=== PATIENT | male | born 1940 | race Caucasian/White ===

== ENCOUNTER 2019-04-24 20:47 | Inpatient (IN) | payer BC, OTHER ==
[2019-04-24] MEDS ORDERED: LIDOCAINE 5% TOPICAL PATCH TP ONE (21:47)
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
[2019-04-24] MEDS ORDERED: diazePAM 2 MG TABLET PO ONE (21:59)
[2019-04-24] MEDS ORDERED: LIDOCAINE 5% TOPICAL PATCH ONE (22:36)
[2019-04-24] MEDS ORDERED: diazePAM 2 MG TABLET ONE (22:36)
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
[2019-04-24] MEDS ORDERED: morphine CARPU-JECT 4 MG/1 ML DISP.SYRIN IVPUSH ONE (23:08)
[2019-04-24] MEDS ORDERED: MORPHINE SULFATE 2 MG/ML VIAL ONE (23:23)
[2019-04-24 23:41] LABS: BASO % 0.6 % (0-2.0); EOS % 1.4 % (0-4.5); HEMATOCRIT 32.3 % (35.4-49); HEMOGLOBIN 10.7 GM/dL (11.7-16.9); LYMPH % 21.4 % (8-40); MCH 30.2 pg (25.7-33.7); MCHC 33.1 g/dl (32.0-35.9); MEAN CELL VOLUME 91.3 fl (80-96); MEAN PLT VOLUME 9.3 fl (7.5-11.1); MONO % 8.1 % (3.8-10.2); NEUT % 68.5 % (42.8-82.8); PLATELET COUNT 124 K/MM3 (134-434); RBC 3.54 M/mm3 (4.00-5.60); RDW 14.3 % (11.9-15.9); WHITE BLOOD COUNT 6.3 K/mm3 (4.0-10.0)
[2019-04-25 00:14] LABS: ALBUMIN 3.4 g/dl (3.4-5.0); BILIRUBIN,TOTAL 0.4 mg/dL (0.2-1); BLOOD UREA NITROGEN 16.3 mg/dL (7-18); CREATININE 1.3 mg/dL (0.55-1.3); POTASSIUM 3.9 mmol/L (3.5-5.1); TOT PROT 6.5 g/dl (6.4-8.2)
[2019-04-25] MEDS ORDERED: morphine CARPU-JECT 4 MG/1 ML DISP.SYRIN IVPUSH ONE (01:00)
[2019-04-25] MEDS ORDERED: morphine SULFATE 4 MG/ML VIAL ONE (01:13)
[2019-04-25] MEDS ORDERED: METHOCARBAMOL 500 MG TABLET PO ONE (02:36)
[2019-04-25] MEDS ORDERED: KETOROLAC TROMETHAMINE 30 MG/1 ML VIAL IVPUSH ONE (02:36)
[2019-04-25] MEDS ORDERED: KETOROLAC TROMETHAMINE 30 MG/1 ML VIAL ONE (02:38)
[2019-04-25] MEDS ORDERED: METHOCARBAMOL 500 MG TABLET ONE (02:38)
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
[2019-04-25] MEDS ORDERED: GABAPENTIN 100 MG CAPSULE (FP) PO SCH ×2 (07:30→14:00)
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
[2019-04-25] MEDS ORDERED: PATIENT'S OWN MEDICATION (NON-FORMULARY) (Lidocaine [Aspercreme] 1 EACH) TP SCH (10:00)
[2019-04-25] MEDS ORDERED: LIDOCAINE PATCH REMOVAL MC SCH (10:00)
[2019-04-25] MEDS ORDERED: METOPROLOL TARTRATE 50 MG TABLET (FP) PO SCH (10:00)
[2019-04-25] MEDS ORDERED: MORPHINE SULFATE 2 MG/ML VIAL ONE (10:21)
[2019-04-25] MEDS: MORPHINE SULFATE 2 MG/ML VIAL IVPUSH PRN ×3 (10:27→20:22)
[2019-04-25 11:37] VITALS: BMI 25.7
[2019-04-25] MEDS: CLOPIDOGREL BISULFATE 75 MG TABLET (FP) PO SCH (12:53)
[2019-04-25] MEDS: LISINOPRIL 20 MG TABLET (FP) PO SCH (12:53)
[2019-04-25] MEDS: METOPROLOL TARTRATE 50 MG TABLET (FP) PO SCH ×2 (12:53→22:38)
[2019-04-25] MEDS: ASPIRIN 81 MG CHEWABLE TABLETS PO SCH (12:54)
[2019-04-25] MEDS: HEPARIN NA (PORCINE) 5,000 UNITS/ML 1ML VIAL SQ SCH ×2 (12:54→22:37)
--- NOTE | 2019-04-25 14:17 | EKG ---
Test Reason : Blood Pressure : / mmHG Vent. Rate : 099 BPM Atrial Rate : 099 BPM P-R Int : 154 ms QRS Dur : 062 ms QT Int : 346 ms P-R-T Axes : 036 010 043 degrees QTc Int : 444 ms POOR DATA QUALITY, INTERPRETATION MAY BE ADVERSELY AFFECTED NORMAL SINUS RHYTHM CANNOT RULE OUT SEPTAL INFARCT , AGE UNDETERMINED ABNORMAL ECG Confirmed by SHIRA RAINES MD ([id number]) on 04/25/2019 2:17:15 PM Referred By: Confirmed By:SHIRA RAINES MD
[2019-04-25] MEDS ORDERED: PT OWN MED DRAWER 7, Y5N ONE ×3 (14:22→22:51)
--- NOTE | 2019-04-25 14:32 | CON.CARD ---
Cardiology Consult (text) - Consultation Consultation Note: cc: back pain hpi: 78 m hx htn, hld, cad s/p remote pci, tavr 02/2018, here with low back pain. Has been present for months but worse now and limiting him so came to ER. No cp sob palps dizzy loc pnd orthopnea le edema. Sees outside placement interviewer regularly. pmh: per hpi psh: tavr social: +tob fam: no premature cad ros: per hpi; all others nl meds: Home Medications Medication Instructions Recorded Acetaminophen [Tylenol] 325 mg PO PRN PRN 04/25/19 Aspirin [ASA -] 81 mg PO DAILY 04/25/19 Clopidogrel Bisulfate [Clopidogrel] 75 mg PO DAILY 04/25/19 Docusate Sodium 100 mg PO BID 04/25/19 Gabapentin 100 mg PO TID 04/25/19 Heparin - 5,000 unit SQ TID 04/25/19 Lidocaine [Aspercreme] 1 each TP DAILY 04/25/19 Lisinopril 20 mg PO DAILY 04/25/19 Metoprolol Tartrate 50 mg PO DAILY 04/25/19 Oxycodone HCl 5 mg PO PRN PRN 04/25/19 Sennosides [Senna] 8.6 mg PO BID 04/25/19 Simvastatin 40 mg PO HS 04/25/19 Tizanidine HCl 2 mg PO TID 04/25/19 pe: Vital Signs Period Temp Pulse Resp BP Sys/López Pulse Ox Last 24 Hr 97.4 F-97.7 F 87-89 16-20 114-162/61-75 95-100 nad no jvd rrr s1s2 no mrg cta bl nl eff aao3 no le e/c/c abd nt nd pos bs no jaundice diaphoresis pos dp pt no carotid bruits Laboratory Last Values WBC 6.3 K/mm3 (4.0-10.0) 04/24/19 23:25 RBC 3.54 M/mm3 (4.00-5.60) L 04/24/19 23:25 Hgb 10.7 GM/dL (11.7-16.9) L 04/24/19 23:25 Hct 32.3 % (35.4-49) L 04/24/19 23:25 MCV 91.3 fl (80-96) 04/24/19 23:25 MCH 30.2 pg (25.7-33.7) 04/24/19 23:25 MCHC 33.1 g/dl (32.0-35.9) 04/24/19 23:25 RDW 14.3 % (11.9-15.9) 04/24/19 23:25 Plt Count 124 K/MM3 (134-434) L 04/24/19 23:25 MPV 9.3 fl (7.5-11.1) 04/24/19 23:25 Absolute Neuts (auto) 4.3 K/mm3 (1.5-8.0) 04/24/19 23:25 Neutrophils % 68.5 % (42.8-82.8) 04/24/19 23:25 Lymphocytes % 21.4 % (8-40) 04/24/19 23:25 Monocytes % 8.1 % (3.8-10.2) 04/24/19 23:25 Eosinophils % 1.4 % (0-4.5) 04/24/19 23:25 Basophils % 0.6 % (0-2.0) 04/24/19 23:25 Nucleated RBC % 0 % (0-0) 04/24/19 23:25 Sodium 135 mmol/L (136-145) L 04/24/19 23:25 Potassium 3.9 mmol/L (3.5-5.1) 04/24/19 23:25 Chloride 103 mmol/L (98-107) 04/24/19 23:25 Carbon Dioxide 22 mmol/L (21-32) 04/24/19 23:25 Anion Gap 10 MMOL/L (8-16) 04/24/19 23:25 BUN 16.3 mg/dL (7-18) 04/24/19 23:25 Creatinine 1.3 mg/dL (0.55-1.3) 04/24/19 23:25 Est GFR (CKD-EPI)AfAm 61.00 04/24/19 23:25 Est GFR (CKD-EPI)NonAf 52.63 04/24/19 23:25 Random Glucose 76 mg/dL (74-106) 04/24/19 23:25 Calcium 9.0 mg/dL (8.5-10.1) 04/24/19 23:25 Total Bilirubin 0.4 mg/dL (0.2-1) 04/24/19 23:25 AST 24 U/L (15-37) 04/24/19 23:25 ALT 23 U/L (13-61) 04/24/19 23:25 Alkaline Phosphatase 61 U/L (45-117) 04/24/19 23:25 Total Protein 6.5 g/dl (6.4-8.2) 04/24/19 23:25 Albumin 3.4 g/dl (3.4-5.0) 04/24/19 23:25 Salicylates 4.5 mg/dL (2.8-20) 04/24/19 23:32 Acetaminophen 28.2 04/24/19 23:32 ecg: sr nl intervals no ischemic changes cxr: clear lungs a/p: 78 m hx htn, hld, cad s/p remote pci, tavr 02/2018, here with low back pain. back pain: -neuro, pain management eval htn: -cont raeann, bb hld: -cont statin cad, remote pci: -stable no angina no signs acs -cont bb, raeann, asa, statin, plavix as s/p tavr: -stable, no signs chf -remains on dapt
[2019-04-25] MEDS: GABAPENTIN 300 MG CAPSULE (FP) PO SCH ×2 (14:51→22:37)
[2019-04-25] MEDS: PHENYLEPHRINE HCL/COCOA BUTTER SUPPOSITORY RC SCH ×2 (16:41→22:38)
[2019-04-25] MEDS: TIZANIDINE HCL 2 MG TABLET PO SCH ×2 (16:41→22:52)
--- NOTE | 2019-04-25 21:55 | CONSULT ---
Consult Consult Specialty:: General Surgery Referred by:: Dr. Jones Reason for Consultation:: hemorrhoids - History of Present Illness Chief Complaint: back pain; prolapsing hemorrhoids - History Source History Provided By: Patient Limitations to Obtaining History: No Limitations - Past Medical History Cardio/Vascular: Yes: CAD, HTN, Hyperlipdemia Gastrointestinal: Yes: Hemorrhoids Musculoskeletal: Yes: Chronic low back pain, Osteoarthritis - Past Surgical History Past Surgical History: Yes: Hernia Repair (RIH), Stent (cardiac and LE), Tonsillectomy, Valve Replacement (TAVR) - Alcohol/Substance Use Hx Alcohol Use: Yes (occasional) History of Substance Use: reports: None - Smoking History Smoking history: Current some day smoker Have you smoked in the past 12 months: Yes If you are a former smoker, when did you quit?: quit 14 years ago but resumed occasional smoking recently - Social History ADL: Independent History of Recent Travel: No Home Medications - Allergies Allergies/Adverse Reactions: Allergies Allergy/AdvReac Type Severity Reaction Status Date / Time No Known Allergies Allergy Verified 04/24/19 22:13 - Home Medications Home Medications: Ambulatory Orders Acetaminophen [Tylenol] 325 mg PO PRN PRN 04/25/19 Aspirin [ASA -] 81 mg PO DAILY 04/25/19 Clopidogrel Bisulfate [Clopidogrel] 75 mg PO DAILY 04/25/19 Docusate Sodium 100 mg PO BID 04/25/19 Gabapentin 100 mg PO TID 04/25/19 Heparin - 5,000 unit SQ TID 04/25/19 Lidocaine [Aspercreme] 1 each TP DAILY 04/25/19 Lisinopril 20 mg PO DAILY 04/25/19 Metoprolol Tartrate 50 mg PO DAILY 04/25/19 Oxycodone HCl 5 mg PO PRN PRN 04/25/19 Sennosides [Senna] 8.6 mg PO BID 04/25/19 Simvastatin 40 mg PO HS 04/25/19 Tizanidine HCl 2 mg PO TID 04/25/19 Family Medical History Family History: Unremarkable (noncontributory) Review of Systems - Review of Systems Constitutional: denies: Chills, Fever Eyes: denies: Blurred Vision, Recent Change in Vision HENT: denies: Difficult Swallowing, Throat Pain Neck: denies: Swollen Glands, Tenderness Cardiovascular: denies: Chest Pain, Palpitations Respiratory: denies: Cough, SOB Gastrointestinal: reports: Other (hemorrhoids). denies: Abdominal Pain, Constipation, Diarrhea, Nausea, Vomiting Genitourinary: reports: Other (has to push hard, feels like bladder full and can 't empty well) Musculoskeletal: reports: Back Pain, Joint Pain (right hip/buttock from back) Integumentary: denies: Change in Color, Rash Neurological: denies: Dizziness, Headache Physical Exam Vital Signs: Vital Signs Temperature 98.0 F 04/25/19 15:00 Pulse Rate 89 04/25/19 15:00 Respiratory Rate 20 04/25/19 15:00 Blood Pressure 139/79 04/25/19 15:00 O2 Sat by Pulse Oximetry (%) 100 04/25/19 10:07 Constitutional: Yes: Well Nourished, No Distress, Calm Eyes: Yes: Conjunctiva Clear, EOM Intact HENT: Yes: Atraumatic, Normocephalic Neck: Yes: Supple, Trachea Midline Cardiovascular: Yes: Regular Rate and Rhythm, Murmur Respiratory: Yes: Regular, CTA Bilaterally Gastrointestinal: Yes: Normal Bowel Sounds, Soft, Tenderness (mild suprapubic - bladder feels full). No: Distention, Tenderness, Rebound ...Rectal Exam: Yes: Hemorrhoids/External (left-sided skin tags present, minimal tenderness along left edge of anus), Hemorrhoids/Internal (pt showed picture of prolapsed, large internal hemorrhoid - not palpable on current exam, not currently bothering him - he usually pushes it back in), Sphincter Tone Normal Renal/: Yes: Bladder Distention. No: CVA Tenderness - Left, CVA Tenderness - Right Musculoskeletal: Yes: Back Pain. No: Joint Swelling Extremities: No: Cool, Cyanosis Edema: No Peripheral Pulses WNL: Yes Integumentary: No: Jaundice, Rash Neurological: Yes: Alert, Oriented Psychiatric: Yes: Alert, Oriented Labs: CBC, BMP 04/24/19 23:25 04/24/19 23:25 CMP Sodium 135 mmol/L (136-145) L 04/24/19 23:25 Potassium 3.9 mmol/L (3.5-5.1) 04/24/19 23:25 Chloride 103 mmol/L (98-107) 04/24/19 23:25 Carbon Dioxide 22 mmol/L (21-32) 04/24/19 23:25 Anion Gap 10 MMOL/L (8-16) 04/24/19 23:25 BUN 16.3 mg/dL (7-18) 04/24/19 23:25 Creatinine 1.3 mg/dL (0.55-1.3) 04/24/19 23:25 Est GFR (CKD-EPI)AfAm 61.00 04/24/19 23:25 Est GFR (CKD-EPI)NonAf 52.63 04/24/19 23:25 Random Glucose 76 mg/dL (74-106) 04/24/19 23:25 Calcium 9.0 mg/dL (8.5-10.1) 04/24/19 23:25 Total Bilirubin 0.4 mg/dL (0.2-1) 04/24/19 23:25 AST 24 U/L (15-37) 04/24/19 23:25 ALT 23 U/L (13-61) 04/24/19 23:25 Alkaline Phosphatase 61 U/L (45-117) 04/24/19 23:25 Total Protein 6.5 g/dl (6.4-8.2) 04/24/19 23:25 Albumin 3.4 g/dl (3.4-5.0) 04/24/19 23:25 BUN/Cr upper normal Imaging - Results Cat Scan: Image Reviewed (lumbar CT images reviewed - anorectal area not visualized) Problem List - Problems (1) Hemorrhoids that prolapse with straining and require manual replacement back inside anal canal Assessment/Plan: pt self-manages well not currently bothersome he states no longer so swollen no pain, not prolapsed self-reduction prn pt on asa and plavix no intervention indicated at this time consider colorectal referral once back issue is resolved Thank you for the opportunity to participate in the care of this patient. Code(s): K64.2 - THIRD DEGREE HEMORRHOIDS (2) Residual hemorrhoidal skin tags Assessment/Plan: external hemorrhoids not thrombosed, not bothersome agree with preparation H topically PRN no intervention indicated Code(s): K64.4 - RESIDUAL HEMORRHOIDAL SKIN TAGS (3) HTN (hypertension) Code(s): I10 - ESSENTIAL (PRIMARY) HYPERTENSION Qualifiers: Hypertension type: essential hypertension Qualified Code(s): I10 - Essential (primary) hypertension (4) Intractable back pain Code(s): M54.9 - DORSALGIA, UNSPECIFIED (5) Osteoarthritis Code(s): M19.90 - UNSPECIFIED OSTEOARTHRITIS, UNSPECIFIED SITE Qualifiers: Osteoarthritis location: spine Spinal region: lumbosacral Spinal osteoarthritis complication: with radiculopathy Qualified Code(s): M47.27 - Other spondylosis with radiculopathy, lumbosacral region (6) CAD (coronary artery disease) Code(s): I25.10 - ATHSCL HEART DISEASE OF [place] CORONARY ARTERY W/O ANG PCTRS Qualifiers: Coronary Disease-Associated Artery/Lesion type: [place] artery [place] vs. transplanted heart: [place] heart Associated angina: without angina Qualified Code(s): I25.10 - Atherosclerotic heart disease of [place] coronary artery without angina pectoris
[2019-04-25] MEDS: HYDROCORTISONE 2.5% TOPICAL CREAM 30 GM TUBE TP SCH (22:37)
[2019-04-25] MEDS: ATORVASTATIN CA 20 MG TABLET (FP) PO SCH (22:37)
[2019-04-26] MEDS: MORPHINE SULFATE 2 MG/ML VIAL IVPUSH PRN ×4 (00:23→18:50)
--- NOTE | 2019-04-26 05:16 | HOSP ---
Subjective - Review of Symptoms Events since last encounter: 78 year old male hospitalized due intractable low back pain, radiating down RLE. @ 4:04 am Rn notified [facility] bladder scan showed 999 ml of urine - straight cath was inserted returned noted 1000 ml - repeat bladder scan in 2-3 hours if noted with retention will ordered Parks catheter General: No: Chills, Night Sweats, Fatigue, Malaise, Appetite, Other HEENT: No: Head Aches, Visual Changes, Eye Pain, Ear Pain, Dysphasia, Sinus Congestion, Post Nasal Drip, Sore Throat, Other Pulmonary: No: Dyspnea, Cough, Pleuritic Chest Pain, Other Cardiovascular: No: Chest Pain, Palpitations, Orthopnea, Paroxysmal Noc. Dyspnea , Edema, Light Headedness, Other Gastrointestinal: No: Nausea, NOSYM, Vomiting, Abdominal Pain, Diarrhea, Constipation, Melena, Hematochezia, Other Genitourinary: Yes: Retention Musculoskeletal: No: No Symptoms, Back Pain, Crepitus, Decreased ROM, Extremity Pain, Joint Pain, Joint Swelling, Muscle Pain, Muscle Cramps, Muscle Weakness, Other Neurological: No: Weakness, Numbness, Incoordination, Change in speech, Confusion, Seizures, Other Physical Examination Vital Signs: Vital Signs Temperature 97.8 F 04/25/19 23:54 Pulse Rate 80 04/25/19 23:54 Respiratory Rate 20 04/25/19 23:54 Blood Pressure 149/70 04/25/19 23:54 O2 Sat by Pulse Oximetry (%) 100 04/25/19 20:00 Constitutional: Yes: No Distress, Calm Eyes: Yes: Conjunctiva Clear, EOM Intact HENT: Yes: Atraumatic, Normocephalic Neck: Yes: Supple, Trachea Midline Cardiovascular: Yes: Regular Rate and Rhythm Respiratory: Yes: Regular, CTA Bilaterally Gastrointestinal: Yes: Normal Bowel Sounds, Soft Renal/: Yes: Bladder Distention Labs: CBC, BMP 04/24/19 23:25 04/24/19 23:25 Hospitalist Encounter Assessment: # bladder retention - suprapubic pain - bladder sono showed 999 ml - straight cath done x1 1000ml drained - repeat sono in 2 hours if still with retention consider parks cath
[2019-04-26] MEDS ORDERED: PT OWN MED DRAWER 7, Y5N ONE ×2 (07:12→22:04)
[2019-04-26] MEDS: TIZANIDINE HCL 2 MG TABLET PO SCH ×3 (07:13→22:15)
[2019-04-26] MEDS: GABAPENTIN 300 MG CAPSULE (FP) PO SCH ×3 (07:13→22:14)
[2019-04-26 08:51] LABS: HEMATOCRIT 35.8 % (35.4-49); MCH 30.4 pg (25.7-33.7); MCHC 33.6 g/dl (32.0-35.9); MEAN CELL VOLUME 90.6 fl (80-96); MEAN PLT VOLUME 8.6 fl (7.5-11.1); PLATELET COUNT 174 K/MM3 (134-434); RBC 3.95 M/mm3 (4.00-5.60); RDW 14.5 % (11.9-15.9); WHITE BLOOD COUNT 7.3 K/mm3 (4.0-10.0)
[2019-04-26 09:06] LABS: ALBUMIN 3.6 g/dl (3.4-5.0); BILIRUBIN,TOTAL 0.5 mg/dL (0.2-1); BLOOD UREA NITROGEN 16.3 mg/dL (7-18); CALCIUM 9.7 mg/dL (8.5-10.1); POTASSIUM 4.9 mmol/L (3.5-5.1); TOT PROT 7.2 g/dl (6.4-8.2)
[2019-04-26] MEDS: ASPIRIN 81 MG CHEWABLE TABLETS PO SCH (10:57)
[2019-04-26] MEDS: HEPARIN NA (PORCINE) 5,000 UNITS/ML 1ML VIAL SQ SCH ×2 (10:58→22:15)
[2019-04-26] MEDS: LISINOPRIL 20 MG TABLET (FP) PO SCH (10:58)
[2019-04-26] MEDS: CLOPIDOGREL BISULFATE 75 MG TABLET (FP) PO SCH (10:58)
[2019-04-26] MEDS: METOPROLOL TARTRATE 50 MG TABLET (FP) PO SCH ×2 (10:59→22:17)
[2019-04-26] MEDS: PHENYLEPHRINE HCL/COCOA BUTTER SUPPOSITORY RC SCH ×2 (10:59→22:16)
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
[2019-04-26 12:42] LABS: EPI CELLS 0.7 /HPF (0-5/HPF); HYALINE CASTS 107 /lpf (0-8); URINE APPEARANCE CLOUDY; URINE BACTERIA 8.1 /hpf (NEGATIVE); URINE BILIRUBIN NEGATIVE (NEGATIVE); URINE COLOR YELLOW; URINE GLUCOSE (UA) NEGATIVE (NEGATIVE); URINE KETONE 1+ (NEGATIVE); URINE LEUK ESTERASE 2+ (NEGATIVE); URINE NITRITE NEGATIVE (NEGATIVE); URINE PROTEIN NEGATIVE (NEGATIVE); URINE RBC 6 /hpf (0-4); URINE UROBILINOGEN 0.2 mg/dL (0.2-1.0); URINE WBC 130 /hpf (0-5)
[2019-04-26] MEDS ORDERED: CEFTRIAXONE 1 GM in DEXTROSE 5%-WATER - 50 ML IVPB ONE (13:00)
[2019-04-26] MEDS ORDERED: cefTRIAXone SODIUM 1 GM VIAL ONE (14:35)
[2019-04-26] MEDS ORDERED: DEXTROSE 5%-WATER - 50 ML IVPB ONE (14:35)
[2019-04-26] MEDS: DOCUSATE SODIUM 100 MG CAPSULE (FP) PO SCH ×2 (14:45→22:14)
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
[2019-04-26] MEDS: LIDOCAINE 5% TOPICAL PATCH TP SCH (18:04)
[2019-04-26] MEDS ORDERED: INSULIN (NOVOLOG) ASPART 100 UNITS/ML 10ML VIAL ONE (22:04)
[2019-04-26] MEDS: ATORVASTATIN CA 20 MG TABLET (FP) PO SCH (22:15)
[2019-04-26] MEDS: LIDOCAINE PATCH REMOVAL MC SCH (22:16)
[2019-04-26] MEDS: HYDROCORTISONE 2.5% TOPICAL CREAM 30 GM TUBE TP SCH ×2 (22:22→22:50)
[2019-04-27] MEDS: MORPHINE SULFATE 2 MG/ML VIAL IVPUSH PRN ×2 (01:00→06:08)
[2019-04-27] MEDS: GABAPENTIN 300 MG CAPSULE (FP) PO SCH ×3 (06:08→21:43)
[2019-04-27] MEDS: DOCUSATE SODIUM 100 MG CAPSULE (FP) PO SCH ×3 (06:08→21:43)
[2019-04-27] MEDS: TIZANIDINE HCL 2 MG TABLET PO SCH ×3 (06:09→21:45)
[2019-04-27] MEDS ORDERED: PT OWN MED DRAWER 7, Y5N ONE ×2 (06:56→21:08)
[2019-04-27 09:56] LABS: BASO % 0.4 % (0-2.0); EOS % 1.5 % (0-4.5); HEMATOCRIT 35.4 % (35.4-49); HEMOGLOBIN 11.7 GM/dL (11.7-16.9); LYMPH % 15.9 % (8-40); MCH 30.2 pg (25.7-33.7); MCHC 33.1 g/dl (32.0-35.9); MEAN CELL VOLUME 91.2 fl (80-96); MEAN PLT VOLUME 8.7 fl (7.5-11.1); MONO % 5.7 % (3.8-10.2); NEUT % 76.5 % (42.8-82.8); PLATELET COUNT 172 K/MM3 (134-434); RBC 3.88 M/mm3 (4.00-5.60); RDW 14.1 % (11.9-15.9); WHITE BLOOD COUNT 6.8 K/mm3 (4.0-10.0)
[2019-04-27 10:19] LABS: ALBUMIN 3.5 g/dl (3.4-5.0); BILIRUBIN,TOTAL 0.3 mg/dL (0.2-1); BLOOD UREA NITROGEN 20.5 mg/dL (7-18); CALCIUM 9.6 mg/dL (8.5-10.1); CREATININE 1.2 mg/dL (0.55-1.3); MAGNESIUM 2.2 mg/dL (1.8-2.4)
[2019-04-27] MEDS: LISINOPRIL 20 MG TABLET (FP) PO SCH (11:06)
[2019-04-27] MEDS: ASPIRIN 81 MG CHEWABLE TABLETS PO SCH (11:06)
[2019-04-27] MEDS: CLOPIDOGREL BISULFATE 75 MG TABLET (FP) PO SCH (11:06)
[2019-04-27] MEDS: HEPARIN NA (PORCINE) 5,000 UNITS/ML 1ML VIAL SQ SCH ×2 (11:06→21:42)
[2019-04-27] MEDS: METOPROLOL TARTRATE 50 MG TABLET (FP) PO SCH ×2 (11:06→21:43)
[2019-04-27] MEDS ORDERED: oxyCODONE HCL 5 MG TABLET PO PRN (12:35)
[2019-04-27] MEDS ORDERED: POLYETHYLENE GLYCOL 3350 119 GM BTL PO ONE (12:37)
[2019-04-27] MEDS ORDERED: TAMSULOSIN HCL 0.4 MG CAP PO ONE (12:39)
[2019-04-27] MEDS ORDERED: ACETAMINOPHEN 325 MG TABLET (FP) PO PRN (12:39)
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
[2019-04-27] MEDS ORDERED: LIDOCAINE 5% TOPICAL PATCH TP ONE (12:51)
[2019-04-27] MEDS: oxyCODONE HCL 10 MG SUSTAINED ACTING TABLET PO SCH ×2 (13:00→21:42)
[2019-04-27] MEDS: LIDOCAINE 5% TOPICAL PATCH TP SCH (13:10)
[2019-04-27] MEDS: PHENYLEPHRINE HCL/COCOA BUTTER SUPPOSITORY RC SCH ×2 (13:10→21:45)
[2019-04-27] MEDS ORDERED: SENNOSIDES 8.6MG TABLET (FP) PO PRN (14:33)
[2019-04-27] MEDS ORDERED: BISACODYL 10 MG SUPP.RECT PR PRN (14:33)
[2019-04-27] MEDS: oxyCODONE HCL 5 MG TABLET PO PRN (18:35)
[2019-04-27] MEDS: ATORVASTATIN CA 20 MG TABLET (FP) PO SCH (21:42)
[2019-04-27] MEDS: LIDOCAINE PATCH REMOVAL MC SCH ×2 (21:44)
[2019-04-28] MEDS: TIZANIDINE HCL 2 MG TABLET PO SCH ×3 (06:03→22:37)
[2019-04-28] MEDS: DOCUSATE SODIUM 100 MG CAPSULE (FP) PO SCH ×3 (06:04→22:36)
[2019-04-28] MEDS: oxyCODONE HCL 5 MG TABLET PO PRN ×2 (06:04→13:09)
[2019-04-28] MEDS: GABAPENTIN 300 MG CAPSULE (FP) PO SCH ×3 (06:04→22:36)
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
[2019-04-28] MEDS ORDERED: POLYETHYLENE GLYCOL 3350 119 GM BTL PO SCH (10:00)
[2019-04-28] MEDS: LIDOCAINE 5% TOPICAL PATCH TP SCH (10:49)
[2019-04-28] MEDS: TAMSULOSIN HCL 0.4 MG CAP PO SCH (10:50)
[2019-04-28] MEDS: oxyCODONE HCL 10 MG SUSTAINED ACTING TABLET PO SCH ×2 (10:50→22:36)
[2019-04-28] MEDS: CLOPIDOGREL BISULFATE 75 MG TABLET (FP) PO SCH (10:50)
[2019-04-28] MEDS: HEPARIN NA (PORCINE) 5,000 UNITS/ML 1ML VIAL SQ SCH ×2 (10:51→22:36)
[2019-04-28] MEDS: ASPIRIN 81 MG CHEWABLE TABLETS PO SCH (10:51)
[2019-04-28] MEDS: POLYETHYLENE GLYCOL 3350 119 GM BTL PO SCH ×2 (10:57→22:41)
[2019-04-28] MEDS: METOPROLOL TARTRATE 50 MG TABLET (FP) PO SCH ×2 (10:57→22:36)
[2019-04-28 11:49] LABS: BASO % 0.5 % (0-2.0); EOS % 1.7 % (0-4.5); HEMOGLOBIN 11.9 GM/dL (11.7-16.9); LYMPH % 15.6 % (8-40); MCH 30.1 pg (25.7-33.7); MEAN CELL VOLUME 91.2 fl (80-96); MEAN PLT VOLUME 9.4 fl (7.5-11.1); MONO % 4.6 % (3.8-10.2); NEUT % 77.6 % (42.8-82.8); PLATELET COUNT 169 K/MM3 (134-434); RBC 3.95 M/mm3 (4.00-5.60); RDW 14.3 % (11.9-15.9); WHITE BLOOD COUNT 6.7 K/mm3 (4.0-10.0)
[2019-04-28 12:16] LABS: ALBUMIN 3.4 g/dl (3.4-5.0); BILIRUBIN,TOTAL 0.3 mg/dL (0.2-1); BLOOD UREA NITROGEN 26.9 mg/dL (7-18); CALCIUM 9.3 mg/dL (8.5-10.1); CREATININE 1.7 mg/dL (0.55-1.3); MAGNESIUM 2.3 mg/dL (1.8-2.4); POTASSIUM 4.5 mmol/L (3.5-5.1)
[2019-04-28] MEDS: LISINOPRIL 20 MG TABLET (FP) PO SCH (12:17)
[2019-04-28] MEDS ORDERED: PT OWN MED DRAWER 7, Y5N ONE ×2 (12:25→22:35)
[2019-04-28] MEDS: PHENYLEPHRINE HCL/COCOA BUTTER SUPPOSITORY RC SCH ×2 (13:07→22:37)
--- NOTE | 2019-04-28 15:32 | PN ---
Progress Note (short form) - Note Progress Note: s: no chest pain, palps, dizziness, dyspnea Current Medications Aspirin (Asa -) 81 mg PO DAILY [facility] Last Admin: 04/28/19 10:51 Dose: 81 mg Atorvastatin Calcium (Lipitor -) 20 mg PO HS [facility] Last Admin: 04/27/19 21:42 Dose: 20 mg Bisacodyl (Dulcolax Suppository -) 10 mg [place] PRN PRN PRN Reason: CONSTIPATION Clopidogrel Bisulfate (Plavix -) 75 mg PO DAILY [facility] Last Admin: 04/28/19 10:50 Dose: 75 mg [place] Butter/Phenylephrine (Preparation H Suppository) 1 each RC BID [facility] Last Admin: 04/28/19 13:07 Dose: 1 each Docusate Sodium (Colace -) 100 mg PO TID [facility] Last Admin: 04/28/19 13:07 Dose: 100 mg Gabapentin (Neurontin -) 300 mg PO TID [facility] Last Admin: 04/28/19 13:08 Dose: 300 mg Heparin Sodium (Porcine) (Heparin -) 5,000 unit SQ BID [facility] Last Admin: 04/28/19 10:51 Dose: 5,000 unit Hydrocortisone (Anusol 2.5% Hc Cream -) 1 applic TP ONCE [facility] Last Admin: 04/26/19 22:50 Dose: 1 applic Lidocaine (Lidoderm Patch -) 2 patch TP DAILY [facility] Last Admin: 04/28/19 10:49 Dose: 2 patch Lisinopril (Prinivil) 20 mg PO DAILY [facility] Last Admin: 04/28/19 12:17 Dose: Not Given Metoprolol Tartrate (Lopressor -) 50 mg PO BID [facility] Last Admin: 04/28/19 10:57 Dose: Not Given Miscellaneous (Lidoderm Patch Removal) 1 each MC DAILY@2199 [facility] Last Admin: 04/27/19 21:44 Dose: 1 each Miscellaneous (Lidoderm Patch Removal) 1 each MC DAILY@2199 [facility] Last Admin: 04/27/19 21:44 Dose: 1 each Oxycodone HCl (Oxycontin -) 10 mg PO BID [facility] Last Admin: 04/28/19 10:50 Dose: 10 mg Oxycodone HCl (Roxicodone -) 5 mg PO Q4H PRN PRN Reason: PAIN LEVEL 6-10 Last Admin: 04/28/19 13:09 Dose: 5 mg Polyethylene Glycol (Miralax (For Daily Use) -) 17 gm PO BID [facility] Last Admin: 04/28/19 10:57 Dose: 17 grams Senna (Senna -) 2 tab PO [facility] Tamsulosin HCl (Flomax -) 0.8 mg PO DAILY@0830 [facility] Last Admin: 04/28/19 10:50 Dose: 0.8 mg Tizanidine HCl (Tizanidine Hcl) 2 mg PO TID [facility] Last Admin: 04/28/19 13:08 Dose: 2 mg Vital Signs Period Temp Pulse Resp BP Sys/López Pulse Ox Last 24 Hr 98.4 F 62-77 20-20 102-128/48-57 96-96 nad no jvd rrr s1s2 no mrg cta bl nl eff aao3 no le e/c/c abd nt nd pos bs no jaundice diaphoresis pos dp pt no carotid bruits ecg: sr nl intervals no ischemic changes cxr: clear lungs a/p: 78 m hx htn, hld, cad s/p remote pci, tavr 02/2018, here with low back pain. back pain: -neuro, pain management eval, MRI pending htn: -cont raeann, bb hld: -cont statin cad, remote pci: -stable no angina no signs acs -cont bb, raeann, asa, statin, plavix - last PCI 2009, >1 year since TAVR, if intervention needed would be able to hold plavix for 5 days prior to procedure as s/p tavr: -stable, no signs chf -remains on dapt
[2019-04-28] MEDS: SENNOSIDES 8.6MG TABLET (FP) PO SCH (22:36)
[2019-04-28] MEDS: LIDOCAINE PATCH REMOVAL MC SCH ×2 (22:37→22:42)
[2019-04-28] MEDS: HYDROCORTISONE 2.5% TOPICAL CREAM 30 GM TUBE TP SCH (22:37)
[2019-04-28] MEDS: ATORVASTATIN CA 20 MG TABLET (FP) PO SCH (22:37)
[2019-04-29] MEDS: DOCUSATE SODIUM 100 MG CAPSULE (FP) PO SCH ×3 (05:08→21:17)
[2019-04-29] MEDS: TIZANIDINE HCL 2 MG TABLET PO SCH ×3 (05:08→21:24)
[2019-04-29] MEDS: GABAPENTIN 300 MG CAPSULE (FP) PO SCH ×3 (05:09→21:17)
[2019-04-29] MEDS: TAMSULOSIN HCL 0.4 MG CAP PO SCH (08:55)
[2019-04-29] MEDS: LIDOCAINE 5% TOPICAL PATCH TP SCH (09:36)
[2019-04-29] MEDS: METOPROLOL TARTRATE 50 MG TABLET (FP) PO SCH ×2 (09:36→21:17)
[2019-04-29] MEDS: CLOPIDOGREL BISULFATE 75 MG TABLET (FP) PO SCH (09:36)
[2019-04-29] MEDS: oxyCODONE HCL 10 MG SUSTAINED ACTING TABLET PO SCH ×2 (09:37→21:15)
[2019-04-29] MEDS: LISINOPRIL 20 MG TABLET (FP) PO SCH (09:38)
[2019-04-29] MEDS: ASPIRIN 81 MG CHEWABLE TABLETS PO SCH (09:38)
[2019-04-29] MEDS: HEPARIN NA (PORCINE) 5,000 UNITS/ML 1ML VIAL SQ SCH (09:39)
[2019-04-29] MEDS: PHENYLEPHRINE HCL/COCOA BUTTER SUPPOSITORY RC SCH ×2 (09:40→21:23)
[2019-04-29] MEDS: POLYETHYLENE GLYCOL 3350 119 GM BTL PO SCH ×2 (09:43→21:23)
[2019-04-29] MEDS ORDERED: PT OWN MED DRAWER 7, Y5N ONE ×2 (09:53→13:35)
--- NOTE | 2019-04-29 11:47 | PN ---
Progress Note (short form) - Note Progress Note: s: no chest pain, palps, dizziness, dyspnea Current Medications Aspirin (Asa -) 81 mg PO DAILY [facility] Last Admin: 04/29/19 09:38 Dose: 81 mg Atorvastatin Calcium (Lipitor -) 20 mg PO HS [facility] Last Admin: 04/28/19 22:37 Dose: 20 mg Bisacodyl (Dulcolax Suppository -) 10 mg [place] PRN PRN PRN Reason: CONSTIPATION Clopidogrel Bisulfate (Plavix -) 75 mg PO DAILY [facility] Last Admin: 04/29/19 09:36 Dose: 75 mg [place] Butter/Phenylephrine (Preparation H Suppository) 1 each RC BID [facility] Last Admin: 04/29/19 09:40 Dose: 1 each Docusate Sodium (Colace -) 100 mg PO TID [facility] Last Admin: 04/29/19 05:08 Dose: 100 mg Gabapentin (Neurontin -) 300 mg PO TID [facility] Last Admin: 04/29/19 05:09 Dose: 300 mg Heparin Sodium (Porcine) (Heparin -) 5,000 unit SQ BID [facility] Last Admin: 04/29/19 09:39 Dose: 5,000 unit Hydrocortisone (Anusol 2.5% Hc Cream -) 1 applic TP ONCE [facility] Last Admin: 04/28/19 22:37 Dose: 1 applic Lidocaine (Lidoderm Patch -) 2 patch TP DAILY [facility] Last Admin: 04/29/19 09:36 Dose: 2 patch Lisinopril (Prinivil) 20 mg PO DAILY [facility] Last Admin: 04/29/19 09:38 Dose: 20 mg Metoprolol Tartrate (Lopressor -) 50 mg PO BID [facility] Last Admin: 04/29/19 09:36 Dose: 50 mg Miscellaneous (Lidoderm Patch Removal) 1 each MC DAILY@0 [facility] Last Admin: 04/28/19 22:42 Dose: 1 each Miscellaneous (Lidoderm Patch Removal) 1 each MC DAILY@0 [facility] Last Admin: 04/28/19 22:37 Dose: 1 each Oxycodone HCl (Oxycontin -) 10 mg PO BID [facility] Last Admin: 04/29/19 09:37 Dose: 10 mg Oxycodone HCl (Roxicodone -) 5 mg PO Q4H PRN PRN Reason: PAIN LEVEL 6-10 Last Admin: 04/28/19 13:09 Dose: 5 mg Polyethylene Glycol (Miralax (For Daily Use) -) 17 gm PO BID [facility] Last Admin: 04/29/19 09:43 Dose: 17 grams Senna (Senna -) 2 tab PO HS [facility] Last Admin: 04/28/19 22:36 Dose: 2 tab Tamsulosin HCl (Flomax -) 0.8 mg PO DAILY@0830 [facility] Last Admin: 04/29/19 08:55 Dose: 0.8 mg Tizanidine HCl (Tizanidine Hcl) 2 mg PO TID [facility] Last Admin: 04/29/19 05:08 Dose: 2 mg Vital Signs Period Temp Pulse Resp BP Sys/López Pulse Ox Last 24 Hr 97.6 F-98.4 F 71-77 18-20 110-115/47-55 96-96 nad no jvd rrr s1s2 no mrg cta bl nl eff aao3 no le e/c/c abd nt nd pos bs no jaundice diaphoresis pos dp pt no carotid bruits ecg: sr nl intervals no ischemic changes cxr: clear lungs a/p: 78 m hx htn, hld, cad s/p remote pci, tavr 02/2018, here with low back pain. back pain: -neuro, pain management eval htn: -cont raeann, bb hld: -cont statin cad, remote pci: -stable no angina no signs acs -cont bb, raeann, asa, statin, plavix - last PCI 2009, >1 year since TAVR, if intervention needed would be able to hold plavix for 5 days prior to procedure as s/p tavr: -stable, no signs chf -remains on dapt
[2019-04-29 12:34] LABS: BASO % 0.5 % (0-2.0); EOS % 1.5 % (0-4.5); HEMATOCRIT 33.5 % (35.4-49); HEMOGLOBIN 11.4 GM/dL (11.7-16.9); LYMPH % 12.8 % (8-40); MCH 30.8 pg (25.7-33.7); MCHC 34.2 g/dl (32.0-35.9); MEAN PLT VOLUME 8.8 fl (7.5-11.1); MONO % 4.3 % (3.8-10.2); NEUT % 80.9 % (42.8-82.8); PLATELET COUNT 174 K/MM3 (134-434); RBC 3.72 M/mm3 (4.00-5.60); RDW 14.3 % (11.9-15.9); WHITE BLOOD COUNT 6.8 K/mm3 (4.0-10.0)
[2019-04-29 13:02] LABS: ALBUMIN 3.3 g/dl (3.4-5.0); BILIRUBIN,TOTAL 0.4 mg/dL (0.2-1); CALCIUM 9.7 mg/dL (8.5-10.1); CREATININE 1.1 mg/dL (0.55-1.3); MAGNESIUM 2.2 mg/dL (1.8-2.4); POTASSIUM 5.3 mmol/L (3.5-5.1); TOT PROT 7.1 g/dl (6.4-8.2)
[2019-04-29] MEDS ORDERED: SODIUM POLYSTYRENE SULFONATE 15 GM/60 ML BOTTLE PO ONE (13:32)
--- NOTE | 2019-04-29 13:42 | PN ---
Progress Note (short form) - Note Progress Note: C/o RLE weakness and persistent RLE pain. MRI noted. Neurofibroma vs herniated disc L4-L5 foramina. Dr Mccauley is planning surgery vs TARAN after off Plavix /ASA x 5 days. Cardiology consult appreciated. They agree with 5 days withholding ASA/PLavix. Last Vital Signs Temp Pulse Resp BP Pulse Ox 97.6 F 71 18 115/47 L 96 04/29/19 08:53 04/29/19 08:53 04/29/19 08:53 04/29/19 08:53 04/29/19 09:00 PE A&Ox3 Neck supple Lungs are clear Heart S1S2 regular Abdomen soft, NT RLE pain on streight elevation. Current Active Problems Problem Status Onset Back pain Acute CAD (coronary artery disease) Acute DVT prophylaxis Acute Diabetes 1.5, managed as type 2 Hyperkalemia. Acute HTN (hypertension) Acute Hemorrhoids that prolapse with straining and require manual replacement back inside anal canal Acute Intractable back pain LS DISC HERNIATION VS Fifroma L2-3, L3-4 Acute Osteoarthritis Acute Prophylactic measure Acute Residual hemorrhoidal skin tags Acute Urinary retention Acute Plan D/C Heparin, Plavix, ASA Lovenox 60 mg Q12 Kayexalate 30 Repeat BMP in AM Continue Oxycodone for pain, Neurontine, Tizanidine. Problem List - Problems (1) CAD (coronary artery disease) Code(s): I25.10 - ATHSCL HEART DISEASE OF [place] CORONARY ARTERY W/O ANG PCTRS Qualifiers: Coronary Disease-Associated Artery/Lesion type: [place] artery [place] vs. transplanted heart: [place] heart Associated angina: without angina Qualified Code(s): I25.10 - Atherosclerotic heart disease of [place] coronary artery without angina pectoris (2) Intractable back pain Code(s): M54.9 - DORSALGIA, UNSPECIFIED (3) Diabetes 1.5, managed as type 2 Code(s): E13.9 - OTHER SPECIFIED DIABETES MELLITUS WITHOUT COMPLICATIONS (4) HTN (hypertension) Code(s): I10 - ESSENTIAL (PRIMARY) HYPERTENSION Qualifiers: Hypertension type: essential hypertension Qualified Code(s): I10 - Essential (primary) hypertension
[2019-04-29] MEDS: ENOXAPARIN NA (PORCINE) 60 MG/0.6 ML DISP.SYRIN SQ SCH (14:03)
[2019-04-29] MEDS: SENNOSIDES 8.6MG TABLET (FP) PO SCH (21:16)
[2019-04-29] MEDS: ATORVASTATIN CA 20 MG TABLET (FP) PO SCH (21:17)
[2019-04-29] MEDS: HYDROCORTISONE 2.5% TOPICAL CREAM 30 GM TUBE TP SCH (21:29)
[2019-04-29] MEDS: LIDOCAINE PATCH REMOVAL MC SCH ×2 (21:30)
[2019-04-30] MEDS: ENOXAPARIN NA (PORCINE) 60 MG/0.6 ML DISP.SYRIN SQ SCH ×2 (02:40→13:05)
[2019-04-30] MEDS: TIZANIDINE HCL 2 MG TABLET PO SCH ×3 (05:59→22:14)
[2019-04-30] MEDS: DOCUSATE SODIUM 100 MG CAPSULE (FP) PO SCH ×3 (05:59→22:13)
[2019-04-30] MEDS: GABAPENTIN 300 MG CAPSULE (FP) PO SCH ×3 (05:59→22:13)
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
[2019-04-30 08:39] LABS: BLOOD UREA NITROGEN 29.1 mg/dL (7-18); CALCIUM 9.2 mg/dL (8.5-10.1); CREATININE 1.3 mg/dL (0.55-1.3)
[2019-04-30] MEDS: TAMSULOSIN HCL 0.4 MG CAP PO SCH (10:21)
[2019-04-30] MEDS: LISINOPRIL 20 MG TABLET (FP) PO SCH (10:22)
[2019-04-30] MEDS: LIDOCAINE 5% TOPICAL PATCH TP SCH (10:22)
[2019-04-30] MEDS: METOPROLOL TARTRATE 50 MG TABLET (FP) PO SCH ×2 (10:22→22:13)
[2019-04-30] MEDS: PHENYLEPHRINE HCL/COCOA BUTTER SUPPOSITORY RC SCH ×2 (10:23→22:15)
[2019-04-30] MEDS: POLYETHYLENE GLYCOL 3350 119 GM BTL PO SCH ×2 (10:24→22:13)
[2019-04-30] MEDS: oxyCODONE HCL 10 MG SUSTAINED ACTING TABLET PO SCH ×2 (10:24→22:13)
[2019-04-30] MEDS: oxyCODONE HCL 5 MG TABLET PO PRN (15:06)
--- NOTE | 2019-04-30 15:34 | PN ---
Progress Note (short form) - Note Progress Note: s: no chest pain, palps, dizziness, dyspnea Current Medications Generic Name Dose Route Start Last Admin Trade Name Freq PRN Reason Stop Dose Admin Atorvastatin Calcium 20 mg 04/25/19 22:00 04/29/19 21:17 Lipitor - PO 20 mg HS PAUL Administration Bisacodyl 10 mg 04/27/19 14:33 Dulcolax Suppository - [place] PRN PRN CONSTIPATION [place] Butter/Phenylephrine 1 each 04/25/19 10:00 04/30/19 10:23 Preparation H Suppository RC 1 each BID PAUL Administration Docusate Sodium 100 mg 04/26/19 14:00 04/30/19 15:05 Colace - PO 100 mg TID PAUL Administration Enoxaparin Sodium 60 mg 04/29/19 13:45 04/30/19 13:05 Lovenox - SQ 60 mg Q12H PAUL Administration Gabapentin 300 mg 04/25/19 14:00 04/30/19 15:05 Neurontin - PO 300 mg TID PAUL Administration Hydrocortisone 1 applic 04/25/19 22:15 04/29/19 21:29 Anusol 2.5% Hc Cream - TP 1 applic ONCE PAUL Administration Lidocaine 2 patch 04/27/19 12:52 04/30/19 10:22 Lidoderm Patch - TP 2 patch DAILY PAUL Administration Lisinopril 20 mg 04/25/19 10:00 04/30/19 10:22 Prinivil PO 20 mg DAILY PAUL Administration Metoprolol Tartrate 50 mg 04/25/19 10:00 04/30/19 10:22 Lopressor - PO 50 mg BID PAUL Administration Miscellaneous 1 each 04/26/19 22:00 04/29/19 21:30 Lidoderm Patch Removal MC 1 each DAILY@2200 PAUL Administration Miscellaneous 1 each 04/27/19 22:00 04/29/19 21:30 Lidoderm Patch Removal MC 1 each DAILY@2200 PAUL Administration Oxycodone HCl 10 mg 04/27/19 13:00 04/30/19 10:24 Oxycontin - PO 10 mg BID PAUL Administration Oxycodone HCl 5 mg 04/28/19 08:21 04/30/19 15:06 Roxicodone - PO 5 mg Q4H PRN Administration PAIN LEVEL 6-10 Polyethylene Glycol 17 gm 04/28/19 10:00 04/30/19 10:24 Miralax (For Daily Use) - PO 17 grams BID PAUL Administration Senna 2 tab 04/28/19 22:00 04/29/19 21:16 Senna - PO 2 tab HS PAUL Administration Tamsulosin HCl 0.8 mg 04/28/19 08:30 04/30/19 10:21 Flomax - PO 0.8 mg DAILY@0830 PAUL Administration Tizanidine HCl 2 mg 04/25/19 14:00 04/30/19 05:59 Tizanidine Hcl PO 2 mg TID PAUL Administration Vital Signs Period Temp Pulse Resp BP Sys/López Pulse Ox Last 24 Hr 98.1 F-98.5 F 77-81 18-75 114-119/42-54 97 nad no jvd rrr s1s2 no mrg cta bl nl eff aao3 no le e/c/c abd nt nd pos bs no jaundice diaphoresis CBC, BMP 04/29/19 11:48 04/30/19 07:50 ecg: sr nl intervals no ischemic changes cxr: clear lungs a/p: 78 m hx htn, hld, cad s/p remote pci, tavr 02/2018, here with low back pain. back pain: -neuro, pain management eval htn: -cont raeann, bb hld: -cont statin cad, remote pci: -stable no angina no signs acs -cont bb, raeann, asa, statin, plavix - last PCI 2009, >1 year since TAVR, if intervention needed would be able to hold plavix for 5 days prior to procedure as s/p tavr: -stable, no signs chf -remains on dapt
[2019-04-30] MEDS: ATORVASTATIN CA 20 MG TABLET (FP) PO SCH (22:13)
[2019-04-30] MEDS: SENNOSIDES 8.6MG TABLET (FP) PO SCH (22:14)
[2019-04-30] MEDS: LIDOCAINE PATCH REMOVAL MC SCH ×2 (22:14)
[2019-04-30] MEDS: HYDROCORTISONE 2.5% TOPICAL CREAM 30 GM TUBE TP SCH (22:15)
[2019-05-01] MEDS: ENOXAPARIN NA (PORCINE) 60 MG/0.6 ML DISP.SYRIN SQ SCH ×2 (02:06→14:48)
[2019-05-01] MEDS: GABAPENTIN 300 MG CAPSULE (FP) PO SCH ×3 (07:04→22:33)
[2019-05-01] MEDS: DOCUSATE SODIUM 100 MG CAPSULE (FP) PO SCH ×3 (07:04→22:31)
[2019-05-01] MEDS: TIZANIDINE HCL 2 MG TABLET PO SCH ×3 (07:05→22:37)
[2019-05-01 07:39] LABS: BLOOD UREA NITROGEN 33.6 mg/dL (7-18); CREATININE 1.2 mg/dL (0.55-1.3)
--- NOTE | 2019-05-01 08:28 | PN ---
Progress Note (short form) - Note Progress Note: C/o back pain, RLE pain. Vital Signs Temp 98.1 F 05/01/19 06:24 Pulse 68 05/01/19 06:24 Resp 19 05/01/19 06:24 BP 124/64 05/01/19 06:24 Pulse Ox 97 04/30/19 09:00 Intake & Output 04/30/19 04/30/19 05/01/19 11:59 23:59 11:59 Intake Total 220 1130 Output Total 1200 500 Balance -980 630 Intake: Oral 220 1130 Output: Urine 1200 500 [place] 100 Void 1200 400 Other: Voiding Method Urinal Urinal # Unmeasured Voids Void 2 Bowel Movement Yes # Bowel Movements 1 Neck supple, no JVD Lungs are Clear Heart S1S2 regular , KENY LSB Abdomen soft, NT Ext RLE paresthesias. Laboratory Results - last 24 hr 04/30/19 05/01/19 07:50 06:33 Sodium 134 L 137 Potassium 5.0 5.0 Chloride 101 104 Carbon Dioxide 27 28 Anion Gap 6 L 6 L BUN 29.1 H 33.6 H Creatinine 1.3 1.2 Est GFR (CKD-EPI)AfAm 61.00 67.20 Est GFR (CKD-EPI)NonAf 52.63 57.98 Random Glucose 90 81 Calcium 9.2 9.0 Current Active Problems Problem Status Onset Back pain Acute CAD (coronary artery disease) Acute DVT prophylaxis Acute Diabetes 1.5, managed as type 2 Acute HTN (hypertension) Acute Hemorrhoids that prolapse with straining and require manual replacement back inside anal canal Acute Intractable back pain Acute Osteoarthritis Acute Prophylactic measure Acute Residual hemorrhoidal skin tags Acute Urinary retention Acute Plan OFF ASA/Plavix, continue Lovenox Pain [id number] PT Surgical f/u re Right LS radiculopathy Disc herniation. Problem List - Problems (1) CAD (coronary artery disease) Code(s): I25.10 - ATHSCL HEART DISEASE OF [place] CORONARY ARTERY W/O ANG PCTRS Qualifiers: Coronary Disease-Associated Artery/Lesion type: [place] artery [place] vs. transplanted heart: [place] heart Associated angina: without angina Qualified Code(s): I25.10 - Atherosclerotic heart disease of [place] coronary artery without angina pectoris (2) Intractable back pain Code(s): M54.9 - DORSALGIA, UNSPECIFIED (3) Diabetes 1.5, managed as type 2 Code(s): E13.9 - OTHER SPECIFIED DIABETES MELLITUS WITHOUT COMPLICATIONS (4) HTN (hypertension) Code(s): I10 - ESSENTIAL (PRIMARY) HYPERTENSION Qualifiers: Hypertension type: essential hypertension Qualified Code(s): I10 - Essential (primary) hypertension
[2019-05-01] MEDS ORDERED: PT OWN MED DRAWER 7, Y5N ONE (09:45)
[2019-05-01] MEDS: TAMSULOSIN HCL 0.4 MG CAP PO SCH (09:52)
[2019-05-01] MEDS: oxyCODONE HCL 10 MG SUSTAINED ACTING TABLET PO SCH ×2 (09:52→22:31)
[2019-05-01] MEDS: LISINOPRIL 20 MG TABLET (FP) PO SCH (09:52)
[2019-05-01] MEDS: METOPROLOL TARTRATE 50 MG TABLET (FP) PO SCH ×2 (09:52→22:33)
[2019-05-01] MEDS: LIDOCAINE 5% TOPICAL PATCH TP SCH (09:53)
[2019-05-01] MEDS: POLYETHYLENE GLYCOL 3350 119 GM BTL PO SCH ×2 (09:54→22:34)
[2019-05-01] MEDS: PHENYLEPHRINE HCL/COCOA BUTTER SUPPOSITORY RC SCH ×2 (09:55→22:37)
--- NOTE | 2019-05-01 12:57 | PN ---
Progress Note (short form) - Note Progress Note: s: no chest pain, palps, dizziness, dyspnea Current Medications Generic Name Dose Route Start Last Admin Trade Name Freq PRN Reason Stop Dose Admin Atorvastatin Calcium 20 mg 04/25/19 22:00 04/30/19 22:13 Lipitor - PO 20 mg HS PAUL Administration Bisacodyl 10 mg 04/27/19 14:33 Dulcolax Suppository - [place] PRN PRN CONSTIPATION [place] Butter/Phenylephrine 1 each 04/25/19 10:00 05/01/19 09:55 Preparation H Suppository RC 1 each BID PAUL Administration Docusate Sodium 100 mg 04/26/19 14:00 05/01/19 07:04 Colace - PO 100 mg TID PAUL Administration Enoxaparin Sodium 60 mg 04/29/19 13:45 05/01/19 02:06 Lovenox - SQ 60 mg Q12H PAUL Administration Gabapentin 300 mg 04/25/19 14:00 05/01/19 07:04 Neurontin - PO 300 mg TID PAUL Administration Hydrocortisone 1 applic 04/25/19 22:15 04/30/19 22:15 Anusol 2.5% Hc Cream - TP 1 applic ONCE PAUL Administration Lidocaine 2 patch 04/27/19 12:52 05/01/19 09:53 Lidoderm Patch - TP 2 patch DAILY PAUL Administration Lisinopril 20 mg 04/25/19 10:00 05/01/19 09:52 Prinivil PO 20 mg DAILY PAUL Administration Metoprolol Tartrate 50 mg 04/25/19 10:00 05/01/19 09:52 Lopressor - PO 50 mg BID PAUL Administration Miscellaneous 1 each 04/26/19 22:00 04/30/19 22:14 Lidoderm Patch Removal MC 1 each DAILY@2200 PAUL Administration Miscellaneous 1 each 04/27/19 22:00 04/30/19 22:14 Lidoderm Patch Removal MC 1 each DAILY@2200 PAUL Administration Oxycodone HCl 10 mg 04/27/19 13:00 05/01/19 09:52 Oxycontin - PO 10 mg BID PAUL Administration Oxycodone HCl 5 mg 04/28/19 08:21 04/30/19 15:06 Roxicodone - PO 5 mg Q4H PRN Administration PAIN LEVEL 6-10 Polyethylene Glycol 17 gm 04/28/19 10:00 05/01/19 09:54 Miralax (For Daily Use) - PO 17 grams BID PAUL Administration Senna 2 tab 04/28/19 22:00 04/30/19 22:14 Senna - PO 2 tab HS PAUL Administration Tamsulosin HCl 0.8 mg 04/28/19 08:30 05/01/19 09:52 Flomax - PO 0.8 mg DAILY@0830 PAUL Administration Tizanidine HCl 2 mg 04/25/19 14:00 05/01/19 07:05 Tizanidine Hcl PO Not Given TID PAUL CBC, BMP 04/29/19 11:48 05/01/19 06:33 Vital Signs Period Temp Pulse Resp BP Sys/López Pulse Ox Last 24 Hr 98.1 F-98.5 F 68-89 19-20 96-140/47-64 99 nad no jvd rrr s1s2 no mrg cta bl nl eff aao3 no le e/c/c abd nt nd pos bs no jaundice diaphoresis ecg: sr nl intervals no ischemic changes cxr: clear lungs a/p: 78 m hx htn, hld, cad s/p remote pci, tavr 02/2018, here with low back pain. back pain: -neuro, pain management eval htn: -cont raeann, bb hld: -cont statin cad, remote pci: -stable no angina no signs acs -cont bb, raeann, asa, statin, plavix - last PCI 2009, >1 year since TAVR, if intervention needed would be able to hold plavix for 5 days prior to procedure as s/p tavr: -stable, no signs chf -remains on dapt
[2019-05-01] MEDS: oxyCODONE HCL 5 MG TABLET PO PRN (14:50)
[2019-05-01] MEDS: SENNOSIDES 8.6MG TABLET (FP) PO SCH (22:33)
[2019-05-01] MEDS: ATORVASTATIN CA 20 MG TABLET (FP) PO SCH (22:33)
[2019-05-01] MEDS: LIDOCAINE PATCH REMOVAL MC SCH ×2 (22:38)
[2019-05-01] MEDS: HYDROCORTISONE 2.5% TOPICAL CREAM 30 GM TUBE TP SCH (22:41)
[2019-05-02] MEDS: oxyCODONE HCL 5 MG TABLET PO PRN (00:22)
[2019-05-02] MEDS: ENOXAPARIN NA (PORCINE) 60 MG/0.6 ML DISP.SYRIN SQ SCH ×2 (01:50→14:24)
[2019-05-02] MEDS ORDERED: PT OWN MED DRAWER 7, Y5N ONE ×2 (05:04→09:36)
[2019-05-02] MEDS: GABAPENTIN 300 MG CAPSULE (FP) PO SCH ×3 (05:06→21:07)
[2019-05-02] MEDS: DOCUSATE SODIUM 100 MG CAPSULE (FP) PO SCH ×3 (05:07→21:07)
[2019-05-02] MEDS: TIZANIDINE HCL 2 MG TABLET PO SCH ×3 (05:07→21:09)
--- NOTE | 2019-05-02 09:51 | PN ---
Progress Note (short form) - Note Progress Note: C/o severe RLE pain, especially when OOB and attempts to ambulate with PT. OFF Plavix/ASA Vital Signs (72 hours) 04/29/19 04/29/19 04/29/19 15:00 18:00 22:00 Temperature 98.4 F 98.1 F Pulse Rate 71 77 Respiratory 18 75 H 18 Rate Blood Pressure 113/57 L 116/42 L O2 Sat by Pulse 97 Oximetry (%) 04/30/19 04/30/19 04/30/19 05:55 09:00 14:34 Temperature 98.4 F 98.5 F Pulse Rate 81 77 Respiratory 20 17 20 Rate Blood Pressure 119/54 L 114/47 L O2 Sat by Pulse 97 Oximetry (%) 04/30/19 04/30/19 05/01/19 18:00 20:12 06:24 Temperature 98.4 F 98.3 F 98.1 F Pulse Rate 78 75 68 Respiratory 20 19 Rate Blood Pressure 107/51 L 96/47 L 124/64 O2 Sat by Pulse Oximetry (%) 05/01/19 05/01/19 05/01/19 09:20 14:47 19:14 Temperature 98.1 F 98.3 F 98.5 F Pulse Rate 89 91 H 89 Respiratory 19 19 20 Rate Blood Pressure 140/63 123/53 L 113/55 L O2 Sat by Pulse 99 Oximetry (%) 05/01/19 05/02/19 21:00 05:55 Temperature 98.5 F Pulse Rate 72 Respiratory 20 20 Rate Blood Pressure 111/47 L O2 Sat by Pulse 99 Oximetry (%) Awake, alert, Moderate distress when OOB, Lungs are clear Heart S1s2 regular Abdomen soft, NT RLE bent while in bed to decrease pain. RLE weakness, DTR decreased. Current Active Problems Problem Status Onset Back pain Acute CAD (coronary artery disease) Acute DVT prophylaxis Acute Diabetes 1.5, managed as type 2 Acute HTN (hypertension) Acute Hemorrhoids that prolapse with straining and require manual replacement back inside anal canal Acute Intractable back pain Acute Osteoarthritis Acute Prophylactic measure Acute Residual hemorrhoidal skin tags Acute Urinary retention Acute Laboratory Results - last 24 hr 05/01/19 05/02/19 11:42 06:52 POC Glucometer 103 78 Plan Pain management PT D/C BGM Lovenox Problem List - Problems (1) CAD (coronary artery disease) Code(s): I25.10 - ATHSCL HEART DISEASE OF [place] CORONARY ARTERY W/O ANG PCTRS Qualifiers: Coronary Disease-Associated Artery/Lesion type: [place] artery [place] vs. transplanted heart: [place] heart Associated angina: without angina Qualified Code(s): I25.10 - Atherosclerotic heart disease of [place] coronary artery without angina pectoris (2) Intractable back pain Code(s): M54.9 - DORSALGIA, UNSPECIFIED (3) Diabetes 1.5, managed as type 2 Code(s): E13.9 - OTHER SPECIFIED DIABETES MELLITUS WITHOUT COMPLICATIONS (4) HTN (hypertension) Code(s): I10 - ESSENTIAL (PRIMARY) HYPERTENSION Qualifiers: Hypertension type: essential hypertension Qualified Code(s): I10 - Essential (primary) hypertension
[2019-05-02] MEDS: PHENYLEPHRINE HCL/COCOA BUTTER SUPPOSITORY RC SCH ×2 (10:02→21:10)
[2019-05-02] MEDS: METOPROLOL TARTRATE 50 MG TABLET (FP) PO SCH ×2 (10:02→21:08)
[2019-05-02] MEDS: oxyCODONE HCL 10 MG SUSTAINED ACTING TABLET PO SCH ×2 (10:02→21:07)
[2019-05-02] MEDS: LISINOPRIL 20 MG TABLET (FP) PO SCH (10:02)
[2019-05-02] MEDS: TAMSULOSIN HCL 0.4 MG CAP PO SCH (10:02)
[2019-05-02] MEDS: POLYETHYLENE GLYCOL 3350 119 GM BTL PO SCH ×2 (10:03→21:08)
[2019-05-02] MEDS: LIDOCAINE 5% TOPICAL PATCH TP SCH (10:03)
--- NOTE | 2019-05-02 11:09 | PN ---
Progress Note, Physician Chief Complaint: no sob, cp, palps - Current Medication List Current Medications: Active Medications Atorvastatin Calcium (Lipitor -) 20 mg PO [facility] Last Admin: 05/01/19 22:33 Dose: 20 mg Bisacodyl (Dulcolax Suppository -) 10 mg [place] PRN PRN PRN Reason: CONSTIPATION [place] Butter/Phenylephrine (Preparation H Suppository) 1 each RC BID [facility] Last Admin: 05/02/19 10:02 Dose: 1 each Docusate Sodium (Colace -) 100 mg PO TID [facility] Last Admin: 05/02/19 05:07 Dose: 100 mg Enoxaparin Sodium (Lovenox -) 60 mg SQ Q12H [facility] Last Admin: 05/02/19 01:50 Dose: 60 mg Gabapentin (Neurontin -) 300 mg PO TID [facility] Last Admin: 05/02/19 05:06 Dose: 300 mg Hydrocortisone (Anusol 2.5% Hc Cream -) 1 applic TP ONCE [facility] Last Admin: 05/01/19 22:41 Dose: 1 applic Lidocaine (Lidoderm Patch -) 2 patch TP DAILY [facility] Last Admin: 05/02/19 10:03 Dose: 2 patch Lisinopril (Prinivil) 20 mg PO DAILY [facility] Last Admin: 05/02/19 10:02 Dose: 20 mg Metoprolol Tartrate (Lopressor -) 50 mg PO BID [facility] Last Admin: 05/02/19 10:02 Dose: 50 mg Miscellaneous (Lidoderm Patch Removal) 1 each MC DAILY@2200 [facility] Last Admin: 05/01/19 22:38 Dose: 1 each Miscellaneous (Lidoderm Patch Removal) 1 each MC DAILY@2200 [facility] Last Admin: 05/01/19 22:38 Dose: 1 each Oxycodone HCl (Oxycontin -) 10 mg PO BID [facility] Last Admin: 05/02/19 10:02 Dose: 10 mg Oxycodone HCl (Roxicodone -) 5 mg PO Q4H PRN PRN Reason: PAIN LEVEL 6-10 Last Admin: 05/02/19 00:22 Dose: 5 mg Polyethylene Glycol (Miralax (For Daily Use) -) 17 gm PO BID [facility] Last Admin: 05/02/19 10:03 Dose: 17 grams Senna (Senna -) 2 tab PO [facility] Last Admin: 05/01/19 22:33 Dose: 2 tab Tamsulosin HCl (Flomax -) 0.8 mg PO DAILY@0830 [facility] Last Admin: 05/02/19 10:02 Dose: 0.8 mg Tizanidine HCl (Tizanidine Hcl) 2 mg PO TID [facility] Last Admin: 05/02/19 05:07 Dose: 2 mg - Objective Vital Signs: Vital Signs Temperature 98.0 F 05/02/19 09:30 Pulse Rate 71 05/02/19 09:30 Respiratory Rate 18 05/02/19 09:30 Blood Pressure 112/55 L 05/02/19 09:30 O2 Sat by Pulse Oximetry (%) 99 05/01/19 21:00 Constitutional: Yes: No Distress, Calm Eyes: Yes: Conjunctiva Clear Cardiovascular: Yes: Regular Rate and Rhythm Respiratory: Yes: CTA Bilaterally Gastrointestinal: Yes: Normal Bowel Sounds, Soft Edema: No Peripheral Pulses WNL: Yes Neurological: Yes: Alert, Oriented ...Motor Strength: WNL Labs: CBC, BMP 04/29/19 11:48 05/01/19 06:33 Assessment/Plan a/p: 78 m hx htn, hld, cad s/p remote pci, tavr 02/2018, here with low back pain. back pain: -neuro, pain management eval. D/W Dr. Jones. No hx of AF. Thus, does not require full dose Lovenox,can be decreased to prophylactic dose. htn: -cont raeann, bb hld: -cont statin cad, remote pci: -stable no angina no signs acs -cont bb, statin - last PCI 2009, >1 year since TAVR; d/w Dr. Jones N-surgery has requested ASA and Plavix be held until Sunday for possible intervention and it is felt that continuation of even low dose ASA poses a significant risk of bleed /spinal hematoma. Given the nature of the procedure and the possible risks of spinal bleed, the risk/benefit ratio favors holding these agents with overall low risk of cardiac event. as s/p tavr: -stable, no signs chf
[2019-05-02] MEDS: SENNOSIDES 8.6MG TABLET (FP) PO SCH (21:06)
[2019-05-02] MEDS: ATORVASTATIN CA 20 MG TABLET (FP) PO SCH (21:07)
[2019-05-02] MEDS: LIDOCAINE PATCH REMOVAL MC SCH ×2 (21:11)
[2019-05-02] MEDS: HYDROCORTISONE 2.5% TOPICAL CREAM 30 GM TUBE TP SCH (23:13)
[2019-05-03] MEDS: oxyCODONE HCL 5 MG TABLET PO PRN (00:35)
[2019-05-03] MEDS: TIZANIDINE HCL 2 MG TABLET PO SCH ×3 (06:23→21:11)
[2019-05-03] MEDS: DOCUSATE SODIUM 100 MG CAPSULE (FP) PO SCH ×3 (06:23→21:09)
[2019-05-03] MEDS: GABAPENTIN 300 MG CAPSULE (FP) PO SCH ×3 (06:23→21:10)
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
[2019-05-03 08:49] LABS: BLOOD UREA NITROGEN 38.4 mg/dL (7-18); CALCIUM 9.7 mg/dL (8.5-10.1); CREATININE 1.2 mg/dL (0.55-1.3); POTASSIUM 5.4 mmol/L (3.5-5.1)
[2019-05-03] MEDS ORDERED: PT OWN MED DRAWER 7, Y5N ONE (08:58)
[2019-05-03] MEDS: METOPROLOL TARTRATE 50 MG TABLET (FP) PO SCH ×2 (09:04→21:14)
[2019-05-03] MEDS: LISINOPRIL 20 MG TABLET (FP) PO SCH (09:05)
[2019-05-03] MEDS: oxyCODONE HCL 10 MG SUSTAINED ACTING TABLET PO SCH ×2 (09:06→21:09)
[2019-05-03] MEDS: TAMSULOSIN HCL 0.4 MG CAP PO SCH (09:06)
[2019-05-03] MEDS: PHENYLEPHRINE HCL/COCOA BUTTER SUPPOSITORY RC SCH ×2 (09:07→21:12)
[2019-05-03] MEDS: ENOXAPARIN NA (PORCINE) 40 MG/0.4 ML DISP.SYRIN SQ SCH (09:07)
[2019-05-03] MEDS: LIDOCAINE 5% TOPICAL PATCH TP SCH (09:07)
[2019-05-03] MEDS: POLYETHYLENE GLYCOL 3350 119 GM BTL PO SCH ×2 (09:10→21:13)
--- NOTE | 2019-05-03 11:33 | PN ---
Progress Note (short form) - Note Progress Note: s: no chest pain, palps, dizziness, dyspnea Current Medications Generic Name Dose Route Start Last Admin Trade Name Freq PRN Reason Stop Dose Admin Atorvastatin Calcium 20 mg 04/25/19 22:00 05/02/19 21:07 Lipitor - PO 20 mg HS PAUL Administration Bisacodyl 10 mg 04/27/19 14:33 Dulcolax Suppository - [place] PRN PRN CONSTIPATION [employer] Butter/Phenylephrine 1 each 04/25/19 10:00 05/03/19 09:07 Preparation H Suppository RC 1 each BID PAUL Administration Docusate Sodium 100 mg 04/26/19 14:00 05/03/19 06:23 Colace - PO 100 mg TID PAUL Administration Enoxaparin Sodium 40 mg 05/03/19 10:00 05/03/19 09:07 Lovenox - SQ 40 mg DAILY PAUL Administration Gabapentin 300 mg 04/25/19 14:00 05/03/19 06:23 Neurontin - PO 300 mg TID PAUL Administration Hydrocortisone 1 applic 04/25/19 22:15 05/02/19 23:13 Anusol 2.5% Hc Cream - TP 1 applic ONCE PAUL Administration Lidocaine 2 patch 04/27/19 12:52 05/03/19 09:07 Lidoderm Patch - TP 2 patch DAILY PAUL Administration Lisinopril 20 mg 04/25/19 10:00 05/03/19 09:05 Prinivil PO Not Given DAILY PAUL Metoprolol Tartrate 50 mg 04/25/19 10:00 05/03/19 09:04 Lopressor - PO Not Given BID PAUL Miscellaneous 1 each 04/26/19 22:00 05/02/19 21:11 Lidoderm Patch Removal MC 1 each DAILY@2200 PAUL Administration Miscellaneous 1 each 04/27/19 22:00 05/02/19 21:11 Lidoderm Patch Removal MC 1 each DAILY@2200 PAUL Administration Oxycodone HCl 10 mg 04/27/19 13:00 05/03/19 09:06 Oxycontin - PO 10 mg BID PAUL Administration Oxycodone HCl 5 mg 04/28/19 08:21 05/03/19 00:35 Roxicodone - PO 5 mg Q4H PRN Administration PAIN LEVEL 6-10 Polyethylene Glycol 17 gm 04/28/19 10:00 05/03/19 09:10 Miralax (For Daily Use) - PO 17 grams BID PAUL Administration Senna 2 tab 04/28/19 22:00 05/02/19 21:06 Senna - PO 2 tab HS PAUL Administration Tamsulosin HCl 0.8 mg 04/28/19 08:30 05/03/19 09:06 Flomax - PO 0.8 mg DAILY@0830 PAUL Administration Tizanidine HCl 2 mg 04/25/19 14:00 05/03/19 06:23 Tizanidine Hcl PO 2 mg TID PAUL Administration Vital Signs Period Temp Pulse Resp BP Sys/López Pulse Ox Last 24 Hr 97.8 F-98.4 F 66-73 19-20 91-131/44-59 95-100 nad no jvd rrr s1s2 no mrg cta bl nl eff aao3 no le e/c/c abd nt nd pos bs no jaundice diaphoresis CBC, BMP 04/29/19 11:48 05/03/19 07:30 ecg: sr nl intervals no ischemic changes cxr: clear lungs a/p: 78 m hx htn, hld, cad s/p remote pci, tavr 02/2018, here with low back pain. back pain: -neuro, pain management eval htn: -cont raeann, bb hld: -cont statin cad, remote pci: -stable no angina no signs acs -cont bb, raeann, asa, statin, plavix - last PCI 2009, >1 year since TAVR, if intervention needed can hold asa/plavix temporarily as s/p tavr: -stable, no signs chf -remains on dapt
[2019-05-03 11:46] LABS: MAGNESIUM 2.4 mg/dL (1.8-2.4)
[2019-05-03] MEDS: ATORVASTATIN CA 20 MG TABLET (FP) PO SCH (21:09)
[2019-05-03] MEDS: SENNOSIDES 8.6MG TABLET (FP) PO SCH (21:10)
[2019-05-03] MEDS: LIDOCAINE PATCH REMOVAL MC SCH ×2 (21:14→21:15)
[2019-05-03] MEDS: HYDROCORTISONE 2.5% TOPICAL CREAM 30 GM TUBE TP SCH (21:16)
[2019-05-04] MEDS: DOCUSATE SODIUM 100 MG CAPSULE (FP) PO SCH ×3 (05:22→21:28)
[2019-05-04] MEDS: GABAPENTIN 300 MG CAPSULE (FP) PO SCH ×3 (05:22→21:29)
[2019-05-04] MEDS: TIZANIDINE HCL 2 MG TABLET PO SCH ×3 (05:22→21:30)
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
[2019-05-04 08:19] LABS: BASO % 0.5 % (0-2.0); EOS % 2.6 % (0-4.5); HEMOGLOBIN 11.2 GM/dL (11.7-16.9); LYMPH % 17.2 % (8-40); MCH 30.7 pg (25.7-33.7); MEAN CELL VOLUME 90.4 fl (80-96); MEAN PLT VOLUME 9.1 fl (7.5-11.1); MONO % 11.7 % (3.8-10.2); PLATELET COUNT 188 K/MM3 (134-434); RBC 3.64 M/mm3 (4.00-5.60); RDW 14.3 % (11.9-15.9)
[2019-05-04] MEDS: TAMSULOSIN HCL 0.4 MG CAP PO SCH (08:30)
[2019-05-04 08:35] LABS: ALBUMIN 3.4 g/dl (3.4-5.0); BILIRUBIN,TOTAL 0.3 mg/dL (0.2-1); BLOOD UREA NITROGEN 36.5 mg/dL (7-18); CALCIUM 9.4 mg/dL (8.5-10.1); CREATININE 1.2 mg/dL (0.55-1.3); POTASSIUM 5.1 mmol/L (3.5-5.1)
[2019-05-04] MEDS ORDERED: PT OWN MED DRAWER 7, Y5N ONE (09:46)
[2019-05-04] MEDS: oxyCODONE HCL 10 MG SUSTAINED ACTING TABLET PO SCH (09:58)
[2019-05-04] MEDS: LISINOPRIL 20 MG TABLET (FP) PO SCH (09:58)
[2019-05-04] MEDS: ENOXAPARIN NA (PORCINE) 40 MG/0.4 ML DISP.SYRIN SQ SCH (09:58)
[2019-05-04] MEDS: METOPROLOL TARTRATE 50 MG TABLET (FP) PO SCH ×2 (09:58→21:29)
[2019-05-04] MEDS: PHENYLEPHRINE HCL/COCOA BUTTER SUPPOSITORY RC SCH ×2 (10:00→21:29)
[2019-05-04] MEDS: POLYETHYLENE GLYCOL 3350 119 GM BTL PO SCH ×2 (10:01→21:29)
[2019-05-04] MEDS: LIDOCAINE 5% TOPICAL PATCH TP SCH (10:01)
--- NOTE | 2019-05-04 11:26 | PN ---
Progress Note (short form) - Note Progress Note: s: no chest pain, palps, dizziness, dyspnea Vital Signs Period Temp Pulse Resp BP Sys/López Pulse Ox Last 24 Hr 98.2 F-98.7 F 68-81 20-20 108-152/46-58 96 nad no jvd rrr s1s2 no mrg cta bl nl eff aao3 no le e/c/c abd nt nd pos bs no jaundice diaphoresis CBC, BMP 05/04/19 07:08 05/04/19 07:08 ecg: sr nl intervals no ischemic changes cxr: clear lungs a/p: 78 m hx htn, hld, cad s/p remote pci, tavr 02/2018, here with low back pain. back pain: -neuro, pain management eval htn: -cont raeann, bb hld: -cont statin cad, remote pci: -stable no angina no signs acs -cont bb, raeann, asa, statin, plavix - last PCI 2009, >1 year since TAVR, if intervention needed can hold asa/plavix temporarily as s/p tavr: -stable, no signs chf -remains on dapt
[2019-05-04] MEDS: oxyCODONE HCL 5 MG TABLET PO PRN (19:32)
[2019-05-04] MEDS: LIDOCAINE PATCH REMOVAL MC SCH ×2 (21:29)
[2019-05-04] MEDS: SENNOSIDES 8.6MG TABLET (FP) PO SCH (21:29)
[2019-05-04] MEDS: ATORVASTATIN CA 20 MG TABLET (FP) PO SCH (21:29)
[2019-05-04] MEDS: HYDROCORTISONE 2.5% TOPICAL CREAM 30 GM TUBE TP SCH (21:30)
[2019-05-05] MEDS: oxyCODONE HCL 5 MG TABLET PO PRN ×3 (00:40→16:24)
[2019-05-05] MEDS: DOCUSATE SODIUM 100 MG CAPSULE (FP) PO SCH ×4 (06:12→21:56)
[2019-05-05] MEDS: GABAPENTIN 300 MG CAPSULE (FP) PO SCH ×3 (06:12→21:40)
[2019-05-05] MEDS: TIZANIDINE HCL 2 MG TABLET PO SCH ×3 (06:12→21:47)
[2019-05-05] MEDS: TAMSULOSIN HCL 0.4 MG CAP PO SCH (08:04)
[2019-05-05] MEDS ORDERED: SODIUM POLYSTYRENE SULFONATE 15 GM/60 ML BOTTLE PO ONE (08:09)
--- NOTE | 2019-05-05 08:14 | PN ---
Progress Note (short form) - Note Progress Note: C/o significant RLE pain, less low back pain Pain is worse when ambulating. Vital Signs Temp 98.4 F 05/05/19 05:45 Pulse 65 05/05/19 05:45 Resp 20 05/05/19 05:45 BP 115/45 L 05/05/19 05:45 Pulse Ox 98 05/04/19 21:00 Intake & Output 05/04/19 05/04/19 05/05/19 11:59 23:59 11:59 Intake Total 400 Output Total 800 1500 750 Balance -800 -1100 -750 Intake: Oral 400 Output: Urine 800 1500 750 Void 800 1500 750 Other: Voiding Method Toilet Toilet Bowel Movement No No No Awake, alert NO SOB, no CP, no palpitations or dizziness. Lungs are clear Heart S1S2 regular Abdomen soft , NT Ext RLE pain, alleviated by bending Right knee while in bed. Laboratory Results - last 24 hr 05/04/19 05/04/19 07:08 07:08 WBC 5.0 RBC 3.64 L Hgb 11.2 L Hct 33.0 L MCV 90.4 MCH 30.7 MCHC 34.0 RDW 14.3 Plt Count 188 MPV 9.1 Absolute Neuts (auto) 3.4 Neutrophils % 68.0 Lymphocytes % 17.2 D Monocytes % 11.7 H D Eosinophils % 2.6 Basophils % 0.5 Nucleated RBC % 0 Sodium 137 Potassium 5.1 Chloride 104 Carbon Dioxide 26 Anion Gap 8 BUN 36.5 H Creatinine 1.2 Est GFR (CKD-EPI)AfAm 67.20 Est GFR (CKD-EPI)NonAf 57.98 Random Glucose 83 Calcium 9.4 Magnesium 2.0 Total Bilirubin 0.3 AST 56 H ALT 93 H Alkaline Phosphatase 65 Total Protein 7.0 Albumin 3.4 Current Active Problems Problem Status Onset Back pain Acute CAD (coronary artery disease) Acute DVT prophylaxis Acute Diabetes 1.5, managed as type 2 Acute HTN (hypertension) Acute Hemorrhoids that prolapse with straining and require manual replacement back inside anal canal Acute Intractable back pain Acute Osteoarthritis Acute Prophylactic measure Acute Prophylactic measure Acute Residual hemorrhoidal skin tags Acute S/P TAVR (transcatheter aortic valve replacement) Acute Urinary retention Acute Plan Neurosurgical follow up re procedure. Patient is off Plavix x5 days. Follow electrolytes, kidney function. PT for ambulation and strengthening. Problem List - Problems (1) CAD (coronary artery disease) Code(s): I25.10 - ATHSCL HEART DISEASE OF [place] CORONARY ARTERY W/O ANG PCTRS Qualifiers: Coronary Disease-Associated Artery/Lesion type: [place] artery [place] vs. transplanted heart: [place] heart Associated angina: without angina Qualified Code(s): I25.10 - Atherosclerotic heart disease of [place] coronary artery without angina pectoris (2) Intractable back pain Code(s): M54.9 - DORSALGIA, UNSPECIFIED (3) Diabetes 1.5, managed as type 2 Code(s): E13.9 - OTHER SPECIFIED DIABETES MELLITUS WITHOUT COMPLICATIONS (4) HTN (hypertension) Code(s): I10 - ESSENTIAL (PRIMARY) HYPERTENSION Qualifiers: Hypertension type: essential hypertension Qualified Code(s): I10 - Essential (primary) hypertension
[2019-05-05 08:46] LABS: BASO % 0.6 % (0-2.0); EOS % 2.1 % (0-4.5); HEMATOCRIT 32.8 % (35.4-49); LYMPH % 19.5 % (8-40); MCH 30.3 pg (25.7-33.7); MCHC 33.5 g/dl (32.0-35.9); MEAN CELL VOLUME 90.3 fl (80-96); MONO % 12.3 % (3.8-10.2); NEUT % 65.5 % (42.8-82.8); PLATELET COUNT 189 K/MM3 (134-434); RBC 3.64 M/mm3 (4.00-5.60); RDW 14.6 % (11.9-15.9); WHITE BLOOD COUNT 4.5 K/mm3 (4.0-10.0)
[2019-05-05 09:21] LABS: ALBUMIN 3.6 g/dl (3.4-5.0); BILIRUBIN,TOTAL 0.3 mg/dL (0.2-1); BLOOD UREA NITROGEN 40.5 mg/dL (7-18); CALCIUM 9.8 mg/dL (8.5-10.1); CREATININE 1.3 mg/dL (0.55-1.3); MAGNESIUM 2.2 mg/dL (1.8-2.4); POTASSIUM 4.9 mmol/L (3.5-5.1); TOT PROT 7.2 g/dl (6.4-8.2)
[2019-05-05] MEDS: ENOXAPARIN NA (PORCINE) 40 MG/0.4 ML DISP.SYRIN SQ SCH (10:06)
[2019-05-05] MEDS: METOPROLOL TARTRATE 50 MG TABLET (FP) PO SCH ×2 (10:06→21:40)
[2019-05-05] MEDS: LISINOPRIL 20 MG TABLET (FP) PO SCH (10:06)
[2019-05-05] MEDS: LIDOCAINE 5% TOPICAL PATCH TP SCH (10:06)
[2019-05-05] MEDS: POLYETHYLENE GLYCOL 3350 119 GM BTL PO SCH ×3 (10:11→21:58)
[2019-05-05] MEDS: PHENYLEPHRINE HCL/COCOA BUTTER SUPPOSITORY RC SCH ×2 (10:11→21:41)
--- NOTE | 2019-05-05 10:54 | PN ---
Progress Note (short form) - Note Progress Note: s: no chest pain, palps, dizziness, dyspnea Vital Signs Period Temp Pulse Resp BP Sys/López Pulse Ox Last 24 Hr 98.4 F 65 20 115/45 98 nad no jvd rrr s1s2 no mrg cta bl nl eff aao3 no le e/c/c abd nt nd pos bs no jaundice diaphoresis CBC, BMP 05/05/19 08:08 05/05/19 08:08 Current Medications Generic Name Dose Route Start Last Admin Trade Name Freq PRN Reason Stop Dose Admin Atorvastatin Calcium 20 mg 04/25/19 22:00 05/04/19 21:29 Lipitor - PO 20 mg HS PAUL Administration Bisacodyl 10 mg 04/27/19 14:33 Dulcolax Suppository - [place] PRN PRN CONSTIPATION [place] Butter/Phenylephrine 1 each 04/25/19 10:00 05/05/19 10:11 Preparation H Suppository RC 1 each BID PAUL Administration Docusate Sodium 100 mg 04/26/19 14:00 05/05/19 06:12 Colace - PO 100 mg TID PAUL Administration Enoxaparin Sodium 40 mg 05/03/19 10:00 05/05/19 10:06 Lovenox - SQ 40 mg DAILY PAUL Administration Gabapentin 300 mg 04/25/19 14:00 05/05/19 06:12 Neurontin - PO 300 mg TID PAUL Administration Hydrocortisone 1 applic 04/25/19 22:15 05/04/19 21:30 Anusol 2.5% Hc Cream - TP 1 applic ONCE PAUL Administration Lidocaine 2 patch 04/27/19 12:52 05/05/19 10:06 Lidoderm Patch - TP 2 patch DAILY PAUL Administration Lisinopril 20 mg 04/25/19 10:00 05/05/19 10:06 Prinivil PO 20 mg DAILY PAUL Administration Metoprolol Tartrate 50 mg 04/25/19 10:00 05/05/19 10:06 Lopressor - PO 50 mg BID PAUL Administration Miscellaneous 1 each 04/26/19 22:00 05/04/19 21:29 Lidoderm Patch Removal MC 1 each DAILY@2200 PAUL Administration Miscellaneous 1 each 04/27/19 22:00 05/04/19 21:29 Lidoderm Patch Removal MC 1 each DAILY@2200 PAUL Administration Oxycodone HCl 5 mg 04/28/19 08:21 05/05/19 04:49 Roxicodone - PO 5 mg Q4H PRN Administration PAIN LEVEL 6-10 Polyethylene Glycol 17 gm 04/28/19 10:00 05/05/19 10:11 Miralax (For Daily Use) - PO Not Given BID PAUL Senna 2 tab 04/28/19 22:00 05/04/19 21:29 Senna - PO 2 tab HS PAUL Administration Tamsulosin HCl 0.8 mg 04/28/19 08:30 05/05/19 08:04 Flomax - PO 0.8 mg DAILY@0830 PAUL Administration Tizanidine HCl 2 mg 04/25/19 14:00 05/05/19 06:12 Tizanidine Hcl PO 2 mg TID PAUL Administration ecg: sr nl intervals no ischemic changes cxr: clear lungs a/p: 78 m hx htn, hld, cad s/p remote pci, tavr 02/2018, here with low back pain. back pain: -neuro, pain management eval htn: -cont raeann, bb hld: -cont statin cad, remote pci: -stable no angina no signs acs -cont bb, raeann, asa, statin, plavix - last PCI 2009, >1 year since TAVR, if intervention needed can hold asa/plavix temporarily as s/p tavr: -stable, no signs chf -remains on dapt
--- NOTE | 2019-05-05 15:48 | SPA.PREOP ---
- PRE-OP NOTE Dx: Lumbar spondylosis and spinal cord neurofibroma Planned Procedure: L2-5 PLIF, spinal cord tumor resection Surgeon: Aureliano Porter MD Last Vital Signs Temp Pulse Resp BP Pulse Ox 97.6 F 99 H 20 134/50 L 98 05/05/19 13:49 05/05/19 13:49 05/05/19 13:49 05/05/19 13:49 05/05/19 09:00 Lab Results WBC 4.5 K/mm3 (4.0-10.0) 05/05/19 08:08 RBC 3.64 M/mm3 (4.00-5.60) L 05/05/19 08:08 Hgb 11.0 GM/dL (11.7-16.9) L 05/05/19 08:08 Hct 32.8 % (35.4-49) L 05/05/19 08:08 MCV 90.3 fl (80-96) 05/05/19 08:08 MCHC 33.5 g/dl (32.0-35.9) 05/05/19 08:08 RDW 14.6 % (11.9-15.9) 05/05/19 08:08 Plt Count 189 K/MM3 (134-434) 05/05/19 08:08 Sodium 138 mmol/L (136-145) 05/05/19 08:08 Potassium 4.9 mmol/L (3.5-5.1) 05/05/19 08:08 Chloride 103 mmol/L (98-107) 05/05/19 08:08 Carbon Dioxide 26 mmol/L (21-32) 05/05/19 08:08 Anion Gap 8 MMOL/L (8-16) 05/05/19 08:08 BUN 40.5 mg/dL (7-18) H 05/05/19 08:08 Creatinine 1.3 mg/dL (0.55-1.3) 05/05/19 08:08 Random Glucose 83 mg/dL (74-106) 05/05/19 08:08 Calcium 9.8 mg/dL (8.5-10.1) 05/05/19 08:08 - IMAGING MRI: Report Reviewed - ASSESSMENT/PLAN 1. Make NPO after midnight except po meds 2. GI/DVT PPX 3. Medical optimization / clearance 4. Consent to be obtained by surgeon after risks, benefits and alternatives discussed with patient and or Health Care Proxy.
[2019-05-05] MEDS ORDERED: PT OWN MED DRAWER 7, Y5N ONE (21:33)
[2019-05-05] MEDS: SENNOSIDES 8.6MG TABLET (FP) PO SCH ×2 (21:39→21:59)
[2019-05-05] MEDS: ATORVASTATIN CA 20 MG TABLET (FP) PO SCH (21:39)
[2019-05-05] MEDS: HYDROCORTISONE 2.5% TOPICAL CREAM 30 GM TUBE TP SCH (21:49)
[2019-05-05] MEDS: LIDOCAINE PATCH REMOVAL MC SCH ×2 (21:58)
--- NOTE | 2019-05-05 23:32 | PN ---
Progress Note (short form) - Note Progress Note: Patient seen and examined. Surgery risks benefits and alternatives again reviewed in detail. Preop for AM.
[2019-05-06] MEDS ORDERED: CHLORHEXIDINE GLUCONATE 4% CLEANSER FOR DECOLONIZATION TP ONE (05:47)
[2019-05-06] MEDS: DOCUSATE SODIUM 100 MG CAPSULE (FP) PO SCH ×2 (06:09→22:21)
[2019-05-06] MEDS: GABAPENTIN 300 MG CAPSULE (FP) PO SCH ×2 (06:09→22:23)
[2019-05-06] MEDS: TIZANIDINE HCL 2 MG TABLET PO SCH ×2 (06:10→22:23)
[2019-05-06 08:17] LABS: BASO % 0.5 % (0-2.0); EOS % 1.6 % (0-4.5); HEMOGLOBIN 11.2 GM/dL (11.7-16.9); LYMPH % 18.5 % (8-40); MCH 30.8 pg (25.7-33.7); MCHC 34.1 g/dl (32.0-35.9); MEAN CELL VOLUME 90.3 fl (80-96); MEAN PLT VOLUME 9.3 fl (7.5-11.1); MONO % 11.1 % (3.8-10.2); NEUT % 68.3 % (42.8-82.8); PLATELET COUNT 184 K/MM3 (134-434); RBC 3.65 M/mm3 (4.00-5.60); RDW 14.6 % (11.9-15.9); WHITE BLOOD COUNT 4.8 K/mm3 (4.0-10.0)
[2019-05-06 08:38] LABS: ALBUMIN 3.6 g/dl (3.4-5.0); BILIRUBIN,TOTAL 0.3 mg/dL (0.2-1); BLOOD UREA NITROGEN 38.2 mg/dL (7-18); CALCIUM 9.2 mg/dL (8.5-10.1); CREATININE 1.2 mg/dL (0.55-1.3); MAGNESIUM 2.2 mg/dL (1.8-2.4); POTASSIUM 4.6 mmol/L (3.5-5.1); TOT PROT 7.2 g/dl (6.4-8.2)
[2019-05-06] MEDS: TAMSULOSIN HCL 0.4 MG CAP PO SCH (10:18)
[2019-05-06] MEDS: LIDOCAINE 5% TOPICAL PATCH TP SCH (10:19)
[2019-05-06] MEDS: LISINOPRIL 20 MG TABLET (FP) PO SCH (10:19)
[2019-05-06] MEDS: POLYETHYLENE GLYCOL 3350 119 GM BTL PO SCH ×2 (10:19→22:22)
[2019-05-06] MEDS: PHENYLEPHRINE HCL/COCOA BUTTER SUPPOSITORY RC SCH ×2 (10:19→22:23)
[2019-05-06] MEDS: METOPROLOL TARTRATE 50 MG TABLET (FP) PO SCH ×2 (10:20→22:22)
--- NOTE | 2019-05-06 12:02 | PN ---
Progress Note (short form) - Note Progress Note: s: no chest pain, palps, dizziness, dyspnea Vital Signs Period Temp Pulse Resp BP Sys/López Pulse Ox Last 24 Hr 97.6 F-98.4 F 63-99 18-20 111-134/50-60 98 nad no jvd rrr s1s2 no mrg cta bl nl eff aao3 no le e/c/c abd nt nd pos bs no jaundice diaphoresis Current Medications Atorvastatin Calcium (Lipitor -) 20 mg PO HS [facility] Last Admin: 05/05/19 21:39 Dose: 20 mg Bisacodyl (Dulcolax Suppository -) 10 mg MT PRN PRN PRN Reason: CONSTIPATION [place] Butter/Phenylephrine (Preparation H Suppository) 1 each RC BID [facility] Last Admin: 05/06/19 10:19 Dose: Not Given Docusate Sodium (Colace -) 100 mg PO TID [facility] Last Admin: 05/06/19 06:09 Dose: Not Given Enoxaparin Sodium (Lovenox -) 40 mg SQ DAILY [facility] Last Admin: 05/05/19 10:06 Dose: 40 mg Gabapentin (Neurontin -) 300 mg PO TID [facility] Last Admin: 05/06/19 06:09 Dose: Not Given Hydrocortisone (Anusol 2.5% Hc Cream -) 1 applic TP ONCE [facility] Last Admin: 05/05/19 21:49 Dose: 1 applic Lidocaine (Lidoderm Patch -) 2 patch TP DAILY [facility] Last Admin: 05/06/19 10:19 Dose: Not Given Lisinopril (Prinivil) 20 mg PO DAILY [facility] Last Admin: 05/06/19 10:19 Dose: Not Given Metoprolol Tartrate (Lopressor -) 50 mg PO BID [facility] Last Admin: 05/06/19 10:20 Dose: 50 mg Miscellaneous (Lidoderm Patch Removal) 1 each MC DAILY@2200 [facility] Last Admin: 05/05/19 21:58 Dose: 1 each Miscellaneous (Lidoderm Patch Removal) 1 each MC DAILY@2200 [facility] Last Admin: 05/05/19 21:58 Dose: 1 each Oxycodone HCl (Roxicodone -) 5 mg PO Q4H PRN PRN Reason: PAIN LEVEL 6-10 Last Admin: 05/05/19 16:24 Dose: 5 mg Polyethylene Glycol (Miralax (For Daily Use) -) 17 gm PO BID [facility] Last Admin: 05/06/19 10:19 Dose: Not Given Senna (Senna -) 2 tab PO HS [facility] Last Admin: 05/05/19 21:59 Dose: Not Given Tamsulosin HCl (Flomax -) 0.8 mg PO DAILY@0830 [facility] Last Admin: 05/06/19 10:18 Dose: Not Given Tizanidine HCl (Tizanidine Hcl) 2 mg PO TID [facility] Last Admin: 05/06/19 06:10 Dose: Not Given ecg: sr nl intervals no ischemic changes cxr: clear lungs a/p: 78 m hx htn, hld, cad s/p remote pci, tavr 02/2018, here with low back pain. back pain, preop -neuro, pain management eval - has planned L2-5 PLIF, spinal cord tumor resection today - no cardiac contraindication to planned surgery, DAPT has been held. restart when feasible postop htn: -cont raeann, bb hld: -cont statin cad, remote pci: -stable no angina no signs acs -cont bb, raeann, asa, statin, plavix - last PCI 2009, >1 year since TAVR, holding asa/plavix temporarily as s/p tavr: -stable, no signs chf -holding DAPT as above for surgery, restart when able
--- NOTE | 2019-05-06 12:48 | PN ---
Progress Note (short form) - Note Progress Note: Discussed with neurosurgery surgery for today. patient is comfortable ib bed. Vital Signs Temp 97.9 F 05/06/19 10:00 Pulse 63 05/06/19 10:00 Resp 18 05/06/19 10:00 BP 123/60 05/06/19 10:00 Pulse Ox 98 05/05/19 21:00 Intake & Output 05/05/19 05/06/19 05/06/19 23:59 11:59 23:59 Intake Total 1000 0 Output Total 300 Balance 700 0 Intake: IV 0 saline lock 0 Oral 1000 0 Output: Urine 300 Void 300 Other: Voiding Method Toilet Toilet Bowel Movement No Lungs are Clear. Heart S1S2 regular. Abdomen soft, NT Ext no CCE Laboratory Results - last 24 hr 05/06/19 05/06/19 05/06/19 07:05 07:05 07:05 WBC 4.8 RBC 3.65 L Hgb 11.2 L Hct 33.0 L MCV 90.3 MCH 30.8 MCHC 34.1 RDW 14.6 Plt Count 184 MPV 9.3 Absolute Neuts (auto) 3.3 Neutrophils % 68.3 Lymphocytes % 18.5 Monocytes % 11.1 H Eosinophils % 1.6 Basophils % 0.5 Nucleated RBC % 0 Sodium 139 Potassium 4.6 Chloride 105 Carbon Dioxide 27 Anion Gap 8 BUN 38.2 H Creatinine 1.2 Est GFR (CKD-EPI)AfAm 67.20 Est GFR (CKD-EPI)NonAf 57.98 Random Glucose 82 Calcium 9.2 Magnesium 2.2 Total Bilirubin 0.3 AST 21 ALT 61 Alkaline Phosphatase 66 Total Protein 7.2 Albumin 3.6 Blood Type A POSITIVE Antibody Screen Negative 05/06/19 09:23 WBC RBC Hgb Hct MCV MCH MCHC RDW Plt Count MPV Absolute Neuts (auto) Neutrophils % Lymphocytes % Monocytes % Eosinophils % Basophils % Nucleated RBC % Sodium Potassium Chloride Carbon Dioxide Anion Gap BUN Creatinine Est GFR (CKD-EPI)AfAm Est GFR (CKD-EPI)NonAf Random Glucose Calcium Magnesium Total Bilirubin AST ALT Alkaline Phosphatase Total Protein Albumin Blood Type A POSITIVE Antibody Screen Current Active Problems Problem Status Onset Back pain Acute CAD (coronary artery disease) Acute DVT prophylaxis Acute Diabetes 1.5, managed as type 2 Acute HTN (hypertension) Acute Hemorrhoids that prolapse with straining and require manual replacement back inside anal canal Acute Intractable back pain Acute Osteoarthritis Acute Prophylactic measure Acute Prophylactic measure Acute Residual hemorrhoidal skin tags Acute S/P TAVR (transcatheter aortic valve replacement) Acute Urinary retention Acute Plan Continue with surgery Will follow post op. Problem List - Problems (1) CAD (coronary artery disease) Code(s): I25.10 - ATHSCL HEART DISEASE OF [place] CORONARY ARTERY W/O ANG PCTRS Qualifiers: Coronary Disease-Associated Artery/Lesion type: [place] artery [place] vs. transplanted heart: [place] heart Associated angina: without angina Qualified Code(s): I25.10 - Atherosclerotic heart disease of [place] coronary artery without angina pectoris (2) Intractable back pain Code(s): M54.9 - DORSALGIA, UNSPECIFIED (3) Diabetes 1.5, managed as type 2 Code(s): E13.9 - OTHER SPECIFIED DIABETES MELLITUS WITHOUT COMPLICATIONS (4) HTN (hypertension) Code(s): I10 - ESSENTIAL (PRIMARY) HYPERTENSION Qualifiers: Hypertension type: essential hypertension Qualified Code(s): I10 - Essential (primary) hypertension
[2019-05-06] MEDS ORDERED: VANCOMYCIN 1,000 MG VIAL (RESTRICTED TO ID ONLY) ONE ×3 (14:03→15:30)
[2019-05-06] MEDS ORDERED: LIDOCAINE 1%-EPI 1:100,000 30 ML MDV IJ ONE ×2 (14:03→14:07)
[2019-05-06] MEDS ORDERED: GENTAMICIN SO4 80 MG/2 ML VIAL ONE (14:03)
[2019-05-06] MEDS ORDERED: BUPIVACAINE HCL/PF 0.5% (5 MG/ML) 30 ML VIAL IJ ONE ×2 (14:03→18:30)
[2019-05-06] MEDS ORDERED: THROMBIN (BOVINE) 20,000 UNIT VIAL TP ONE (14:10)
[2019-05-06] MEDS ORDERED: ONDANSETRON 4 MG/2 ML VIAL IVPUSH PRN ×3 (14:42→19:28)
[2019-05-06] MEDS ORDERED: DEXAMETHASONE SOD PHOSPHATE 4 MG/1 ML VIAL IVPUSH PRN (14:42)
[2019-05-06] MEDS ORDERED: PROMETHAZINE HCL 25 MG/1 ML VIAL IVPB PRN ×2 (14:42→19:28)
[2019-05-06] MEDS ORDERED: LACTATED RINGERS SOLUTION 1,000 ML IV SCH ×3 (14:45→19:30)
[2019-05-06] MEDS ORDERED: HYDROmorphone *PCA* 10MG/50ML DISP.SYRIN PCA SCH (14:45)
[2019-05-06] MEDS ORDERED: THROMBIN (BOVINE) 5,000 UNIT VIAL TP ONE ×2 (14:49→15:57)
[2019-05-06] MEDS ORDERED: MIDAZOLAM HCL 2 MG/2 ML SINGLE DOSE VIAL ONE (15:00)
[2019-05-06] MEDS ORDERED: ROCURONIUM BROMIDE 50 MG/5 ML SYRINGE ONE (15:00)
[2019-05-06] MEDS ORDERED: PROPOFOL 20 ML ONE (15:01)
[2019-05-06] MEDS ORDERED: LIDOCAINE HCL/PF 2% SDV 5ML VIAL ONE (15:07)
[2019-05-06] MEDS ORDERED: EPHEDRINE SULFATE/0.9% NACL/PF 50 MG/10 ML SYRINGE NR ONE (15:17)
[2019-05-06] MEDS ORDERED: BUPIVACAINE LIPOSOME/PF (EXPAREL) 266 MG/20 ML VIAL ONE (15:20)
[2019-05-06] MEDS ORDERED: ceFAZolin SODIUM 1 GM VIAL ONE (15:30)
[2019-05-06] MEDS ORDERED: SODIUM CHLORIDE 0.9% P/F 10 ML VIAL IJ ONE ×2 (15:30→15:32)
[2019-05-06] MEDS ORDERED: ceFAZolin SODIUM 1 GM VIAL IVPB ONE (15:32)
[2019-05-06] MEDS ORDERED: DEXAMETHASONE SOD PHOSPHATE 4 MG/1 ML VIAL ONE (15:35)
[2019-05-06] MEDS ORDERED: VANCOMYCIN 1,000 MG VIAL (RESTRICTED TO ID ONLY) IVPB ONE (15:35)
[2019-05-06] MEDS ORDERED: ONDANSETRON 4 MG/2 ML VIAL ONE (15:35)
[2019-05-06] MEDS ORDERED: LIDOCAINE 1%/EPI 1:100000 (50 ML MULTI DOSE VIAL) NR ONE (15:38)
[2019-05-06 15:44] LABS: INR 1.1 (0.83-1.09)
[2019-05-06 15:46] LABS: ACTIVATED PTT 36.9 SECONDS (25.2-36.5)
[2019-05-06] MEDS ORDERED: GENTAMICIN SO4 80 MG/2 ML VIAL IVPB ONE (15:53)
[2019-05-06] MEDS ORDERED: BACITRACIN 50,000 UNITS VIAL TP ONE (15:53)
[2019-05-06] MEDS ORDERED: DESFLURANE GAS 240 ML BOTTLE IH ONE (16:13)
[2019-05-06] MEDS ORDERED: VECURONIUM BROMIDE 10 MG VIAL ONE (16:32)
[2019-05-06] MEDS ORDERED: GLYCOPYRROLATE 0.2 MG/1 ML VIAL ONE (18:06)
[2019-05-06] MEDS ORDERED: MORPHINE 5 MG/10 ML AMP - FOR COMPOUNDING USE ONLY ONE (18:06)
[2019-05-06] MEDS ORDERED: NEOSTIGMINE METHYLSULFATE 0.5 MG/1 ML - 10 ML MDV ONE (18:06)
[2019-05-06] MEDS ORDERED: BUPIVACAINE LIPOSOME/PF (EXPAREL) 266 MG/20 ML VIAL NR ONE (18:30)
[2019-05-06] MEDS ORDERED: NALOXONE HCL 0.4 MG/ML VIAL IVPUSH PRN (19:18)
[2019-05-06] MEDS ORDERED: oxyCODONE HCL 5 MG TABLET PO PRN (19:18)
[2019-05-06] MEDS ORDERED: diphenhydrAMINE HCL 25 MG CAPSULE (FP) PO PRN (19:20)
[2019-05-06] MEDS ORDERED: ACETAMINOPHEN 1000 MG/100 ML VIAL (NON FORMULARY) IVPB PRN (19:20)
[2019-05-06] MEDS ORDERED: BISACODYL 10 MG SUPP.RECT PR PRN (19:28)
[2019-05-06] MEDS ORDERED: LACTATED RINGERS SOLUTION 1,000 ML/1,000 ML INFUS.BAG IV SCH (19:30)
--- NOTE | 2019-05-06 19:37 | OP ---
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 LBP Operation: L2-L5 Laminectomies and osteotomies, with removal of foramenal disc L45 and L2-L5 fusion with pedicle screws and arthrodesis, insertion of cages, and correction of deformity. Post-Operative Diagnosis: Other (lumbar spondylosis and large right L45 foramenal disc) Surgeon: Aureliano Porter Data Operations Leader: Alysa Mckeon Anesthesiologist/PACKER OPERATOR AUTOMATIC: Bogdan Benavides Anesthesia: General, Spinal (intra-op duramorph spinal given), Local Specimens Removed: L45 disc fragment Estimated Blood Loss (mls): 250 Drains & Tubes with Location: right lumbar paravetebral ISAC drain Drains, Volume Out (mls): 250 (parks) Fluid Volume Replaced (mls): 1,500
[2019-05-06] MEDS: ACETAMINOPHEN 325 MG TABLET (FP) PO SCH (19:56)
[2019-05-06] MEDS ORDERED: ACETAMINOPHEN INJECTION 100 ML IVPB ONE (20:02)
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
[2019-05-06] MEDS ORDERED: CHLORHEXIDINE GLUCONATE 4% CLEANSER FOR DECOLONIZATION TP SCH ×2 (22:00)
[2019-05-06] MEDS ORDERED: SENNOSIDES 8.6MG TABLET (FP) PO SCH (22:00)
[2019-05-06] MEDS ORDERED: ATORVASTATIN CA 20 MG TABLET (FP) PO SCH (22:00)
[2019-05-06] MEDS ORDERED: LIDOCAINE PATCH REMOVAL MC SCH (22:00)
[2019-05-06] MEDS ORDERED: MUPIROCIN 2% TOPICAL OINTMENT FOR DECOLONIZATION NS SCH (22:00)
[2019-05-06] MEDS: MUPIROCIN 2% TOPICAL OINTMENT FOR DECOLONIZATION NS SCH (22:21)
[2019-05-06] MEDS: HEPARIN NA (PORCINE) 5,000 UNITS/ML 1ML VIAL SQ SCH (22:22)
[2019-05-07] MEDS: ACETAMINOPHEN 325 MG TABLET (FP) PO SCH ×4 (01:34→18:57)
[2019-05-07] MEDS: DOCUSATE SODIUM 100 MG CAPSULE (FP) PO SCH ×4 (03:03→22:05)
[2019-05-07] MEDS: GABAPENTIN 300 MG CAPSULE (FP) PO SCH ×4 (03:03→22:06)
[2019-05-07] MEDS: TIZANIDINE HCL 2 MG TABLET PO SCH ×2 (03:03→05:38)
[2019-05-07] MEDS: HEPARIN NA (PORCINE) 5,000 UNITS/ML 1ML VIAL SQ SCH ×3 (05:37→22:04)
[2019-05-07 06:30] LABS: HEMATOCRIT 29.9 % (35.4-49); HEMOGLOBIN 9.8 GM/dL (11.7-16.9); MCH 29.9 pg (25.7-33.7); MCHC 32.7 g/dl (32.0-35.9); MEAN CELL VOLUME 91.5 fl (80-96); MEAN PLT VOLUME 9.1 fl (7.5-11.1); PLATELET COUNT 170 K/MM3 (134-434); RBC 3.27 M/mm3 (4.00-5.60); RDW 14.5 % (11.9-15.9); WHITE BLOOD COUNT 7.3 K/mm3 (4.0-10.0)
[2019-05-07 07:13] LABS: BLOOD UREA NITROGEN 34.5 mg/dL (7-18); CALCIUM 9.2 mg/dL (8.5-10.1); CREATININE 1.3 mg/dL (0.55-1.3); PHOSPHOROUS 5.7 mg/dL (2.5-4.9); POTASSIUM 4.9 mmol/L (3.5-5.1)
[2019-05-07 08:12] LABS: BASO % 0.2 % (0-2.0); EOS % 0.1 % (0-4.5); HEMATOCRIT 27.8 % (35.4-49); HEMOGLOBIN 9.3 GM/dL (11.7-16.9); LYMPH % 10.8 % (8-40); MCH 30.4 pg (25.7-33.7); MCHC 33.5 g/dl (32.0-35.9); MEAN CELL VOLUME 90.6 fl (80-96); MEAN PLT VOLUME 8.5 fl (7.5-11.1); MONO % 9.3 % (3.8-10.2); NEUT % 79.6 % (42.8-82.8); PLATELET COUNT 165 K/MM3 (134-434); RBC 3.07 M/mm3 (4.00-5.60); RDW 14.1 % (11.9-15.9); WHITE BLOOD COUNT 7.5 K/mm3 (4.0-10.0)
[2019-05-07] MEDS ORDERED: TAMSULOSIN HCL 0.4 MG CAP PO SCH (08:30)
--- NOTE | 2019-05-07 08:51 | PN ---
Progress Note (short form) - Note Progress Note: Day 1 post op: L2-L5 Laminectomies and osteotomies, with removal of foramenal disc L45 and L2-L5 fusion with pedicle screws and arthrodesis, insertion of cages, and correction of deformity Awake, alert. Pain is well controlled. Vital Signs Temp 97.9 F 05/07/19 07:30 Pulse 64 05/07/19 07:30 Resp 15 05/07/19 07:30 BP 128/55 L 05/07/19 07:30 Pulse Ox 100 05/07/19 07:30 Intake & Output 05/06/19 05/06/19 05/07/19 11:59 23:59 11:59 Intake Total 0 1850 1200 Output Total 1300 700 Balance 0 550 500 Intake: IV 0 1800 1000 LACTATED RINGERS SOLUTION 1000 1,000 ml In 1,000 ml @ 100 mls/hr IV ASDIR PAUL Rx#:[id number] saline lock 0 0 Oral 0 50 200 Output: Drainage 100 200 Back 200 Urine 950 500 Hua 500 Void 400 Estimated Blood Loss 250 Other: Voiding Method Toilet Indwelling Catheter Indwelling Catheter Bowel Movement No SHALA Neck supple, no JVD Lungs clear Heart s1S2 regular. Telemetry SR Abdomen soft, nt Hua IN PLACE ISAC small amount of blood moves both LE Laboratory Results - last 24 hr 05/06/19 05/06/19 05/06/19 07:05 09:23 14:51 WBC RBC Hgb Hct MCV MCH MCHC RDW Plt Count MPV Absolute Neuts (auto) Neutrophils % Lymphocytes % Monocytes % Eosinophils % Basophils % Nucleated RBC % PT with INR 13.00 INR 1.10 H PTT (Actin FS) 36.9 H Sodium Potassium Chloride Carbon Dioxide Anion Gap BUN Creatinine Est GFR (CKD-EPI)AfAm Est GFR (CKD-EPI)NonAf POC Glucometer Random Glucose Calcium Phosphorus Magnesium Blood Type A POSITIVE A POSITIVE Antibody Screen Negative 05/06/19 05/07/19 05/07/19 21:00 05:20 05:20 WBC 7.3 RBC 3.27 L Hgb 9.8 L Hct 29.9 L MCV 91.5 MCH 29.9 MCHC 32.7 RDW 14.5 Plt Count 170 MPV 9.1 Absolute Neuts (auto) Neutrophils % Lymphocytes % Monocytes % Eosinophils % Basophils % Nucleated RBC % PT with INR INR PTT (Actin FS) Sodium 140 Potassium 4.9 Chloride 106 Carbon Dioxide 28 Anion Gap 6 L BUN 34.5 H Creatinine 1.3 Est GFR (CKD-EPI)AfAm 61.00 Est GFR (CKD-EPI)NonAf 52.63 POC Glucometer 151 Random Glucose 96 Calcium 9.2 Phosphorus 5.7 H Magnesium 2.0 Blood Type Antibody Screen 05/07/19 07:34 WBC 7.5 RBC 3.07 L Hgb 9.3 L Hct 27.8 L MCV 90.6 MCH 30.4 MCHC 33.5 RDW 14.1 Plt Count 165 MPV 8.5 Absolute Neuts (auto) 5.9 Neutrophils % 79.6 Lymphocytes % 10.8 D Monocytes % 9.3 Eosinophils % 0.1 D Basophils % 0.2 Nucleated RBC % 0 PT with INR INR PTT (Actin FS) Sodium Potassium Chloride Carbon Dioxide Anion Gap BUN Creatinine Est GFR (CKD-EPI)AfAm Est GFR (CKD-EPI)NonAf POC Glucometer Random Glucose Calcium Phosphorus Magnesium Blood Type Antibody Screen Current Active Problems Problem Status Onset Back pain L2-L5 Laminectomies and osteotomies, with removal of foramenal disc L45 and L2- L5 fusion with pedicle screws and arthrodesis, insertion of cages, and correction of deformity Acute CAD (coronary artery disease) Acute DVT prophylaxis Acute Diabetes 1.5, managed as type 2 Acute HTN (hypertension) Acute Hemorrhoids that prolapse with straining and require manual replacement back inside anal canal Acute Intractable back pain Acute Osteoarthritis Acute Prophylactic measure Acute Prophylactic measure Acute Residual hemorrhoidal skin tags Acute S/P TAVR (transcatheter aortic valve replacement) Acute Urinary retention Acute Plan IV fluids LR Follow vitals Follow electrolytes, BMP Cardiology, neurosurgery f/u PT Problem List - Problems (1) CAD (coronary artery disease) Code(s): I25.10 - ATHSCL HEART DISEASE OF [place] CORONARY ARTERY W/O ANG PCTRS Qualifiers: Coronary Disease-Associated Artery/Lesion type: [place] artery [place] vs. transplanted heart: [place] heart Associated angina: without angina Qualified Code(s): I25.10 - Atherosclerotic heart disease of [place] coronary artery without angina pectoris (2) Intractable back pain Code(s): M54.9 - DORSALGIA, UNSPECIFIED (3) Diabetes 1.5, managed as type 2 Code(s): E13.9 - OTHER SPECIFIED DIABETES MELLITUS WITHOUT COMPLICATIONS (4) HTN (hypertension) Code(s): I10 - ESSENTIAL (PRIMARY) HYPERTENSION Qualifiers: Hypertension type: essential hypertension Qualified Code(s): I10 - Essential (primary) hypertension
[2019-05-07] MEDS ORDERED: LACTATED RINGERS SOLUTION 1,000 ML/1,000 ML INFUS.BAG IV SCH (09:13)
[2019-05-07] MEDS: POLYETHYLENE GLYCOL 3350 119 GM BTL PO SCH ×2 (09:47→22:50)
[2019-05-07] MEDS: METOPROLOL TARTRATE 50 MG TABLET (FP) PO SCH ×2 (09:47→22:08)
[2019-05-07] MEDS: PHENYLEPHRINE HCL/COCOA BUTTER SUPPOSITORY RC SCH ×2 (09:48→22:49)
[2019-05-07] MEDS: MUPIROCIN 2% TOPICAL OINTMENT FOR DECOLONIZATION NS SCH ×2 (09:49→22:14)
[2019-05-07] MEDS ORDERED: FOLIC ACID 1 MG TABLET (FP) PO SCH (10:00)
[2019-05-07] MEDS ORDERED: ASPIRIN COATED 81 MG TABLET.EC PO SCH (10:00)
[2019-05-07] MEDS ORDERED: FERROUS SO4 325 MG TABLET (FP) PO SCH (10:00)
[2019-05-07] MEDS ORDERED: CEFAZOLIN 1 GM in DEXTROSE 5%-WATER - 50 ML IVPB SCH (10:00)
[2019-05-07] MEDS ORDERED: LISINOPRIL 20 MG TABLET (FP) PO SCH (10:00)
[2019-05-07] MEDS ORDERED: ceFAZolin SODIUM 1 GM VIAL ONE (10:23)
[2019-05-07] MEDS ORDERED: DEXTROSE 5%-WATER - 50 ML IVPB ONE (10:24)
[2019-05-07] MEDS ORDERED: PT OWN MED DRAWER 7, Y5N ONE (10:27)
[2019-05-07] MEDS: HYDROCORTISONE 2.5% TOPICAL CREAM 30 GM TUBE TP SCH ×2 (10:32→10:33)
--- NOTE | 2019-05-07 10:39 | PN ---
Progress Note (short form) - Note Progress Note: POD#1 Pt without any complaints this am. His pain is at a level 2. No headache, nausea or emesis. Vital Signs Period Temp Pulse Resp BP Sys/López Pulse Ox Last 24 Hr 96.8 F-98.4 F 64-87 11-20 108-147/45-80 98-100 ISAC: 250ml dark blood [place]: 500 clear/yellow urine GEN: A&0x3, NAD CV: RRR Lungs: CTA b/l anteriorly ABD: soft, non-distended, non-tender BACK: inc c/d/i with dermabond, no drainage or erythema noted. Reapplied dermabond today to the wound, drain removed with the tip intact. NEURO: 5/5 dorsi/plantar b/l. Able to straight leg raise b/l legs, left higher than right. CBC, BMP 05/07/19 07:34 05/07/19 05:20 A/p: s/p L2-L5 Laminectomies and osteotomies, with removal of foramenal disc L45 and L2-L5 fusion with pedicle screws and arthrodesis, insertion of cages, and correction of deformity. Drain removed this am, D/w Dr. Porter and may resume aspirin today, plavix on 05/08(ordered) Diet as tolerated, may discontinue IVF after tolerating a diet OOB to chair, TLSO brace ordered/PT When oob to chair, remove parks for TOV Pain management as per anesthesia D/w Dr. Porter
--- NOTE | 2019-05-07 11:42 | PN ---
Progress Note (short form) - Note Progress Note: Anesthesiologist post op not, POD#1, s/p L2-4 laminectomy under GA, intrathecal duramorph administered by surgeon. Pat seen and examined. VSS. Pain 1-2/10 No apparent post anesthesia complications.
[2019-05-07] MEDS ORDERED: SODIUM CHLORIDE 500 ML IV STA (12:21)
--- NOTE | 2019-05-07 12:26 | PN ---
Teaching Attending Note Name of Resident: Ag Patton ATTENDING PHYSICIAN STATEMENT I saw and evaluated the patient. I reviewed the resident's note and discussed the case with the resident. I agree with the resident's findings and plan as documented. SUBJECTIVE: Pt seen and examined in the ICU. Pain controlled. Denies shortness of breath or chest pain. OBJECTIVE: Vital Signs Period Temp Pulse Resp BP Sys/López Pulse Ox Last 24 Hr 96.8 F-98.4 F 64-87 11-20 108-147/45-80 98-100 Intake & Output 05/04/19 05/05/19 05/06/19 05/07/19 23:59 23:59 23:59 23:59 Intake Total 400 1000 1850 1200 Output Total 2300 1050 1300 700 Balance -1900 -50 550 500 Gen: NAD in chair Heart: RRR Lung: decreased breath sounds at the bases Abd: soft, nontender Ext: no edema CBC, BMP 05/07/19 07:34 05/07/19 05:20 Active Medications Acetaminophen (Tylenol -) 650 mg PO Q6H [facility] Last Admin: 05/07/19 06:52 Dose: 650 mg Aspirin (Ecotrin -) 81 mg PO DAILY [facility] Last Admin: 05/07/19 09:47 Dose: 81 mg Atorvastatin Calcium (Lipitor -) 20 mg PO HS [facility] Last Admin: 05/06/19 22:22 Dose: 20 mg Bisacodyl (Dulcolax Suppository -) 10 mg LA PRN PRN PRN Reason: CONSTIPATION Chlorhexidine Gluconate (Hibiclens For Decolonization -) 1 applic TP HS [facility] Last Admin: 05/06/19 22:22 Dose: 1 applic Clopidogrel Bisulfate (Plavix -) 75 mg PO DAILY [facility] [place] Butter/Phenylephrine (Preparation H Suppository) 1 each RC BID [facility] Last Admin: 05/07/19 09:48 Dose: 1 each Diphenhydramine HCl (Benadryl -) 25 mg PO Q6H PRN PRN Reason: FOR ITCHING Docusate Sodium (Colace -) 100 mg PO TID [facility] Last Admin: 05/07/19 05:37 Dose: 100 mg Ferrous Sulfate (Feosol -) 325 mg PO DAILY [facility] Last Admin: 05/07/19 09:47 Dose: 325 mg Folic Acid (Folic Acid -) 1 mg PO DAILY [facility] Last Admin: 05/07/19 09:47 Dose: 1 mg Gabapentin (Neurontin -) 300 mg PO TID [facility] Last Admin: 05/07/19 05:38 Dose: 300 mg Heparin Sodium (Porcine) (Heparin -) 5,000 unit SQ TID [facility] Last Admin: 05/07/19 05:37 Dose: 5,000 unit Hydrocortisone (Anusol 2.5% Hc Cream -) 1 applic TP DAILY [facility] Last Admin: 05/07/19 10:33 Dose: Not Given Lactated Ringer's (Lactated Ringers Solution) 1,000 ml in 1,000 mls @ 100 mls/ hr IV ASDIR [facility] Last Admin: 05/07/19 09:47 Dose: Not Given Cefazolin Sodium 1 gm/ (Dextrose) 50 mls @ 100 mls/hr IVPB Q8H-IV [facility] Last Admin: 05/07/19 10:32 Dose: 100 mls/hr Sodium Chloride (Normal Saline -) 500 mls @ 500 mls/hr IV ASDIR [facility] Stop: 05/07/19 13:20 Lisinopril (Prinivil) 20 mg PO DAILY [facility] Last Admin: 05/07/19 09:49 Dose: 20 mg Metoprolol Tartrate (Lopressor -) 50 mg PO BID [facility] Last Admin: 05/07/19 09:47 Dose: 50 mg Mupirocin (Bactroban Ointment (For Decolonization) -) 1 applic NS BID [facility] Stop: 05/11/19 21:59 Last Admin: 05/07/19 09:49 Dose: 1 applic Naloxone HCl (Narcan -) 0.4 mg IVPUSH ONCE PRN PRN Reason: Sedation Ondansetron HCl (Zofran Injection) 4 mg IVPUSH Q4H PRN PRN Reason: NAUSEA AND/OR VOMITING Oxycodone HCl (Roxicodone -) 5 mg PO Q4H PRN PRN Reason: PAIN LEVEL 1-5 Stop: 05/07/19 19:17 Polyethylene Glycol (Miralax (For Daily Use) -) 17 gm PO BID [facility] Last Admin: 05/07/19 09:47 Dose: Not Given Promethazine HCl (Phenergan Injection -) 12.5 mg IVPB Q6H PRN PRN Reason: NAUSEA AND/OR VOMITING Senna (Senna -) 2 tab PO HS [facility] Last Admin: 05/06/19 22:23 Dose: 2 tab Tamsulosin HCl (Flomax -) 0.8 mg PO DAILY@0830 [facility] Last Admin: 05/07/19 09:30 Dose: 0.8 mg ASSESSMENT AND PLAN: Lumbar Spinal Stenosis/Spinal Cord Neurofibroma s/p L2-L5 Laminectomies/Osteotomies/L2-L5 Fusion/Cage Insertion CAD Aortic Stenosis s/p TAVR HTN Hyperlipidemia - pain control - incentive spirometry - resume antiplatelets when ok with surgery - d/c parks - PO as tolerated - DVT prophylaxis - can monitor on floor if ok with surgery
[2019-05-07] MEDS ORDERED: ONDANSETRON 4 MG/2 ML VIAL IVPUSH PRN (14:11)
[2019-05-07] MEDS ORDERED: PROMETHAZINE HCL 25 MG/1 ML VIAL IVPB PRN (14:11)
[2019-05-07] MEDS ORDERED: oxyCODONE HCL 5 MG TABLET PO PRN (14:11)
[2019-05-07] MEDS ORDERED: BISACODYL 10 MG SUPP.RECT RC PRN (14:11)
[2019-05-07] MEDS ORDERED: diphenhydrAMINE HCL 25 MG CAPSULE (FP) PO PRN (14:11)
[2019-05-07] MEDS ORDERED: NALOXONE HCL 0.4 MG/ML VIAL IVPUSH PRN (14:11)
--- NOTE | 2019-05-07 17:08 | PN ---
Physical Exam: SUBJECTIVE: Patient seen and examined at bedside in the ICU. Patient is out of bed and resting comfortably in chair. Pain is well controlled. Denies chest pain , denies shortness of breath. OBJECTIVE: Vital Signs Period Temp Pulse Resp BP Sys/López Pulse Ox Last 24 Hr 96.8 F-99.5 F 64-88 11-22 77-147/39-80 98-100 GENERAL: The patient is awake, alert, and fully oriented, in no acute distress. HEAD: Normal with no signs of trauma. EYES: PERRL, extraocular movements intact, sclera anicteric, conjunctiva clear. No ptosis. ENT: Ears normal, nares patent, oropharynx clear without exudates, moist mucous membranes. NECK: Trachea midline, full range of motion, supple. LUNGS: Breath sounds equal, clear to auscultation bilaterally, no wheezes, no crackles, no accessory muscle use. HEART: Regular rate and rhythm, S1, S2 without murmur, rub or gallop. ABDOMEN: Soft, nontender, nondistended, normoactive bowel sounds, no guarding, no rebound, no hepatosplenomegaly, no masses. BACK: Incision is clean, dry, intact, no obvious purulent drainage or bleeding noted EXTREMITIES: 2+ pulses, warm, well-perfused, no edema. NEUROLOGICAL: Cranial nerves II through XII grossly intact. Normal speech. 5/5 plantar flexion and dorsi-flexion bilaterally. 5/5 hip flexion bilaterally. PSYCH: Normal mood, normal affect. SKIN: Warm, dry, normal turgor, no rashes or lesions noted Laboratory Results - last 24 hr 05/06/19 05/07/19 05/07/19 21:00 05:20 05:20 WBC 7.3 RBC 3.27 L Hgb 9.8 L Hct 29.9 L MCV 91.5 MCH 29.9 MCHC 32.7 RDW 14.5 Plt Count 170 MPV 9.1 Absolute Neuts (auto) Neutrophils % Lymphocytes % Monocytes % Eosinophils % Basophils % Nucleated RBC % Sodium 140 Potassium 4.9 Chloride 106 Carbon Dioxide 28 Anion Gap 6 L BUN 34.5 H Creatinine 1.3 Est GFR (CKD-EPI)AfAm 61.00 Est GFR (CKD-EPI)NonAf 52.63 POC Glucometer 151 Random Glucose 96 Calcium 9.2 Phosphorus 5.7 H Magnesium 2.0 05/07/19 07:34 WBC 7.5 RBC 3.07 L Hgb 9.3 L Hct 27.8 L MCV 90.6 MCH 30.4 MCHC 33.5 RDW 14.1 Plt Count 165 MPV 8.5 Absolute Neuts (auto) 5.9 Neutrophils % 79.6 Lymphocytes % 10.8 D Monocytes % 9.3 Eosinophils % 0.1 D Basophils % 0.2 Nucleated RBC % 0 Sodium Potassium Chloride Carbon Dioxide Anion Gap BUN Creatinine Est GFR (CKD-EPI)AfAm Est GFR (CKD-EPI)NonAf POC Glucometer Random Glucose Calcium Phosphorus Magnesium Active Medications Generic Name Dose Route Start Last Admin Trade Name Freq PRN Reason Stop Dose Admin Acetaminophen 650 mg 05/07/19 19:30 Tylenol - PO Q6H [facility] Aspirin 81 mg 05/08/19 10:00 Ecotrin - PO DAILY [facility] Atorvastatin Calcium 20 mg 05/07/19 22:00 Lipitor - PO HS [facility] Bisacodyl 10 mg 05/07/19 14:11 Dulcolax Suppository - RC PRN PRN CONSTIPATION Clopidogrel Bisulfate 75 mg 05/08/19 10:00 Plavix - PO DAILY [facility] [place] Butter/Phenylephrine 1 each 05/07/19 22:00 Preparation H Suppository RC BID [facility] Diphenhydramine HCl 25 mg 05/07/19 14:11 Benadryl - PO Q6H PRN FOR ITCHING Docusate Sodium 100 mg 05/07/19 22:00 Colace - PO TID [facility] Ferrous Sulfate 325 mg 05/08/19 10:00 Feosol - PO DAILY [facility] Folic Acid 1 mg 05/08/19 10:00 Folic Acid - PO DAILY [facility] Gabapentin 300 mg 05/07/19 22:00 Neurontin - PO TID [facility] Heparin Sodium (Porcine) 5,000 unit 05/07/19 22:00 Heparin - SQ TID [facility] Hydrocortisone 1 applic 05/08/19 10:00 Anusol 2.5% Hc Cream - TP DAILY [facility] Lisinopril 20 mg 05/08/19 10:00 Prinivil PO DAILY [facility] Metoprolol Tartrate 50 mg 05/07/19 22:00 Lopressor - PO BID [facility] Mupirocin 1 applic 05/07/19 22:00 Bactroban Ointment (For Decolonization) - NS 05/11/19 21:59 BID [facility] Naloxone HCl 0.4 mg 05/07/19 14:11 Narcan - IVPUSH ONCE PRN Sedation Ondansetron HCl 4 mg 05/07/19 14:11 Zofran Injection IVPUSH Q4H PRN NAUSEA AND/OR VOMITING Oxycodone HCl 5 mg 05/07/19 14:11 Roxicodone - PO 05/07/19 19:17 Q4H PRN PAIN LEVEL 1-5 Polyethylene Glycol 17 gm 05/07/19 22:00 Miralax (For Daily Use) - PO BID [facility] Promethazine HCl 12.5 mg 05/07/19 14:11 Phenergan Injection - IVPB Q6H PRN NAUSEA AND/OR VOMITING Senna 2 tab 05/07/19 22:00 Senna - PO HS [facility] Tamsulosin HCl 0.8 mg 05/08/19 08:30 Flomax - PO DAILY@0830 [facility] ASSESSMENT/PLAN: This is a 78 y/o man with a PMHx of chronic back pain, CAD s/p 6 stents ( previously on DAPT), TAVR, HLD, HTN, and arthritis who presented to the ED with acute exacerbation of a chronic lower back pain that had been present for the past 4 months. Pt is currently s/p L2-L5 Laminectomies and osteotomies, with removal of foramenal disc L45 and L2-L5 fusion with pedicle screws and arthrodesis, insertion of cages, and correction of deformity. Neuro-> s/p L2-L5 Laminectomies and osteotomies, with removal of foramenal disc L45 and L2-L5 fusion with pedicle screws and arthrodesis, insertion of cages, and correction of deformity. - incentive tina Q1h - monitor for signs of infection, fevers - PT in Am - CT lumbar spine pending - OOB as tolerated - H/H, transfuse if <7 - cefazolin post op abx - dulcolax 10mg PRN - Colace, Fe - naloxone PRN for sedation, zofran for nausea (last qtc 444ms), oxycodone 5mg PO q4h PRN for severe pain - tizanodine for muscle spasms 2mg PO TID - Tamsulosin 0.8mg PO Daily Cardio-> HTN/HLD/s/p TAVR/CAD s/p PCI - pt off ASA and plavix for 5 days before surgery. - continue to hold asa, plavix until pt stable post op -stable no angina no signs acs -cont BB, raeann inhibitor, and statin - last PCI was in 2009, >1 year since TAVR -stable, no signs of chf - continued cardiac monitoring Respiratory -> - incentive tina Q1H - CXR in AM FENGI 100cc/hr LR monitor lytes diabetic diet, PO as tolerated GI ppx: none DVT PPX: Heparin 5K TID, SCD's Dispo: transfer to floor Visit type - Emergency Visit Emergency Visit: No - New Patient This patient is new to me today: No - Critical Care Critical Care patient: Yes Total Critical Care Time (in minutes): 35 Critical Care Statement: The care of this patient involved high complexity decision making to prevent further life threatening deterioration of the patient 's condition and/or to evaluate & treat vital organ system(s) failure or risk of failure. ATTENDING PHYSICIAN STATEMENT I saw and evaluated the patient. I reviewed the resident's note and discussed the case with the resident. I agree with the resident's findings and plan as documented. SUBJECTIVE: OBJECTIVE: ASSESSMENT AND PLAN:
[2019-05-07] MEDS ORDERED: CHLORHEXIDINE GLUCONATE 4% CLEANSER FOR DECOLONIZATION TP SCH (22:00)
[2019-05-07] MEDS: ATORVASTATIN CA 20 MG TABLET (FP) PO SCH (22:05)
[2019-05-07] MEDS: SENNOSIDES 8.6MG TABLET (FP) PO SCH (22:06)
[2019-05-07] MEDS ORDERED: CEFAZOLIN 1 GM/D5W 1 GM/50 ML BAG IVPB SCH (23:30)
[2019-05-08] MEDS: ACETAMINOPHEN 325 MG TABLET (FP) PO SCH ×4 (02:00→21:03)
[2019-05-08] MEDS ORDERED: LIDOCAINE 5% TOPICAL PATCH TP ONE (05:03)
[2019-05-08] MEDS: DOCUSATE SODIUM 100 MG CAPSULE (FP) PO SCH ×3 (05:26→21:04)
[2019-05-08] MEDS: GABAPENTIN 300 MG CAPSULE (FP) PO SCH ×3 (05:26→21:05)
[2019-05-08] MEDS: HEPARIN NA (PORCINE) 5,000 UNITS/ML 1ML VIAL SQ SCH ×2 (05:27→13:23)
[2019-05-08 07:01] LABS: BASO % 0.3 % (0-2.0); HEMOGLOBIN 8.4 GM/dL (11.7-16.9); LYMPH % 6.9 % (8-40); MCH 30.3 pg (25.7-33.7); MCHC 33.4 g/dl (32.0-35.9); MEAN CELL VOLUME 90.5 fl (80-96); MEAN PLT VOLUME 9.4 fl (7.5-11.1); MONO % 7.1 % (3.8-10.2); NEUT % 85.7 % (42.8-82.8); PLATELET COUNT 116 K/MM3 (134-434); RBC 2.77 M/mm3 (4.00-5.60); RDW 14.4 % (11.9-15.9); WHITE BLOOD COUNT 12.3 K/mm3 (4.0-10.0)
[2019-05-08 07:27] LABS: BLOOD UREA NITROGEN 21.3 mg/dL (7-18); CALCIUM 8.3 mg/dL (8.5-10.1); CREATININE 1.2 mg/dL (0.55-1.3); POTASSIUM 3.9 mmol/L (3.5-5.1)
[2019-05-08] MEDS: TAMSULOSIN HCL 0.4 MG CAP PO SCH (08:47)
[2019-05-08] MEDS: METOPROLOL TARTRATE 50 MG TABLET (FP) PO SCH ×2 (09:06→21:05)
[2019-05-08] MEDS: ASPIRIN COATED 81 MG TABLET.EC PO SCH (09:06)
[2019-05-08] MEDS: FERROUS SO4 325 MG TABLET (FP) PO SCH (09:07)
[2019-05-08] MEDS ORDERED: PT OWN MED DRAWER 7, Y5N ONE ×2 (09:25→18:47)
[2019-05-08] MEDS: POLYETHYLENE GLYCOL 3350 119 GM BTL PO SCH ×2 (09:27→21:05)
[2019-05-08] MEDS: CLOPIDOGREL BISULFATE 75 MG TABLET (FP) PO SCH (09:27)
[2019-05-08] MEDS: FOLIC ACID 1 MG TABLET (FP) PO SCH (09:29)
[2019-05-08] MEDS: MUPIROCIN 2% TOPICAL OINTMENT FOR DECOLONIZATION NS SCH ×2 (09:30→21:04)
[2019-05-08] MEDS: HYDROCORTISONE 2.5% TOPICAL CREAM 30 GM TUBE TP SCH (09:31)
[2019-05-08] MEDS: PHENYLEPHRINE HCL/COCOA BUTTER SUPPOSITORY RC SCH ×2 (09:36→21:05)
[2019-05-08] MEDS: oxyCODONE HCL 5 MG TABLET PO PRN ×3 (09:46→22:26)
--- NOTE | 2019-05-08 09:49 | PN ---
Progress Note (short form) - Note Progress Note: POD #2 L2-L5 mayela/decompresison and fusion. Patient seen and examined at bedside c/o right leg pain which is the same quality as his pre-op symptoms. He is also complaining of some hemorrhoidal pain this morning. Nursing reinserted the parks yesterday after his post void bladder scan revealed >600cc of retained urine. He is tolerating his diet and denies any CP, SOB, N/V, subjective fever or chills Vital Signs Temp 98.2 F 05/08/19 06:49 Pulse 80 05/08/19 06:49 Resp 20 05/08/19 06:49 BP 137/54 L 05/08/19 06:49 Pulse Ox 100 05/07/19 21:00 Intake & Output 05/07/19 05/07/19 05/08/19 11:59 23:59 11:59 Intake Total 1200 1750 300 Output Total 521 196 5978 Balance 500 825 -1100 Intake: IV 1000 1200 LACTATED RINGERS SOLUTION 1000 1,000 ml In 1,000 ml @ 100 mls/hr IV ASDIR [facility] Rx#:[id number] LACTATED RINGERS SOLUTION 700 1,000 ml In 1,000 ml @ 100 mls/hr IV ASDIR [facility] Rx#:[id number] Normal Saline - 500 ml @ 500 500 mls/hr IV ASDIR STA Rx#:[id number] IVPB 50 Oral 200 500 300 Output: Drainage 200 50 Back 200 50 Urine 436 884 1222 Parks 113 583 3127 Void 225 Other: Voiding Method Indwelling Catheter Urinal # Unmeasured Voids Void 0 Bowel Movement No No Weight Measurement Method Standing Scale GEN: A&0x3, NAD Unlabored resp on RA BACK: inc c/d/i with dermabond and surrounding tissue intact with no tracking erythema ora d/c. drain ostomy site clean and dry with no evidence of active d/ c NEURO: B/L LE compartments soft, supple and non-tender to palpation. 5/5 dorsi/ plantar flexion with +2 DP pulses. Able to straight leg raise b/l legs, left higher than right. prolapsed Hemorrhoid visualized, with no evidence of active bleeding or ulceration. Problem List - Problems (1) S/P lumbar spinal fusion Assessment/Plan: A/p: s/p L2-L5 Laminectomies and osteotomies, with removal of foramenal disc L45 and L2-L5 fusion with pedicle screws and arthrodesis, insertion of cages, and correction of deformity. continue aspirin and plavix SITZ baths, tucks pads, Dr Ma already consult 04/25-f/u with colorectal as out patient Diet as tolerated, may discontinue IVF after tolerating a diet OOB to chair, TLSO brace ordered/PT When oob to chair, remove parks for TO05/09 Pain management D/w Dr. Porter Code(s): Z98.1 - ARTHRODESIS STATUS
[2019-05-08] MEDS ORDERED: LISINOPRIL 20 MG TABLET (FP) PO SCH (10:00)
[2019-05-08] MEDS ORDERED: CLOPIDOGREL BISULFATE 75 MG TABLET (FP) PO SCH (10:00)
--- NOTE | 2019-05-08 14:22 | PN ---
Progress Note (short form) - Note Progress Note: Please note this progress note is dated 05/07/2019 s: no chest pain, palps, dizziness, dyspnea. POD1 from s/p L2-L5 Laminectomies/ Osteotomies/L2-L5 Fusion/Cage Insertion vitals reviewed nad no jvd rrr s1s2 no mrg cta bl nl eff aao3 no le e/c/c abd nt nd pos bs no jaundice diaphoresis tele: sinus ecg: sr nl intervals no ischemic changes cxr: clear lungs a/p: 78 m hx htn, hld, cad s/p remote pci, tavr 02/2018, here with low back pain. back pain, post op s/p L2-L5 Laminectomies/Osteotomies/L2-L5 Fusion/Cage Insertion -manage per surgery - restart aspirin and plavix when able post op htn: -cont raeann, bb hld: -cont statin cad, remote pci: -stable no angina no signs acs -cont bb, raeann, asa, statin, plavix - last PCI 2009, >1 year since TAVR - restart DAPT when able per surgery as s/p tavr: -stable, no signs chf -holding DAPT as above for surgery
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
[2019-05-08] MEDS: LIDOCAINE PATCH REMOVAL MC SCH (21:04)
[2019-05-08] MEDS: SENNOSIDES 8.6MG TABLET (FP) PO SCH (21:05)
[2019-05-08] MEDS: ATORVASTATIN CA 20 MG TABLET (FP) PO SCH (21:05)
[2019-05-09] MEDS: ACETAMINOPHEN 325 MG TABLET (FP) PO SCH ×4 (03:19→20:46)
[2019-05-09] MEDS: oxyCODONE HCL 5 MG TABLET PO PRN ×5 (03:20→21:08)
[2019-05-09] MEDS: GABAPENTIN 300 MG CAPSULE (FP) PO SCH ×3 (06:16→21:09)
[2019-05-09] MEDS: DOCUSATE SODIUM 100 MG CAPSULE (FP) PO SCH ×3 (06:16→21:09)
[2019-05-09 08:02] LABS: BASO % 0.3 % (0-2.0); EOS % 0.1 % (0-4.5); HEMOGLOBIN 8.1 GM/dL (11.7-16.9); LYMPH % 8.8 % (8-40); MCH 30.4 pg (25.7-33.7); MCHC 33.8 g/dl (32.0-35.9); MEAN PLT VOLUME 9.4 fl (7.5-11.1); MONO % 7.2 % (3.8-10.2); NEUT % 83.6 % (42.8-82.8); PLATELET COUNT 114 K/MM3 (134-434); RBC 2.67 M/mm3 (4.00-5.60); RDW 14.5 % (11.9-15.9); WHITE BLOOD COUNT 14.1 K/mm3 (4.0-10.0)
[2019-05-09 08:31] LABS: ALBUMIN 2.7 g/dl (3.4-5.0); BILIRUBIN,TOTAL 0.7 mg/dL (0.2-1); BLOOD UREA NITROGEN 16.7 mg/dL (7-18); CALCIUM 8.7 mg/dL (8.5-10.1); CREATININE 1.1 mg/dL (0.55-1.3); POTASSIUM 4.3 mmol/L (3.5-5.1); TOT PROT 5.8 g/dl (6.4-8.2)
[2019-05-09] MEDS ORDERED: PT OWN MED DRAWER 7, Y5N ONE ×3 (09:02→20:50)
[2019-05-09] MEDS: TAMSULOSIN HCL 0.4 MG CAP PO SCH (09:07)
[2019-05-09] MEDS: CLOPIDOGREL BISULFATE 75 MG TABLET (FP) PO SCH (09:07)
[2019-05-09] MEDS: FERROUS SO4 325 MG TABLET (FP) PO SCH (09:07)
[2019-05-09] MEDS: METOPROLOL TARTRATE 50 MG TABLET (FP) PO SCH ×2 (09:07→21:09)
[2019-05-09] MEDS: POLYETHYLENE GLYCOL 3350 119 GM BTL PO SCH ×2 (09:07→21:10)
[2019-05-09] MEDS: FOLIC ACID 1 MG TABLET (FP) PO SCH (09:07)
[2019-05-09] MEDS: ASPIRIN COATED 81 MG TABLET.EC PO SCH (09:07)
[2019-05-09] MEDS: MUPIROCIN 2% TOPICAL OINTMENT FOR DECOLONIZATION NS SCH ×2 (09:08→21:10)
--- NOTE | 2019-05-09 09:08 | PN ---
Progress Note (short form) - Note Progress Note: POD #3 L2-L5 mayela/decompresison and fusion. Patient seen and examined at bedside c/o intermittent, shooting, right leg pain which is the same quality as his pre-op symptoms. He passed his TOV and his post void bladder scan revealed <2cc of retained urine. He is tolerating his diet and denies any CP, SOB, N/V, subjective fever or chills. Tmax 100.5 Vital Signs Temp 97.9 F 10 07:06 Pulse 82 10 07:06 Resp 20 05/09/19 07:06 BP 112/49 L 05/09/19 07:06 Pulse Ox 100 05/08/19 09:00 Intake & Output 05/08/19 05/08/19 05/09/19 11:59 23:59 11:59 Intake Total 300 400 200 Output Total 1400 1100 Balance -1100 -700 200 Intake: IV 0 0 saline lock 0 0 Oral 300 400 200 Output: Urine 1400 1100 Gardner 1400 1100 Other: Voiding Method Urinal Urinal Bowel Movement No No # Bowel Movements 1 CBC, BMP 10/11/22 07:40 10 07:40 GEN: A&0x3, NAD Unlabored resp on RA BACK: dressing c/d/i with surrounding tissue intact with no tracking erythema or active d/c. NEURO: B/L LE compartments soft, supple and non-tender to palpation. 5/5 dorsi/ plantar flexion with +2 DP pulses. Able to straight leg raise b/l legs, left higher than right. Problem List - Problems (1) S/P lumbar spinal fusion Assessment/Plan: POD #3 L2-L5 Laminectomies and osteotomies, with removal of foramenal disc L45 and L2-L5 fusion with pedicle screws and arthrodesis, insertion of cages, and correction of deformity. Intermittent low grade fevers with slight bump in WBCs most likely 2/2 to being sedentary. I stressed to him and his nurse again about the importance of getting OOB to chair and ambulating which will help with his pain and fevers. continue aspirin and plavix SITZ baths, tucks pads, f/u with colorectal as out patient Diet as tolerated, may discontinue IVF after tolerating a diet Encourage ambulation and OOB to chair for meals, TLSO brace ordered/PT Encourage IS D/c planning D/w Dr. Porter Code(s): Z98.1 - ARTHRODESIS STATUS
[2019-05-09] MEDS: PHENYLEPHRINE HCL/COCOA BUTTER SUPPOSITORY RC SCH ×2 (09:09→21:11)
--- NOTE | 2019-05-09 09:51 | PN ---
Progress Note (short form) - Note Progress Note: Continues to have RLE shooting pain. POD 3 post L2-L5 Laminectomies and osteotomies, with removal of foramenal disc L45 and L2- L5 fusion with pedicle screws and arthrodesis, insertion of cages, and correction of deformity Low grade fevers and Elevated WBC- noted. Vital Signs Temp 97.9 F 05/09/19 07:06 Pulse 82 05/09/19 07:06 Resp 20 05/09/19 07:06 BP 112/49 L 05/09/19 07:06 Pulse Ox 100 05/08/19 09:00 Intake & Output 05/08/19 05/08/19 05/09/19 11:59 23:59 11:59 Intake Total 300 400 200 Output Total 1400 1100 Balance -1100 -700 200 Intake: IV 0 0 saline lock 0 0 Oral 300 400 200 Output: Urine 1400 1100 Gardner 1400 1100 Other: Voiding Method Urinal Urinal Bowel Movement No No # Bowel Movements 1 Awake, alert NAD Lungs are Clear Heart S1S2 regular Abdomen soft, NT, active BS No CCE Laboratory Results - last 24 hr 05/09/19 05/09/19 07:40 07:40 WBC 14.1 H RBC 2.67 L Hgb 8.1 L Hct 24.0 L MCV 90.0 MCH 30.4 MCHC 33.8 RDW 14.5 Plt Count 114 L MPV 9.4 Absolute Neuts (auto) 11.8 H Neutrophils % 83.6 H Lymphocytes % 8.8 D Monocytes % 7.2 Eosinophils % 0.1 D Basophils % 0.3 Nucleated RBC % 0 Sodium 135 L Potassium 4.3 Chloride 102 Carbon Dioxide 26 Anion Gap 7 L BUN 16.7 Creatinine 1.1 Est GFR (CKD-EPI)AfAm 74.65 Est GFR (CKD-EPI)NonAf 64.41 Random Glucose 95 Calcium 8.7 Total Bilirubin 0.7 AST 23 ALT 26 Alkaline Phosphatase 52 Total Protein 5.8 L Albumin 2.7 L Current Active Problems Problem Status Onset Back pain Acute CAD (coronary artery disease) Acute DVT prophylaxis Acute Diabetes 1.5, managed as type 2 Acute HTN (hypertension) Acute Hemorrhoids that prolapse with straining and require manual replacement back inside anal canal Acute Intractable back pain Acute Osteoarthritis Acute Prophylactic measure Acute Prophylactic measure Acute Residual hemorrhoidal skin tags Acute S/P TAVR (transcatheter aortic valve replacement) Acute S/P lumbar spinal fusion Acute Urinary retention Low grade fever with leukocytosis. Anemia post op Acute Repeat CXR UA, C/S ID consult Pain management PT for ambulation. Problem List - Problems (1) CAD (coronary artery disease) Code(s): I25.10 - ATHSCL HEART DISEASE OF [place] CORONARY ARTERY W/O ANG PCTRS Qualifiers: Coronary Disease-Associated Artery/Lesion type: [place] artery [place] vs. transplanted heart: [place] heart Associated angina: without angina Qualified Code(s): I25.10 - Atherosclerotic heart disease of [place] coronary artery without angina pectoris (2) Intractable back pain Code(s): M54.9 - DORSALGIA, UNSPECIFIED (3) Diabetes 1.5, managed as type 2 Code(s): E13.9 - OTHER SPECIFIED DIABETES MELLITUS WITHOUT COMPLICATIONS (4) HTN (hypertension) Code(s): I10 - ESSENTIAL (PRIMARY) HYPERTENSION Qualifiers: Hypertension type: essential hypertension Qualified Code(s): I10 - Essential (primary) hypertension
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
--- NOTE | 2019-05-09 11:36 | PATH ---
Surgical Pathology Report Patient Name: TITI SULLIVAN Med. Rec. #: [id number] /Age/Gender: 1940 (Age: 78) / M Account: [id number] Location: [address] [place] [address]/[facility] Taken: 05/06/2019 Received: 05/07/2019 Reported: 05/09/2019 Physicians: Vishnu Jones M.D. Specimen(s) Received L4-L5 PARAVERTEBRAL DISC Clinical History Back pain Final Diagnosis L4-L5 PARAVERTEBRAL DISC, LAMINECTOMY: PORTION OF CARTILAGINOUS TISSUE WITH FOCAL DEGENERATIVE CHANGE. Electronically Signed Manav Mccullough M.D. Gross Description Received in formalin, labeled "L4-L5 paravertebral disc" is a portion of [place] irregular soft tissue measuring 2.0 x 0.3 x 0.6 cm. The specimen is bisected and entirely submitted one cassette. LARISSA/05/07/2019 ellie/05/07/2019
[2019-05-09] MEDS: HYDROCORTISONE 2.5% TOPICAL CREAM 30 GM TUBE TP SCH (12:55)
--- NOTE | 2019-05-09 16:29 | PN ---
Progress Note (short form) - Note Progress Note: s: no chest pain, palps, dizziness, dyspnea. feels tired Vital Signs Period Temp Pulse Resp BP Sys/López Pulse Ox Last 24 Hr 97.7 F-100.5 F 82-95 20-20 112-135/48-54 98 nad no jvd rrr s1s2 no mrg cta bl nl eff aao3 no le e/c/c abd nt nd pos bs no jaundice diaphoresis Current Medications Acetaminophen (Tylenol -) 650 mg PO Q6H [facility] Last Admin: 05/09/19 12:55 Dose: 650 mg Aspirin (Ecotrin -) 81 mg PO DAILY [facility] Last Admin: 05/09/19 09:07 Dose: 81 mg Atorvastatin Calcium (Lipitor -) 20 mg PO HS [facility] Last Admin: 05/08/19 21:05 Dose: 20 mg Bisacodyl (Dulcolax Suppository -) 10 mg RC PRN PRN PRN Reason: CONSTIPATION Clopidogrel Bisulfate (Plavix -) 75 mg PO DAILY [facility] Last Admin: 05/09/19 09:07 Dose: 75 mg [place] Butter/Phenylephrine (Preparation H Suppository) 1 each RC BID [facility] Last Admin: 05/09/19 09:09 Dose: 1 each Diphenhydramine HCl (Benadryl -) 25 mg PO Q6H PRN PRN Reason: FOR ITCHING Docusate Sodium (Colace -) 100 mg PO TID [facility] Last Admin: 05/09/19 13:08 Dose: 100 mg Ferrous Sulfate (Feosol -) 325 mg PO DAILY [facility] Last Admin: 05/09/19 09:07 Dose: 325 mg Folic Acid (Folic Acid -) 1 mg PO DAILY [facility] Last Admin: 05/09/19 09:07 Dose: 1 mg Gabapentin (Neurontin -) 300 mg PO TID [facility] Last Admin: 05/09/19 13:08 Dose: 300 mg Hydrocortisone (Anusol 2.5% Hc Cream -) 1 applic TP DAILY [facility] Last Admin: 05/09/19 12:55 Dose: 1 applic Metoprolol Tartrate (Lopressor -) 50 mg PO BID [facility] Last Admin: 05/09/19 09:07 Dose: 50 mg Miscellaneous (Lidoderm Patch Removal) 1 each MC DAILY@2200 [facility] Last Admin: 05/08/19 21:04 Dose: 1 each Mupirocin (Bactroban Ointment (For Decolonization) -) 1 applic NS BID [facility] Stop: 05/11/19 21:59 Last Admin: 05/09/19 09:08 Dose: Not Given Naloxone HCl (Narcan -) 0.4 mg IVPUSH ONCE PRN PRN Reason: Sedation Ondansetron HCl (Zofran Injection) 4 mg IVPUSH Q4H PRN PRN Reason: NAUSEA AND/OR VOMITING Oxycodone HCl (Roxicodone -) 5 mg PO Q4H PRN PRN Reason: PAIN LEVEL 1-5 Oxycodone HCl (Roxicodone -) 10 mg PO Q4H PRN PRN Reason: PAIN LEVEL 6-10 Last Admin: 05/09/19 11:57 Dose: 10 mg Polyethylene Glycol (Miralax (For Daily Use) -) 17 gm PO BID [facility] Last Admin: 05/09/19 09:07 Dose: 17 gm Promethazine HCl (Phenergan Injection -) 12.5 mg IVPB Q6H PRN PRN Reason: NAUSEA AND/OR VOMITING Senna (Senna -) 2 tab PO HS [facility] Last Admin: 05/08/19 21:05 Dose: 2 tab Tamsulosin HCl (Flomax -) 0.8 mg PO DAILY@0830 [facility] Last Admin: 05/09/19 09:07 Dose: 0.8 mg [place] Megan/Glycerin (Tucks Pads -) 1 pad TP PRN PRN PRN Reason: PAIN ecg: sr nl intervals no ischemic changes cxr: clear lungs a/p: 78 m hx htn, hld, cad s/p remote pci, tavr 02/2018, here with low back pain. back pain, post op s/p L2-L5 Laminectomies/Osteotomies/L2-L5 Fusion/Cage Insertion -manage per surgery htn: -cont raeann, bb hld: -cont statin cad, remote pci: -stable no angina no signs acs -cont bb, raeann, asa, statin, plavix - last PCI 2009, >1 year since TAVR as s/p tavr: -stable, no signs chf -cont aspirin, plavix
[2019-05-09 20:26] LABS: EPI CELLS 3.3 /HPF (0-5/HPF); HYALINE CASTS 23 /lpf (0-8); PH,URINE 5.5 (5.0-8.0); URINE APPEARANCE CLEAR; URINE BACTERIA 3.9 /hpf (NEGATIVE); URINE BILIRUBIN NEGATIVE (NEGATIVE); URINE COLOR YELLOW; URINE GLUCOSE (UA) NEGATIVE (NEGATIVE); URINE KETONE TRACE (NEGATIVE); URINE LEUK ESTERASE NEGATIVE (NEGATIVE); URINE NITRITE NEGATIVE (NEGATIVE); URINE PROTEIN 1+ (NEGATIVE); URINE RBC 1 /hpf (0-4); URINE UROBILINOGEN 0.2 mg/dL (0.2-1.0); URINE WBC 5 /hpf (0-5)
[2019-05-09] MEDS: SENNOSIDES 8.6MG TABLET (FP) PO SCH (21:09)
[2019-05-09] MEDS: ATORVASTATIN CA 20 MG TABLET (FP) PO SCH (21:10)
[2019-05-09] MEDS: LIDOCAINE PATCH REMOVAL MC SCH (21:10)
[2019-05-09] MEDS: WITCH HAZEL 50% (TUCKS) 40 PAD/JAR PAD TP PRN (21:11)
[2019-05-10] MEDS: oxyCODONE HCL 5 MG TABLET PO PRN ×3 (02:08→16:08)
[2019-05-10] MEDS: ACETAMINOPHEN 325 MG TABLET (FP) PO SCH ×4 (02:08→19:46)
[2019-05-10] MEDS: DOCUSATE SODIUM 100 MG CAPSULE (FP) PO SCH ×3 (05:57→21:33)
[2019-05-10] MEDS: GABAPENTIN 300 MG CAPSULE (FP) PO SCH ×3 (05:57→21:33)
[2019-05-10 08:27] LABS: BASO % 0.1 % (0-2.0); EOS % 0.5 % (0-4.5); HEMATOCRIT 21.8 % (35.4-49); HEMOGLOBIN 7.3 GM/dL (11.7-16.9); MCH 30.4 pg (25.7-33.7); MCHC 33.7 g/dl (32.0-35.9); MEAN CELL VOLUME 90.3 fl (80-96); MEAN PLT VOLUME 9.7 fl (7.5-11.1); MONO % 7.2 % (3.8-10.2); NEUT % 85.2 % (42.8-82.8); PLATELET COUNT 119 K/MM3 (134-434); RBC 2.41 M/mm3 (4.00-5.60); RDW 14.7 % (11.9-15.9); WHITE BLOOD COUNT 11.3 K/mm3 (4.0-10.0)
--- NOTE | 2019-05-10 08:31 | PN ---
Progress Note, Physician History of Present Illness: stable c/o of pain awaiting labs - Current Medication List Current Medications: Active Medications Acetaminophen (Tylenol -) 650 mg PO Q6H [facility] Last Admin: 05/10/19 06:56 Dose: 650 mg Aspirin (Ecotrin -) 81 mg PO DAILY [facility] Last Admin: 05/09/19 09:07 Dose: 81 mg Atorvastatin Calcium (Lipitor -) 20 mg PO HS [facility] Last Admin: 05/09/19 21:10 Dose: 20 mg Bisacodyl (Dulcolax Suppository -) 10 mg RC PRN PRN PRN Reason: CONSTIPATION Clopidogrel Bisulfate (Plavix -) 75 mg PO DAILY [facility] Last Admin: 05/09/19 09:07 Dose: 75 mg [place] Butter/Phenylephrine (Preparation H Suppository) 1 each RC BID [facility] Last Admin: 05/09/19 21:11 Dose: 1 each Diphenhydramine HCl (Benadryl -) 25 mg PO Q6H PRN PRN Reason: FOR ITCHING Docusate Sodium (Colace -) 100 mg PO TID [facility] Last Admin: 05/10/19 05:57 Dose: 100 mg Ferrous Sulfate (Feosol -) 325 mg PO DAILY [facility] Last Admin: 05/09/19 09:07 Dose: 325 mg Folic Acid (Folic Acid -) 1 mg PO DAILY [facility] Last Admin: 05/09/19 09:07 Dose: 1 mg Gabapentin (Neurontin -) 300 mg PO TID [facility] Last Admin: 05/10/19 05:57 Dose: 300 mg Hydrocortisone (Anusol 2.5% Hc Cream -) 1 applic TP DAILY [facility] Last Admin: 05/09/19 12:55 Dose: 1 applic Metoprolol Tartrate (Lopressor -) 50 mg PO BID [facility] Last Admin: 05/09/19 21:09 Dose: 50 mg Miscellaneous (Lidoderm Patch Removal) 1 each MC DAILY@2200 [facility] Last Admin: 05/09/19 21:10 Dose: 1 each Mupirocin (Bactroban Ointment (For Decolonization) -) 1 applic NS BID [facility] Stop: 05/11/19 21:59 Last Admin: 05/09/19 21:10 Dose: Not Given Naloxone HCl (Narcan -) 0.4 mg IVPUSH ONCE PRN PRN Reason: Sedation Ondansetron HCl (Zofran Injection) 4 mg IVPUSH Q4H PRN PRN Reason: NAUSEA AND/OR VOMITING Oxycodone HCl (Roxicodone -) 5 mg PO Q4H PRN PRN Reason: PAIN LEVEL 1-5 Oxycodone HCl (Roxicodone -) 10 mg PO Q4H PRN PRN Reason: PAIN LEVEL 6-10 Last Admin: 05/10/19 05:58 Dose: 10 mg Polyethylene Glycol (Miralax (For Daily Use) -) 17 gm PO BID [facility] Last Admin: 05/09/19 21:10 Dose: 17 gm Promethazine HCl (Phenergan Injection -) 12.5 mg IVPB Q6H PRN PRN Reason: NAUSEA AND/OR VOMITING Senna (Senna -) 2 tab PO HS [facility] Last Admin: 05/09/19 21:09 Dose: 2 tab Tamsulosin HCl (Flomax -) 0.8 mg PO DAILY@0830 [facility] Last Admin: 05/09/19 09:07 Dose: 0.8 mg [place] Megan/Glycerin (Tucks Pads -) 1 pad TP PRN PRN PRN Reason: PAIN Last Admin: 05/09/19 21:11 Dose: 1 pad - Objective Vital Signs: Vital Signs Temperature 100 F H 05/10/19 06:23 Pulse Rate 96 H 05/10/19 06:23 Respiratory Rate 20 05/10/19 06:23 Blood Pressure 137/62 05/10/19 06:23 O2 Sat by Pulse Oximetry (%) 98 05/09/19 09:00 Constitutional: Yes: Calm, Mild Distress Cardiovascular: Yes: S1, S2 Respiratory: Yes: Regular, CTA Bilaterally Gastrointestinal: Yes: Normal Bowel Sounds, Soft Musculoskeletal: Yes: WNL Extremities: Yes: Other Neurological: Yes: Alert, Oriented Psychiatric: Yes: Alert, Oriented Labs: INR, PTT INR 1.10 (0.83-1.09) H 05/06/19 14:51 Assessment/Plan Problem List - Problems (1) CAD (coronary artery disease) Code(s): I25.10 - ATHSCL HEART DISEASE OF [place] CORONARY ARTERY W/O ANG PCTRS Qualifiers: Coronary Disease-Associated Artery/Lesion type: [place] artery [place] vs. transplanted heart: [place] heart Associated angina: without angina Qualified Code(s): I25.10 - Atherosclerotic heart disease of [place] coronary artery without angina pectoris (2) Intractable back pain Code(s): M54.9 - DORSALGIA, UNSPECIFIED (3) Diabetes 1.5, managed as type 2 Code(s): E13.9 - OTHER SPECIFIED DIABETES [place] WITHOUT COMPLICATIONS (4) HTN (hypertension) Code(s): I10 - ESSENTIAL (PRIMARY) HYPERTENSION Qualifiers: Hypertension type: essential hypertension Qualified Code(s): I10 - Essential (primary) hypertension fever leukocytosis plan i am going to initiate anceff will await for cx report await for labs rest as per the team
[2019-05-10 08:34] LABS: ALBUMIN 2.2 g/dl (3.4-5.0); BILIRUBIN,TOTAL 0.6 mg/dL (0.2-1); BLOOD UREA NITROGEN 16.7 mg/dL (7-18); CALCIUM 8.4 mg/dL (8.5-10.1); POTASSIUM 4.1 mmol/L (3.5-5.1); TOT PROT 5.5 g/dl (6.4-8.2)
--- NOTE | 2019-05-10 08:57 | PN ---
Progress Note, Physician Chief Complaint: denies CP or SOB Denies dizziness or light headedness History of Present Illness: low grade fever - Current Medication List Current Medications: Active Medications Acetaminophen (Tylenol -) 650 mg PO Q6H [facility] Last Admin: 05/10/19 06:56 Dose: 650 mg Aspirin (Ecotrin -) 81 mg PO DAILY [facility] Last Admin: 05/09/19 09:07 Dose: 81 mg Atorvastatin Calcium (Lipitor -) 20 mg PO HS [facility] Last Admin: 05/09/19 21:10 Dose: 20 mg Bisacodyl (Dulcolax Suppository -) 10 mg RC PRN PRN PRN Reason: CONSTIPATION Clopidogrel Bisulfate (Plavix -) 75 mg PO DAILY [facility] Last Admin: 05/09/19 09:07 Dose: 75 mg [place] Butter/Phenylephrine (Preparation H Suppository) 1 each RC BID [facility] Last Admin: 05/09/19 21:11 Dose: 1 each Diphenhydramine HCl (Benadryl -) 25 mg PO Q6H PRN PRN Reason: FOR ITCHING Docusate Sodium (Colace -) 100 mg PO TID [facility] Last Admin: 05/10/19 05:57 Dose: 100 mg Ferrous Sulfate (Feosol -) 325 mg PO DAILY [facility] Last Admin: 05/09/19 09:07 Dose: 325 mg Folic Acid (Folic Acid -) 1 mg PO DAILY [facility] Last Admin: 05/09/19 09:07 Dose: 1 mg Gabapentin (Neurontin -) 300 mg PO TID [facility] Last Admin: 05/10/19 05:57 Dose: 300 mg Hydrocortisone (Anusol 2.5% Hc Cream -) 1 applic TP DAILY [facility] Last Admin: 05/09/19 12:55 Dose: 1 applic Metoprolol Tartrate (Lopressor -) 50 mg PO BID [facility] Last Admin: 05/09/19 21:09 Dose: 50 mg Miscellaneous (Lidoderm Patch Removal) 1 each MC DAILY@2200 [facility] Last Admin: 05/09/19 21:10 Dose: 1 each Mupirocin (Bactroban Ointment (For Decolonization) -) 1 applic NS BID [facility] Stop: 05/11/19 21:59 Last Admin: 05/09/19 21:10 Dose: Not Given Naloxone HCl (Narcan -) 0.4 mg IVPUSH ONCE PRN PRN Reason: Sedation Ondansetron HCl (Zofran Injection) 4 mg IVPUSH Q4H PRN PRN Reason: NAUSEA AND/OR VOMITING Oxycodone HCl (Roxicodone -) 5 mg PO Q4H PRN PRN Reason: PAIN LEVEL 1-5 Oxycodone HCl (Roxicodone -) 10 mg PO Q4H PRN PRN Reason: PAIN LEVEL 6-10 Last Admin: 05/10/19 05:58 Dose: 10 mg Polyethylene Glycol (Miralax (For Daily Use) -) 17 gm PO BID [facility] Last Admin: 05/09/19 21:10 Dose: 17 gm Promethazine HCl (Phenergan Injection -) 12.5 mg IVPB Q6H PRN PRN Reason: NAUSEA AND/OR VOMITING Senna (Senna -) 2 tab PO HS [facility] Last Admin: 05/09/19 21:09 Dose: 2 tab Tamsulosin HCl (Flomax -) 0.8 mg PO DAILY@0830 [facility] Last Admin: 05/09/19 09:07 Dose: 0.8 mg [place] Megan/Glycerin (Tucks Pads -) 1 pad TP PRN PRN PRN Reason: PAIN Last Admin: 05/09/19 21:11 Dose: 1 pad - Objective Vital Signs: Vital Signs Temperature 100 F H 05/10/19 06:23 Pulse Rate 96 H 05/10/19 06:23 Respiratory Rate 20 05/10/19 06:23 Blood Pressure 137/62 05/10/19 06:23 O2 Sat by Pulse Oximetry (%) 98 05/09/19 09:00 Constitutional: Yes: No Distress, Calm Cardiovascular: Yes: Regular Rate and Rhythm Respiratory: Yes: CTA Bilaterally (no wheezing.) Gastrointestinal: Yes: Soft Edema: No Neurological: Yes: Alert, Oriented ...Motor Strength: WNL Labs: CBC, BMP 05/10/19 07:30 05/10/19 07:30 INR, PTT INR 1.10 (0.83-1.09) H 05/06/19 14:51 Laboratory Tests 05/08/19 05/09/19 06:00 07:40 Hgb 8.4 L 8.1 L Assessment/Plan a/p: 78 m hx htn, hld, cad s/p remote pci, tavr 02/2018, here with low back pain. back pain, post op s/p L2-L5 Laminectomies/Osteotomies/L2-L5 Fusion/Cage Insertion -manage per surgery htn: controlled, hemodynamically stable. -cont raeann, bb hld: -cont statin cad, remote pci: -stable no angina no signs acs -cont bb, raeann, asa, statin, plavix - last PCI 2009, >1 year since TAVR as s/p tavr: -stable, no signs chf -cont aspirin, plavix- may be able to stop Plavix at this point as > one year post PCI and > 1 year post TAVR fever: -As pe PMD anemia: -As per PMD.
[2019-05-10] MEDS: TAMSULOSIN HCL 0.4 MG CAP PO SCH (10:04)
[2019-05-10] MEDS: MUPIROCIN 2% TOPICAL OINTMENT FOR DECOLONIZATION NS SCH (10:06)
[2019-05-10] MEDS: POLYETHYLENE GLYCOL 3350 119 GM BTL PO SCH ×2 (10:08→22:42)
[2019-05-10] MEDS: ASPIRIN COATED 81 MG TABLET.EC PO SCH (10:08)
[2019-05-10] MEDS: FOLIC ACID 1 MG TABLET (FP) PO SCH (10:08)
[2019-05-10] MEDS: FERROUS SO4 325 MG TABLET (FP) PO SCH (10:08)
[2019-05-10] MEDS: HYDROCORTISONE 2.5% TOPICAL CREAM 30 GM TUBE TP SCH (10:08)
[2019-05-10] MEDS: CLOPIDOGREL BISULFATE 75 MG TABLET (FP) PO SCH (10:08)
[2019-05-10] MEDS: METOPROLOL TARTRATE 50 MG TABLET (FP) PO SCH ×2 (10:13→21:33)
[2019-05-10] MEDS ORDERED: PT OWN MED DRAWER 7, Y5N ONE (10:18)
[2019-05-10] MEDS: PHENYLEPHRINE HCL/COCOA BUTTER SUPPOSITORY RC SCH ×2 (10:23→22:41)
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
[2019-05-10] MEDS: PANTOPRAZOLE 40 MG TABLET (FP) PO SCH (12:31)
[2019-05-10] MEDS ORDERED: DEXTROSE 5%-WATER - 50 ML IVPB ONE (15:50)
[2019-05-10] MEDS ORDERED: ceFAZolin SODIUM 1 GM VIAL ONE (15:50)
[2019-05-10] MEDS: LIDOCAINE 5% TOPICAL PATCH TP SCH (16:06)
[2019-05-10] MEDS: CEFAZOLIN 1 GM in DEXTROSE 5%-WATER - 50 ML IVPB SCH ×2 (16:09→18:18)
[2019-05-10] MEDS: ATORVASTATIN CA 20 MG TABLET (FP) PO SCH (21:32)
[2019-05-10] MEDS: SENNOSIDES 8.6MG TABLET (FP) PO SCH (21:33)
[2019-05-10] MEDS: LIDOCAINE PATCH REMOVAL MC SCH (21:45)
[2019-05-11] MEDS: ACETAMINOPHEN 325 MG TABLET (FP) PO SCH ×4 (00:33→20:06)
[2019-05-11] MEDS: oxyCODONE HCL 5 MG TABLET PO PRN ×2 (00:34→17:21)
[2019-05-11] MEDS ORDERED: DEXTROSE 5%-WATER - 50 ML IVPB ONE ×3 (01:56→14:16)
[2019-05-11] MEDS ORDERED: ceFAZolin SODIUM 1 GM VIAL ONE ×3 (01:56→14:16)
[2019-05-11] MEDS: CEFAZOLIN 1 GM in DEXTROSE 5%-WATER - 50 ML IVPB SCH ×3 (01:58→17:17)
[2019-05-11] MEDS ORDERED: PT OWN MED DRAWER 7, Y5N ONE (02:37)
[2019-05-11] MEDS: GABAPENTIN 300 MG CAPSULE (FP) PO SCH ×3 (05:36→21:20)
[2019-05-11] MEDS: DOCUSATE SODIUM 100 MG CAPSULE (FP) PO SCH ×3 (05:36→21:21)
--- NOTE | 2019-05-11 08:56 | PN ---
Progress Note, Physician History of Present Illness: spiked fever yesterday all cx send feels better wants to walk - Current Medication List Current Medications: Active Medications Acetaminophen (Tylenol -) 650 mg PO Q6H [facility] Last Admin: 05/11/19 00:33 Dose: 650 mg Aspirin (Ecotrin -) 81 mg PO DAILY [facility] Last Admin: 05/10/19 10:08 Dose: 81 mg Atorvastatin Calcium (Lipitor -) 20 mg PO HS [facility] Last Admin: 05/10/19 21:32 Dose: 20 mg Bisacodyl (Dulcolax Suppository -) 10 mg RC PRN PRN PRN Reason: CONSTIPATION Clopidogrel Bisulfate (Plavix -) 75 mg PO DAILY [facility] Last Admin: 05/10/19 10:08 Dose: 75 mg [place] Butter/Phenylephrine (Preparation H Suppository) 1 each RC BID [facility] Last Admin: 05/10/19 22:41 Dose: Not Given Diphenhydramine HCl (Benadryl -) 25 mg PO Q6H PRN PRN Reason: FOR ITCHING Docusate Sodium (Colace -) 100 mg PO TID [facility] Last Admin: 05/11/19 05:36 Dose: 100 mg Ferrous Sulfate (Feosol -) 325 mg PO DAILY [facility] Last Admin: 05/10/19 10:08 Dose: 325 mg Folic Acid (Folic Acid -) 1 mg PO DAILY [facility] Last Admin: 05/10/19 10:08 Dose: 1 mg Gabapentin (Neurontin -) 300 mg PO TID [facility] Last Admin: 05/11/19 05:36 Dose: 300 mg Hydrocortisone (Anusol 2.5% Hc Cream -) 1 applic TP DAILY [facility] Last Admin: 05/10/19 10:08 Dose: 1 applic Cefazolin Sodium 1 gm/ (Dextrose) 50 mls @ 100 mls/hr IVPB Q8H-IV [facility] Last Admin: 05/11/19 01:58 Dose: 100 mls/hr Lidocaine (Lidoderm Patch -) 2 patch TP DAILY [facility] Last Admin: 05/10/19 16:06 Dose: 2 patch Metoprolol Tartrate (Lopressor -) 50 mg PO BID [facility] Last Admin: 05/10/19 21:33 Dose: 50 mg Miscellaneous (Lidoderm Patch Removal) 2 each MC DAILY@2200 [facility] Last Admin: 05/10/19 21:45 Dose: Not Given Naloxone HCl (Narcan -) 0.4 mg IVPUSH ONCE PRN PRN Reason: Sedation Ondansetron HCl (Zofran Injection) 4 mg IVPUSH Q4H PRN PRN Reason: NAUSEA AND/OR VOMITING Oxycodone HCl (Roxicodone -) 5 mg PO Q4H PRN PRN Reason: PAIN LEVEL 1-5 Oxycodone HCl (Roxicodone -) 10 mg PO Q4H PRN PRN Reason: PAIN LEVEL 6-10 Last Admin: 05/11/19 00:34 Dose: 10 mg Pantoprazole Sodium (Protonix -) 40 mg PO DAILY [facility] Last Admin: 05/10/19 12:31 Dose: 40 mg Polyethylene Glycol (Miralax (For Daily Use) -) 17 gm PO BID [facility] Last Admin: 05/10/19 22:42 Dose: Not Given Promethazine HCl (Phenergan Injection -) 12.5 mg IVPB Q6H PRN PRN Reason: NAUSEA AND/OR VOMITING Senna (Senna -) 2 tab PO HS [facility] Last Admin: 05/10/19 21:33 Dose: 2 tab Tamsulosin HCl (Flomax -) 0.8 mg PO DAILY@0830 [facility] Last Admin: 05/10/19 10:04 Dose: 0.8 mg [place] Megan/Glycerin (Tucks Pads -) 1 pad TP PRN PRN PRN Reason: PAIN Last Admin: 05/09/19 21:11 Dose: 1 pad - Objective Vital Signs: Vital Signs Temperature 98 F 05/11/19 06:00 Pulse Rate 86 05/11/19 06:00 Respiratory Rate 18 05/11/19 06:00 Blood Pressure 120/52 L 05/11/19 06:00 O2 Sat by Pulse Oximetry (%) 98 05/10/19 21:00 Constitutional: Yes: No Distress, Calm Cardiovascular: Yes: S1, S2 Respiratory: Yes: Regular, CTA Bilaterally Gastrointestinal: Yes: Normal Bowel Sounds, Soft Musculoskeletal: Yes: WNL Extremities: Yes: WNL Wound/Incision: Yes: Dressing Dry and Intact Neurological: Yes: Alert, Oriented Psychiatric: Yes: Alert, Oriented Labs: CBC, BMP 05/10/19 07:30 05/10/19 07:30 INR, PTT INR 1.10 (0.83-1.09) H 05/06/19 14:51 Assessment/Plan Problem List - Problems (1) CAD (coronary artery disease) Code(s): I25.10 - ATHSCL HEART DISEASE OF [place] CORONARY ARTERY W/O ANG PCTRS Qualifiers: Coronary Disease-Associated Artery/Lesion type: [place] artery [place] vs. transplanted heart: [place] heart Associated angina: without angina Qualified Code(s): I25.10 - Atherosclerotic heart disease of [place] coronary artery without angina pectoris (2) Intractable back pain Code(s): M54.9 - DORSALGIA, UNSPECIFIED (3) Diabetes 1.5, managed as type 2 Code(s): E13.9 - OTHER SPECIFIED DIABETES MELLITUS WITHOUT COMPLICATIONS (4) HTN (hypertension) Code(s): I10 - ESSENTIAL (PRIMARY) HYPERTENSION Qualifiers: Hypertension type: essential hypertension Qualified Code(s): I10 - Essential (primary) hypertension fever leukocytosis plan continue abx wbc trending down monitor fevers await for all cx reports rest as per the team
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
[2019-05-11] MEDS: TAMSULOSIN HCL 0.4 MG CAP PO SCH (09:26)
[2019-05-11] MEDS: FERROUS SO4 325 MG TABLET (FP) PO SCH (09:26)
[2019-05-11] MEDS: METOPROLOL TARTRATE 50 MG TABLET (FP) PO SCH ×2 (09:26→21:20)
[2019-05-11] MEDS: PANTOPRAZOLE 40 MG TABLET (FP) PO SCH (09:27)
[2019-05-11] MEDS: FOLIC ACID 1 MG TABLET (FP) PO SCH (09:27)
[2019-05-11] MEDS: CLOPIDOGREL BISULFATE 75 MG TABLET (FP) PO SCH (09:27)
[2019-05-11] MEDS: ASPIRIN COATED 81 MG TABLET.EC PO SCH (09:29)
[2019-05-11] MEDS: LIDOCAINE 5% TOPICAL PATCH TP SCH (09:29)
[2019-05-11] MEDS: HYDROCORTISONE 2.5% TOPICAL CREAM 30 GM TUBE TP SCH (09:29)
[2019-05-11] MEDS: PHENYLEPHRINE HCL/COCOA BUTTER SUPPOSITORY RC SCH ×2 (09:30→22:34)
[2019-05-11] MEDS: POLYETHYLENE GLYCOL 3350 119 GM BTL PO SCH ×2 (09:30→21:45)
[2019-05-11 09:52] LABS: BASO % 0.2 % (0-2.0); HEMATOCRIT 21.5 % (35.4-49); HEMOGLOBIN 7.3 GM/dL (11.7-16.9); LYMPH % 6.6 % (8-40); MCH 30.5 pg (25.7-33.7); MCHC 33.9 g/dl (32.0-35.9); MEAN CELL VOLUME 89.8 fl (80-96); MEAN PLT VOLUME 9.1 fl (7.5-11.1); MONO % 6.4 % (3.8-10.2); NEUT % 85.8 % (42.8-82.8); PLATELET COUNT 161 K/MM3 (134-434); RBC 2.39 M/mm3 (4.00-5.60); RDW 14.6 % (11.9-15.9)
[2019-05-11 10:33] LABS: ALBUMIN 2.3 g/dl (3.4-5.0); BILIRUBIN,TOTAL 0.6 mg/dL (0.2-1); BLOOD UREA NITROGEN 17.4 mg/dL (7-18); CALCIUM 8.3 mg/dL (8.5-10.1); MAGNESIUM 1.9 mg/dL (1.8-2.4); POTASSIUM 3.7 mmol/L (3.5-5.1); TOT PROT 5.7 g/dl (6.4-8.2)
[2019-05-11] MEDS: ATORVASTATIN CA 20 MG TABLET (FP) PO SCH (21:20)
[2019-05-11] MEDS: LIDOCAINE PATCH REMOVAL MC SCH (21:44)
[2019-05-11] MEDS: SENNOSIDES 8.6MG TABLET (FP) PO SCH (22:38)
[2019-05-12] MEDS ORDERED: PT OWN MED DRAWER 7, Y5N ONE ×2 (00:29→09:48)
[2019-05-12] MEDS ORDERED: ceFAZolin SODIUM 1 GM VIAL ONE ×3 (02:50→18:22)
[2019-05-12] MEDS ORDERED: DEXTROSE 5%-WATER - 50 ML IVPB ONE ×3 (02:51→18:23)
[2019-05-12] MEDS: CEFAZOLIN 1 GM in DEXTROSE 5%-WATER - 50 ML IVPB SCH ×3 (03:01→18:44)
[2019-05-12] MEDS: ACETAMINOPHEN 325 MG TABLET (FP) PO SCH ×4 (03:05→18:45)
[2019-05-12] MEDS: DOCUSATE SODIUM 100 MG CAPSULE (FP) PO SCH ×3 (06:15→21:35)
[2019-05-12] MEDS: GABAPENTIN 300 MG CAPSULE (FP) PO SCH ×3 (06:15→21:35)
[2019-05-12] MEDS: oxyCODONE HCL 5 MG TABLET PO PRN ×3 (06:18→21:35)
[2019-05-12] MEDS ORDERED: MAGNESIUM HYDROX 2400MG/30ML ORAL SUSPENSION 30 ML CUP PO ONE (08:12)
--- NOTE | 2019-05-12 08:19 | PN ---
Progress Note, Physician Chief Complaint: Today AM confused, received PRBC. T improved , WBC down to 9K. History of Present Illness: PMH EXTERNAL HEMORRHOIDS. OLD LEFT rib fractures LOW Back pain radiating down RLE. NEUROGENIC CLAUDICATION. WEIGHT LOSS 20 LBS. DM type 2 STABLE ANGINA ANGIOPLASTY 1989 [facility] STENTS X3 2006 ANDS X3 2010 [facility] in the past RCA/LAD/LCX , TAVR 02/26/2018 IN [place]. ALEX HTN HLD SCLERODERMA. REYNAUD'S SYNDROME. RIH REPAIR 1957 PVD, LLE STENT.CLAUDICATION. CRI/CKD 3, BPH TINNITUS - Current Medication List Current Medications: Active Medications Acetaminophen (Tylenol -) 650 mg PO Q6H [facility] Last Admin: 05/12/19 03:05 Dose: 650 mg Aspirin (Ecotrin -) 81 mg PO DAILY [facility] Last Admin: 05/11/19 09:29 Dose: 81 mg Atorvastatin Calcium (Lipitor -) 20 mg PO HS [facility] Last Admin: 05/11/19 21:20 Dose: 20 mg Bisacodyl (Dulcolax Suppository -) 10 mg RC PRN PRN PRN Reason: CONSTIPATION Clopidogrel Bisulfate (Plavix -) 75 mg PO DAILY [facility] Last Admin: 05/11/19 09:27 Dose: 75 mg [place] Butter/Phenylephrine (Preparation H Suppository) 1 each RC BID [facility] Last Admin: 05/11/19 22:34 Dose: 1 each Diphenhydramine HCl (Benadryl -) 25 mg PO Q6H PRN PRN Reason: FOR ITCHING Docusate Sodium (Colace -) 100 mg PO TID [facility] Last Admin: 05/12/19 06:15 Dose: 100 mg Ferrous Sulfate (Feosol -) 325 mg PO DAILY [facility] Last Admin: 05/11/19 09:26 Dose: 325 mg Folic Acid (Folic Acid -) 1 mg PO DAILY [facility] Last Admin: 05/11/19 09:27 Dose: 1 mg Gabapentin (Neurontin -) 300 mg PO TID [facility] Last Admin: 05/12/19 06:15 Dose: 300 mg Hydrocortisone (Anusol 2.5% Hc Cream -) 1 applic TP DAILY [facility] Last Admin: 05/11/19 09:29 Dose: 1 applic Cefazolin Sodium 1 gm/ (Dextrose) 50 mls @ 100 mls/hr IVPB Q8H-IV [facility] Last Admin: 05/12/19 03:01 Dose: 100 mls/hr Lidocaine (Lidoderm Patch -) 2 patch TP DAILY [facility] Last Admin: 05/11/19 09:29 Dose: 2 patch Magnesium Hydroxide (Milk Of Magnesia -) 30 ml PO ONCE ONE Stop: 05/12/19 08:13 Metoprolol Tartrate (Lopressor -) 50 mg PO BID [facility] Last Admin: 05/11/19 21:20 Dose: 50 mg Miscellaneous (Lidoderm Patch Removal) 2 each MC DAILY@2200 [facility] Last Admin: 05/11/19 21:44 Dose: Not Given Naloxone HCl (Narcan -) 0.4 mg IVPUSH ONCE PRN PRN Reason: Sedation Ondansetron HCl (Zofran Injection) 4 mg IVPUSH Q4H PRN PRN Reason: NAUSEA AND/OR VOMITING Oxycodone HCl (Roxicodone -) 5 mg PO Q4H PRN PRN Reason: PAIN LEVEL 1-5 Oxycodone HCl (Roxicodone -) 10 mg PO Q4H PRN PRN Reason: PAIN LEVEL 6-10 Last Admin: 05/12/19 06:18 Dose: 10 mg Pantoprazole Sodium (Protonix -) 40 mg PO DAILY [facility] Last Admin: 05/11/19 09:27 Dose: 40 mg Polyethylene Glycol (Miralax (For Daily Use) -) 17 gm PO BID [facility] Last Admin: 05/11/19 21:45 Dose: 17 gm Promethazine HCl (Phenergan Injection -) 12.5 mg IVPB Q6H PRN PRN Reason: NAUSEA AND/OR VOMITING Senna (Senna -) 2 tab PO HS [facility] Last Admin: 05/11/19 22:38 Dose: Not Given Tamsulosin HCl (Flomax -) 0.8 mg PO DAILY@0830 [facility] Last Admin: 05/11/19 09:26 Dose: 0.8 mg [place] Megan/Glycerin (Tucks Pads -) 1 pad TP PRN PRN PRN Reason: PAIN Last Admin: 05/09/19 21:11 Dose: 1 pad - Objective Vital Signs: Vital Signs Temperature 98.4 F 05/12/19 06:00 Pulse Rate 82 05/12/19 06:00 Respiratory Rate 16 05/12/19 06:00 Blood Pressure 138/62 05/12/19 06:00 O2 Sat by Pulse Oximetry (%) 98 05/11/19 21:00 Constitutional: Yes: Anxious, Moderate Distress Eyes: Yes: Conjunctiva Clear, EOM Intact HENT: Yes: Atraumatic, Normocephalic Neck: Yes: Supple, Trachea Midline Cardiovascular: Yes: Regular Rate and Rhythm, S1, S2 Respiratory: Yes: Regular, CTA Bilaterally Gastrointestinal: Yes: Normal Bowel Sounds, Soft ...Rectal Exam: Yes: Deferred Genitourinary: No: Anuria Breast(s): Yes: WNL Extremities: Yes: Other (RLE pain) Wound/Incision: Yes: Clean/Dry Neurological: Yes: Alert, Confusion. No: Aphasia ...Motor Strength: WNL Psychiatric: Yes: Alert, Oriented (x2) Labs: CBC, BMP 05/11/19 09:30 05/11/19 09:30 INR, PTT INR 1.10 (0.83-1.09) H 05/06/19 14:51 Problem List - Problems (1) CAD (coronary artery disease) Assessment/Plan: CONTINUE STATINS, PLAVIX/ASA CARDIOLOGY F/U. Code(s): I25.10 - ATHSCL HEART DISEASE OF [place] CORONARY ARTERY W/O ANG PCTRS Qualifiers: Coronary Disease-Associated Artery/Lesion type: [place] artery [place] vs. transplanted heart: [place] heart Associated angina: without angina Qualified Code(s): I25.10 - Atherosclerotic heart disease of [place] coronary artery without angina pectoris (2) Intractable back pain Assessment/Plan: S/P LS LAMINECTOMY. Discussed with surgical team Pending rehab post op continue pain management PT/OOB Code(s): M54.9 - DORSALGIA, UNSPECIFIED (3) Diabetes 1.5, managed as type 2 Assessment/Plan: bgm -controlled Code(s): E13.9 - OTHER SPECIFIED DIABETES MELLITUS WITHOUT COMPLICATIONS (4) HTN (hypertension) Assessment/Plan: Conbtrolled Goal < 140/80P Code(s): I10 - ESSENTIAL (PRIMARY) HYPERTENSION Qualifiers: Hypertension type: essential hypertension Qualified Code(s): I10 - Essential (primary) hypertension (5) Constipation due to opioid therapy Assessment/Plan: MOM Continue Miralax, Bisacodyl Problems reviewed: Yes Code(s): K59.03 - DRUG INDUCED CONSTIPATION; T40.2X5A - ADVERSE EFFECT OF OTHER OPIOIDS, INITIAL ENCOUNTER
--- NOTE | 2019-05-12 08:53 | PN ---
Progress Note (short form) - Note Progress Note: POD #6 L2-L5 mayela/decompresison and fusion. Patient seen and examined at bedside right leg pain is unchanged which is the same quality as his pre-op symptoms. He received 1 unit of PRBC yesterday. He is unhappy and would like to go to rehab. He is tolerating his diet and denies any CP, SOB, N/V, subjective fever or chills. Tmax 100.0. He is being treated for a UTI. Vital Signs Temp 98.4 F 05/12/19 06:00 Pulse 82 05/12/19 06:00 Resp 16 05/12/19 06:00 BP 138/62 05/12/19 06:00 Pulse Ox 98 05/11/19 21:00 Intake & Output 05/11/19 05/11/19 05/12/19 11:59 23:59 11:59 Intake Total 350 650 700 Output Total 400 1950 Balance -50 -1300 700 Intake: IV 50 S/L 50 IVPB 50 50 Oral 300 600 300 Packed Cells 350 Output: Urine 400 1950 Gardner 1000 Void 400 950 Other: Voiding Method Urinal Urinal # Unmeasured Voids Void 1 1 Bowel Movement No Yes No # Bowel Movements 1 CBC, BMP 05/11/19 09:30 05/11/19 09:30 GEN: A&0x3, NAD Unlabored resp on RA BACK: incision c/d/i with surrounding tissue intact with no tracking erythema or active d/c. NEURO: B/L LE compartments soft, supple and non-tender to palpation. 5/5 dorsi/ plantar flexion with +2 DP pulses. Able to straight leg raise b/l legs, left higher than right. Problem List - Problems (1) S/P lumbar spinal fusion Assessment/Plan: POD #6 L2-L5 Laminectomies and osteotomies, with removal of foramenal disc L45 and L2-L5 fusion with pedicle screws and arthrodesis, insertion of cages, and correction of deformity. Intermittent low grade fevers with UTI and post op anemia currently asymptomatic. I stressed to him and his nurse again about the importance of getting OOB to chair and ambulating which will help with his pain and fevers. continue aspirin and plavix SITZ baths, tucks pads, f/u with colorectal as out patient Diet as tolerated, may discontinue IVF after tolerating a diet Encourage ambulation and OOB to chair for meals, TLSO brace ordered/PT Encourage IS D/c planning to rehab D/w Dr. Porter Code(s): Z98.1 - ARTHRODESIS STATUS
[2019-05-12] MEDS: FERROUS SO4 325 MG TABLET (FP) PO SCH (09:50)
[2019-05-12] MEDS: PANTOPRAZOLE 40 MG TABLET (FP) PO SCH (09:50)
[2019-05-12] MEDS: METOPROLOL TARTRATE 50 MG TABLET (FP) PO SCH ×2 (09:51→21:35)
[2019-05-12] MEDS: LIDOCAINE 5% TOPICAL PATCH TP SCH (09:51)
[2019-05-12] MEDS: CLOPIDOGREL BISULFATE 75 MG TABLET (FP) PO SCH (09:51)
[2019-05-12] MEDS: FOLIC ACID 1 MG TABLET (FP) PO SCH (09:52)
[2019-05-12] MEDS: ASPIRIN COATED 81 MG TABLET.EC PO SCH (09:52)
[2019-05-12] MEDS: TAMSULOSIN HCL 0.4 MG CAP PO SCH (09:53)
[2019-05-12] MEDS: POLYETHYLENE GLYCOL 3350 119 GM BTL PO SCH ×2 (09:54→21:37)
[2019-05-12] MEDS: WITCH HAZEL 50% (TUCKS) 40 PAD/JAR PAD TP PRN (09:54)
[2019-05-12] MEDS: HYDROCORTISONE 2.5% TOPICAL CREAM 30 GM TUBE TP SCH (09:54)
[2019-05-12] MEDS: PHENYLEPHRINE HCL/COCOA BUTTER SUPPOSITORY RC SCH ×3 (09:55→21:44)
--- NOTE | 2019-05-12 10:31 | PN ---
Progress Note, Physician History of Present Illness: stable no new issues low grade fever - Current Medication List Current Medications: Active Medications Acetaminophen (Tylenol -) 650 mg PO Q6H [facility] Last Admin: 05/12/19 09:53 Dose: 650 mg Aspirin (Ecotrin -) 81 mg PO DAILY [facility] Last Admin: 05/12/19 09:52 Dose: 81 mg Atorvastatin Calcium (Lipitor -) 20 mg PO HS [facility] Last Admin: 05/11/19 21:20 Dose: 20 mg Bisacodyl (Dulcolax Suppository -) 10 mg RC PRN PRN PRN Reason: CONSTIPATION Clopidogrel Bisulfate (Plavix -) 75 mg PO DAILY [facility] Last Admin: 05/12/19 09:51 Dose: 75 mg [place] Butter/Phenylephrine (Preparation H Suppository) 1 each RC BID [facility] Last Admin: 05/12/19 10:07 Dose: Not Given Diphenhydramine HCl (Benadryl -) 25 mg PO Q6H PRN PRN Reason: FOR ITCHING Docusate Sodium (Colace -) 100 mg PO TID [facility] Last Admin: 05/12/19 06:15 Dose: 100 mg Ferrous Sulfate (Feosol -) 325 mg PO DAILY [facility] Last Admin: 05/12/19 09:50 Dose: 325 mg Folic Acid (Folic Acid -) 1 mg PO DAILY [facility] Last Admin: 05/12/19 09:52 Dose: 1 mg Gabapentin (Neurontin -) 300 mg PO TID [facility] Last Admin: 05/12/19 06:15 Dose: 300 mg Hydrocortisone (Anusol 2.5% Hc Cream -) 1 applic TP DAILY [facility] Last Admin: 05/12/19 09:54 Dose: 1 applic Cefazolin Sodium 1 gm/ (Dextrose) 50 mls @ 100 mls/hr IVPB Q8H-IV [facility] Last Admin: 05/12/19 09:52 Dose: 100 mls/hr Lidocaine (Lidoderm Patch -) 2 patch TP DAILY [facility] Last Admin: 05/12/19 09:51 Dose: 2 patch Metoprolol Tartrate (Lopressor -) 50 mg PO BID [facility] Last Admin: 05/12/19 09:51 Dose: 50 mg Miscellaneous (Lidoderm Patch Removal) 2 each MC DAILY@2200 [facility] Last Admin: 05/11/19 21:44 Dose: Not Given Naloxone HCl (Narcan -) 0.4 mg IVPUSH ONCE PRN PRN Reason: Sedation Ondansetron HCl (Zofran Injection) 4 mg IVPUSH Q4H PRN PRN Reason: NAUSEA AND/OR VOMITING Oxycodone HCl (Roxicodone -) 5 mg PO Q4H PRN PRN Reason: PAIN LEVEL 1-5 Pantoprazole Sodium (Protonix -) 40 mg PO DAILY [facility] Last Admin: 05/12/19 09:50 Dose: 40 mg Polyethylene Glycol (Miralax (For Daily Use) -) 17 gm PO BID [facility] Last Admin: 05/12/19 09:54 Dose: 17 gm Promethazine HCl (Phenergan Injection -) 12.5 mg IVPB Q6H PRN PRN Reason: NAUSEA AND/OR VOMITING Senna (Senna -) 2 tab PO HS [facility] Last Admin: 05/11/19 22:38 Dose: Not Given Tamsulosin HCl (Flomax -) 0.8 mg PO DAILY@0830 [facility] Last Admin: 05/12/19 09:53 Dose: 0.8 mg Witch Megan/Glycerin (Tucks Pads -) 1 pad TP PRN PRN PRN Reason: PAIN Last Admin: 05/12/19 09:54 Dose: 1 pad - Objective Vital Signs: Vital Signs Temperature 98.4 F 05/12/19 06:00 Pulse Rate 82 05/12/19 06:00 Respiratory Rate 16 05/12/19 06:00 Blood Pressure 138/62 05/12/19 06:00 O2 Sat by Pulse Oximetry (%) 98 05/11/19 21:00 Constitutional: Yes: No Distress, Calm Cardiovascular: Yes: S1, S2 Respiratory: Yes: Regular, CTA Bilaterally Gastrointestinal: Yes: Normal Bowel Sounds, Soft Musculoskeletal: Yes: WNL Extremities: Yes: WNL Wound/Incision: Yes: Dressing Dry and Intact Neurological: Yes: Alert, Oriented Psychiatric: Yes: Alert, Oriented Labs: CBC, BMP 05/11/19 09:30 05/11/19 09:30 INR, PTT INR 1.10 (0.83-1.09) H 05/06/19 14:51 Assessment/Plan Problem List - Problems (1) CAD (coronary artery disease) Code(s): I25.10 - ATHSCL HEART DISEASE OF [place] CORONARY ARTERY W/O ANG PCTRS Qualifiers: Coronary Disease-Associated Artery/Lesion type: [place] artery [place] vs. transplanted heart: [place] heart Associated angina: without angina Qualified Code(s): I25.10 - Atherosclerotic heart disease of [place] coronary artery without angina pectoris (2) Intractable back pain Code(s): M54.9 - DORSALGIA, UNSPECIFIED (3) Diabetes 1.5, managed as type 2 Code(s): E13.9 - OTHER SPECIFIED DIABETES MELLITUS WITHOUT COMPLICATIONS (4) HTN (hypertension) Code(s): I10 - ESSENTIAL (PRIMARY) HYPERTENSION Qualifiers: Hypertension type: essential hypertension Qualified Code(s): I10 - Essential (primary) hypertension fever leukocytosis plan continue abx wbc normal monitor fevers if afebrile will switch to oral tomorrow
[2019-05-12 12:35] LABS: BASO % 0.2 % (0-2.0); EOS % 0.5 % (0-4.5); HEMATOCRIT 25.5 % (35.4-49); HEMOGLOBIN 8.9 GM/dL (11.7-16.9); LYMPH % 4.4 % (8-40); MCH 30.5 pg (25.7-33.7); MCHC 34.7 g/dl (32.0-35.9); MEAN CELL VOLUME 87.8 fl (80-96); MEAN PLT VOLUME 8.9 fl (7.5-11.1); MONO % 7.5 % (3.8-10.2); NEUT % 87.4 % (42.8-82.8); PLATELET COUNT 199 K/MM3 (134-434); RDW 15.1 % (11.9-15.9); WHITE BLOOD COUNT 9.5 K/mm3 (4.0-10.0)
[2019-05-12 13:17] LABS: ALBUMIN 2.2 g/dl (3.4-5.0); BILIRUBIN,TOTAL 0.9 mg/dL (0.2-1); BLOOD UREA NITROGEN 14.3 mg/dL (7-18); CALCIUM 8.3 mg/dL (8.5-10.1); CREATININE 0.9 mg/dL (0.55-1.3); MAGNESIUM 1.8 mg/dL (1.8-2.4); TOT PROT 5.7 g/dl (6.4-8.2)
--- NOTE | 2019-05-12 16:20 | PN ---
Progress Note (short form) - Note Progress Note: s: no chest pain, palps, dizziness, dyspnea Current Medications Acetaminophen (Tylenol -) 650 mg PO Q6H [facility] Last Admin: 05/12/19 14:52 Dose: 650 mg Aspirin (Ecotrin -) 81 mg PO DAILY [facility] Last Admin: 05/12/19 09:52 Dose: 81 mg Atorvastatin Calcium (Lipitor -) 20 mg PO HS [facility] Last Admin: 05/11/19 21:20 Dose: 20 mg Bisacodyl (Dulcolax Suppository -) 10 mg RC PRN PRN PRN Reason: CONSTIPATION Clopidogrel Bisulfate (Plavix -) 75 mg PO DAILY [facility] Last Admin: 05/12/19 09:51 Dose: 75 mg [place] Butter/Phenylephrine (Preparation H Suppository) 1 each RC BID [facility] Last Admin: 05/12/19 10:07 Dose: Not Given Diphenhydramine HCl (Benadryl -) 25 mg PO Q6H PRN PRN Reason: FOR ITCHING Docusate Sodium (Colace -) 100 mg PO TID [facility] Last Admin: 05/12/19 14:53 Dose: 100 mg Ferrous Sulfate (Feosol -) 325 mg PO DAILY [facility] Last Admin: 05/12/19 09:50 Dose: 325 mg Folic Acid (Folic Acid -) 1 mg PO DAILY [facility] Last Admin: 05/12/19 09:52 Dose: 1 mg Gabapentin (Neurontin -) 300 mg PO TID [facility] Last Admin: 05/12/19 14:52 Dose: 300 mg Hydrocortisone (Anusol 2.5% Hc Cream -) 1 applic TP DAILY [facility] Last Admin: 05/12/19 09:54 Dose: 1 applic Cefazolin Sodium 1 gm/ (Dextrose) 50 mls @ 100 mls/hr IVPB Q8H-IV [facility] Last Admin: 05/12/19 09:52 Dose: 100 mls/hr Lidocaine (Lidoderm Patch -) 2 patch TP DAILY [facility] Last Admin: 05/12/19 09:51 Dose: 2 patch Metoprolol Tartrate (Lopressor -) 50 mg PO BID [facility] Last Admin: 05/12/19 09:51 Dose: 50 mg Miscellaneous (Lidoderm Patch Removal) 2 each MC DAILY@2200 [facility] Last Admin: 05/11/19 21:44 Dose: Not Given Naloxone HCl (Narcan -) 0.4 mg IVPUSH ONCE PRN PRN Reason: Sedation Ondansetron HCl (Zofran Injection) 4 mg IVPUSH Q4H PRN PRN Reason: NAUSEA AND/OR VOMITING Oxycodone HCl (Roxicodone -) 5 mg PO Q4H PRN PRN Reason: PAIN LEVEL 1-5 Last Admin: 05/12/19 14:54 Dose: 5 mg Pantoprazole Sodium (Protonix -) 40 mg PO DAILY [facility] Last Admin: 05/12/19 09:50 Dose: 40 mg Polyethylene Glycol (Miralax (For Daily Use) -) 17 gm PO BID [facility] Last Admin: 05/12/19 09:54 Dose: 17 gm Promethazine HCl (Phenergan Injection -) 12.5 mg IVPB Q6H PRN PRN Reason: NAUSEA AND/OR VOMITING Senna (Senna -) 2 tab PO HS [facility] Last Admin: 05/11/19 22:38 Dose: Not Given Tamsulosin HCl (Flomax -) 0.8 mg PO DAILY@0830 [facility] Last Admin: 05/12/19 09:53 Dose: 0.8 mg Witch Megan/Glycerin (Tucks Pads -) 1 pad TP PRN PRN PRN Reason: PAIN Last Admin: 05/12/19 09:54 Dose: 1 pad Vital Signs Period Temp Pulse Resp BP Sys/López Pulse Ox Last 24 Hr 98.4 F-100.0 F 82-111 16-20 138-154/54-79 98-100 Constitutional: Yes: No Distress, Calm Cardiovascular: Yes: Regular Rate and Rhythm Respiratory: Yes: CTA Bilaterally (no wheezing.) Gastrointestinal: Yes: Soft Edema: No Neurological: Yes: Alert, Oriented no jaundice, diaphoresis not agitated Assessment/Plan a/p: 78 m hx htn, hld, cad s/p remote pci, tavr 02/2018, here with low back pain. back pain, post op s/p L2-L5 Laminectomies/Osteotomies/L2-L5 Fusion/Cage Insertion -manage per surgery htn: controlled, hemodynamically stable. 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
[2019-05-12] MEDS: SENNOSIDES 8.6MG TABLET (FP) PO SCH (21:35)
[2019-05-12] MEDS: ATORVASTATIN CA 20 MG TABLET (FP) PO SCH (21:35)
[2019-05-12] MEDS: LIDOCAINE PATCH REMOVAL MC SCH (21:37)
[2019-05-13] MEDS ORDERED: DEXTROSE 5%-WATER - 50 ML IVPB ONE ×4 (02:05→17:46)
[2019-05-13] MEDS ORDERED: ceFAZolin SODIUM 1 GM VIAL ONE ×2 (02:05→09:31)
[2019-05-13] MEDS: ACETAMINOPHEN 325 MG TABLET (FP) PO SCH ×2 (02:16→08:25)
[2019-05-13] MEDS: CEFAZOLIN 1 GM in DEXTROSE 5%-WATER - 50 ML IVPB SCH ×2 (02:16→09:34)
[2019-05-13] MEDS: oxyCODONE HCL 5 MG TABLET PO PRN ×2 (04:10→14:50)
[2019-05-13] MEDS: DOCUSATE SODIUM 100 MG CAPSULE (FP) PO SCH ×3 (05:43→23:39)
[2019-05-13] MEDS: GABAPENTIN 300 MG CAPSULE (FP) PO SCH ×3 (05:43→23:39)
[2019-05-13] MEDS: TAMSULOSIN HCL 0.4 MG CAP PO SCH (08:25)
--- NOTE | 2019-05-13 08:34 | PN ---
Progress Note (short form) - Note Progress Note: Fever 103.2 last night. Vital Signs (72 hours) 05/10/19 05/10/19 05/10/19 09:00 10:00 14:00 Temperature 98.8 F 103.4 F H Pulse Rate 99 H 99 H Respiratory 20 20 20 Rate Blood Pressure 127/62 134/56 L O2 Sat by Pulse 98 Oximetry (%) 05/10/19 05/10/19 05/10/19 16:15 20:00 21:00 Temperature 100 F H 98.4 F Pulse Rate 102 H 88 Respiratory 18 18 Rate Blood Pressure 96/43 L 112/51 L O2 Sat by Pulse 98 Oximetry (%) 05/11/19 05/11/19 05/11/19 00:00 06:00 09:00 Temperature 98.4 F 98 F Pulse Rate 98 H 86 Respiratory 18 18 20 Rate Blood Pressure 130/61 120/52 L O2 Sat by Pulse 98 Oximetry (%) 05/11/19 05/11/19 05/11/19 10:00 14:00 17:46 Temperature 98.6 F 98.2 F 100.0 F H Pulse Rate 100 H 101 H 92 H Respiratory 20 20 20 Rate Blood Pressure 138/61 126/60 139/64 O2 Sat by Pulse Oximetry (%) 05/11/19 05/11/19 05/12/19 20:08 21:00 06:00 Temperature 98.5 F 98.4 F Pulse Rate 88 82 Respiratory 18 16 Rate Blood Pressure 142/54 L 138/62 O2 Sat by Pulse 98 Oximetry (%) 05/12/19 05/12/19 05/12/19 09:00 15:00 17:05 Temperature 99.8 F H 98.9 F 98.9 F Pulse Rate 111 H 94 H 99 H Respiratory 20 20 20 Rate Blood Pressure 154/79 145/72 140/58 L O2 Sat by Pulse 100 Oximetry (%) 05/13/19 05/13/19 05/13/19 02:12 03:11 06:27 Temperature 103.2 F H 99.8 F H 98.4 F Pulse Rate 96 H 93 H Respiratory 20 20 Rate Blood Pressure 141/62 O2 Sat by Pulse Oximetry (%) No new complaints. BM today. Awake, alert NAD. Neck supple Lungs are Clear. Heart S1S2 regular. Abdomen soft, NT Rectal hemorrhoids. Ext no CCE SCD Imp fevers up to 103.2 Current Active Problems Problem Status Onset Anemia Acute Back pain Acute CAD (coronary artery disease) Acute Constipation due to opioid therapy Acute DVT prophylaxis Acute Diabetes 1.5, managed as type 2 Acute HTN (hypertension) Acute Hemorrhoids that prolapse with straining and require manual replacement back inside anal canal Acute Intractable back pain Acute Leukocytosis Acute Osteoarthritis Acute Prophylactic measure Acute Prophylactic measure Acute Residual hemorrhoidal skin tags Acute S/P TAVR (transcatheter aortic valve replacement) Acute S/P lumbar spinal fusion Acute Urinary retention Acute Plan CBC, CMP, Bld cx x2 LE dupplex Spoke during the meeting with Dr Barrera and Alysa- they will consider Re-CT LS area. They want CTA chest to R/O PE Spoke to Dr Riya Martinez 1 gm post blood cx Problem List - Problems (1) CAD (coronary artery disease) Code(s): I25.10 - ATHSCL HEART DISEASE OF [place] CORONARY ARTERY W/O ANG PCTRS Qualifiers: Coronary Disease-Associated Artery/Lesion type: [place] artery [place] vs. transplanted heart: [place] heart Associated angina: without angina Qualified Code(s): I25.10 - Atherosclerotic heart disease of [place] coronary artery without angina pectoris (2) Intractable back pain Code(s): M54.9 - DORSALGIA, UNSPECIFIED (3) Diabetes 1.5, managed as type 2 Code(s): E13.9 - OTHER SPECIFIED DIABETES MELLITUS WITHOUT COMPLICATIONS (4) HTN (hypertension) Code(s): I10 - ESSENTIAL (PRIMARY) HYPERTENSION Qualifiers: Hypertension type: essential hypertension Qualified Code(s): I10 - Essential (primary) hypertension (5) Constipation due to opioid therapy Code(s): K59.03 - DRUG INDUCED CONSTIPATION; T40.2X5A - ADVERSE EFFECT OF OTHER OPIOIDS, INITIAL ENCOUNTER
--- NOTE | 2019-05-13 08:38 | PN ---
Progress Note (short form) - Note Progress Note: POD #7 L2-L5 lami/decompresison and fusion. Patient seen and examined at bedside. He said his right leg pain improved and he is moving much better. His constipation has resolved and he is moving his bowels after receiving an enema. Despite stating that he is feeling better and he would like to go to rehab, he spiked a fever last night to 103.2. He is tolerating his diet and denies any CP, SOB, N/V, subjective fever or chills. Vital Signs Temp 98.4 F 10 06:27 Pulse 93 H 10 06:27 Resp 20 10 06:27 BP 141/62 05/13/19 02:12 Pulse Ox 100 05/12/19 09:00 Intake & Output 05/12/19 05/12/19 05/13/19 11:59 23:59 11:59 Intake Total 700 490 400 Output Total 700 Balance 700 -210 400 Intake: IV 0 S/L 0 IVPB 50 50 100 Oral 300 440 300 Packed Cells 350 Output: Urine 700 Void 700 Other: Voiding Method Urinal Urinal # Unmeasured Voids Void 1 2 1 Bowel Movement No Yes: 1 Yes # Bowel Movements 1 1 CBC, BMP 05/12/19 11:32 05/12/19 11:32 GEN: A&0x3, NAD Unlabored resp on RA BACK: dressing c/d/i with surrounding tissue intact with no tracking erythema or active d/c. NEURO: B/L LE compartments soft, supple and non-tender to palpation. 5/5 dorsi/ plantar flexion with +2 DP pulses. Able to straight leg raise b/l legs, left higher than right. Blood cultures negative. CXR 10/ with no evidence of pneumonia or infiltrates. Problem List - Problems (1) S/P lumbar spinal fusion Assessment/Plan: POD #7 L2-L5 Laminectomies and osteotomies, with removal of foramenal disc L45 and L2-L5 fusion with pedicle screws and arthrodesis, insertion of cages, and correction of deformity. Intermittent low grade fevers, being treated for UTI, ( spiked overnight) and post op anemia currently asymptomatic. Blood cultures negative, urine culture with some + findings although not impressive and WBCs trending down. Stat CTA of chest to r/o PE B/L Dupplex LE r/o DVT continue aspirin and plavix SITZ baths, tucks pads, f/u with colorectal as out patient Encourage ambulation and OOB to chair for meals, TLSO brace ordered/PT Encourage IS Trend labs Evaluation and plan discussed with Dr Jones and Dr. Porter Code(s): Z98.1 - ARTHRODESIS STATUS
[2019-05-13] MEDS ORDERED: VANCOMYCIN 1 GM in D5W (PRE-DOCKED) 1,000 MG/250 ML IVPB ONE (08:45)
[2019-05-13] MEDS: POLYETHYLENE GLYCOL 3350 119 GM BTL PO SCH ×2 (09:23→23:39)
[2019-05-13] MEDS: METOPROLOL TARTRATE 50 MG TABLET (FP) PO SCH ×2 (09:23→23:39)
[2019-05-13] MEDS: PANTOPRAZOLE 40 MG TABLET (FP) PO SCH (09:23)
[2019-05-13] MEDS: ASPIRIN COATED 81 MG TABLET.EC PO SCH (09:23)
[2019-05-13] MEDS: FOLIC ACID 1 MG TABLET (FP) PO SCH (09:23)
[2019-05-13] MEDS: CLOPIDOGREL BISULFATE 75 MG TABLET (FP) PO SCH (09:23)
[2019-05-13] MEDS: FERROUS SO4 325 MG TABLET (FP) PO SCH (09:23)
[2019-05-13] MEDS: WITCH HAZEL 50% (TUCKS) 40 PAD/JAR PAD TP PRN (09:24)
[2019-05-13] MEDS: HYDROCORTISONE 2.5% TOPICAL CREAM 30 GM TUBE TP SCH (09:25)
[2019-05-13] MEDS ORDERED: PT OWN MED DRAWER 7, Y5N ONE ×2 (09:33→22:06)
[2019-05-13] MEDS: PHENYLEPHRINE HCL/COCOA BUTTER SUPPOSITORY RC SCH ×2 (09:34→23:39)
[2019-05-13] MEDS: LIDOCAINE 5% TOPICAL PATCH TP SCH (09:34)
[2019-05-13 10:00] LABS: BASO % 0.3 % (0-2.0); EOS % 0.2 % (0-4.5); HEMATOCRIT 24.9 % (35.4-49); HEMOGLOBIN 8.5 GM/dL (11.7-16.9); LYMPH % 8.2 % (8-40); MCH 30.1 pg (25.7-33.7); MCHC 34.1 g/dl (32.0-35.9); MEAN CELL VOLUME 88.3 fl (80-96); MEAN PLT VOLUME 8.7 fl (7.5-11.1); MONO % 5.5 % (3.8-10.2); NEUT % 85.8 % (42.8-82.8); PLATELET COUNT 238 K/MM3 (134-434); RBC 2.83 M/mm3 (4.00-5.60); RDW 15.1 % (11.9-15.9)
[2019-05-13 10:26] LABS: ALBUMIN 2.1 g/dl (3.4-5.0); BILIRUBIN,TOTAL 0.5 mg/dL (0.2-1); BLOOD UREA NITROGEN 13.1 mg/dL (7-18); CALCIUM 8.2 mg/dL (8.5-10.1); CREATININE 0.8 mg/dL (0.55-1.3); POTASSIUM 3.8 mmol/L (3.5-5.1); TOT PROT 5.6 g/dl (6.4-8.2)
--- NOTE | 2019-05-13 11:29 | PN ---
Progress Note, Physician History of Present Illness: patient stable spiked fever going for work up ct of the chest and the back - Current Medication List Current Medications: Active Medications Acetaminophen (Tylenol -) 650 mg PO Q6H [facility] Last Admin: 05/13/19 08:25 Dose: 650 mg Aspirin (Ecotrin -) 81 mg PO DAILY [facility] Last Admin: 05/13/19 09:23 Dose: 81 mg Atorvastatin Calcium (Lipitor -) 20 mg PO HS [facility] Last Admin: 05/12/19 21:35 Dose: 20 mg Bisacodyl (Dulcolax Suppository -) 10 mg RC PRN PRN PRN Reason: CONSTIPATION Clopidogrel Bisulfate (Plavix -) 75 mg PO DAILY [facility] Last Admin: 05/13/19 09:23 Dose: 75 mg [place] Butter/Phenylephrine (Preparation H Suppository) 1 each RC BID [facility] Last Admin: 05/13/19 09:34 Dose: 1 each Diphenhydramine HCl (Benadryl -) 25 mg PO Q6H PRN PRN Reason: FOR ITCHING Last Admin: 05/12/19 21:35 Dose: 25 mg Docusate Sodium (Colace -) 100 mg PO TID [facility] Last Admin: 05/13/19 05:43 Dose: 100 mg Ferrous Sulfate (Feosol -) 325 mg PO DAILY [facility] Last Admin: 05/13/19 09:23 Dose: 325 mg Folic Acid (Folic Acid -) 1 mg PO DAILY [facility] Last Admin: 05/13/19 09:23 Dose: 1 mg Gabapentin (Neurontin -) 300 mg PO TID [facility] Last Admin: 05/13/19 05:43 Dose: 300 mg Hydrocortisone (Anusol 2.5% Hc Cream -) 1 applic TP DAILY [facility] Last Admin: 05/13/19 09:25 Dose: 1 applic Cefazolin Sodium 1 gm/ (Dextrose) 50 mls @ 100 mls/hr IVPB Q8H-IV [facility] Last Admin: 05/13/19 09:34 Dose: 100 mls/hr Lidocaine (Lidoderm Patch -) 2 patch TP DAILY [facility] Last Admin: 05/13/19 09:34 Dose: 2 patch Metoprolol Tartrate (Lopressor -) 50 mg PO BID [facility] Last Admin: 05/13/19 09:23 Dose: 50 mg Miscellaneous (Lidoderm Patch Removal) 2 each MC DAILY@2200 [facility] Last Admin: 05/12/19 21:37 Dose: 2 each Naloxone HCl (Narcan -) 0.4 mg IVPUSH ONCE PRN PRN Reason: Sedation Ondansetron HCl (Zofran Injection) 4 mg IVPUSH Q4H PRN PRN Reason: NAUSEA AND/OR VOMITING Oxycodone HCl (Roxicodone -) 5 mg PO Q4H PRN PRN Reason: PAIN LEVEL 1-5 Last Admin: 05/13/19 04:10 Dose: 5 mg Pantoprazole Sodium (Protonix -) 40 mg PO DAILY [facility] Last Admin: 05/13/19 09:23 Dose: 40 mg Polyethylene Glycol (Miralax (For Daily Use) -) 17 gm PO BID [facility] Last Admin: 05/13/19 09:23 Dose: Not Given Promethazine HCl (Phenergan Injection -) 12.5 mg IVPB Q6H PRN PRN Reason: NAUSEA AND/OR VOMITING Senna (Senna -) 2 tab PO HS [facility] Last Admin: 05/12/19 21:35 Dose: 2 tab Tamsulosin HCl (Flomax -) 0.8 mg PO DAILY@0830 [facility] Last Admin: 05/13/19 08:25 Dose: 0.8 mg [place] Megan/Glycerin (Tucks Pads -) 1 pad TP PRN PRN PRN Reason: PAIN Last Admin: 05/13/19 09:24 Dose: 1 pad - Objective Vital Signs: Vital Signs Temperature 98.4 F 05/13/19 06:27 Pulse Rate 93 H 05/13/19 06:27 Respiratory Rate 20 05/13/19 06:27 Blood Pressure 141/62 05/13/19 02:12 O2 Sat by Pulse Oximetry (%) 100 05/12/19 09:00 Constitutional: Yes: No Distress, Calm Cardiovascular: Yes: S1, S2 Respiratory: Yes: Regular, CTA Bilaterally Gastrointestinal: Yes: Normal Bowel Sounds, Soft Musculoskeletal: Yes: WNL Extremities: Yes: WNL Wound/Incision: Yes: Dressing Dry and Intact Neurological: Yes: Alert, Oriented Psychiatric: Yes: Alert, Oriented Labs: CBC, BMP 05/13/19 09:15 05/13/19 09:15 INR, PTT INR 1.10 (0.83-1.09) H 10/01/19 14:51 Assessment/Plan Problem List - Problems (1) CAD (coronary artery disease) Code(s): I25.10 - ATHSCL HEART DISEASE OF [place] CORONARY ARTERY W/O ANG PCTRS Qualifiers: Coronary Disease-Associated Artery/Lesion type: [place] artery [place] vs. transplanted heart: [place] heart Associated angina: without angina Qualified Code(s): I25.10 - Atherosclerotic heart disease of [place] coronary artery without angina pectoris (2) Intractable back pain Code(s): M54.9 - DORSALGIA, UNSPECIFIED (3) Diabetes 1.5, managed as type 2 Code(s): E13.9 - OTHER SPECIFIED DIABETES MELLITUS WITHOUT COMPLICATIONS (4) HTN (hypertension) Code(s): I10 - ESSENTIAL (PRIMARY) HYPERTENSION Qualifiers: Hypertension type: essential hypertension Qualified Code(s): I10 - Essential (primary) hypertension fever leukocytosis plan will change to zosyn wound care await for imaging studies rest as per the team
[2019-05-13 13:32] LABS: ANISOCYTOSIS 0; MACROCYTOSIS 0; PLATELET ESTIMATE NORMAL
--- NOTE | 2019-05-13 14:03 | PN ---
Progress Note, Physician Chief Complaint: FEVERS seen by ID, IV abx adjusted IMAGING for FEVER W/u pending. denies CP, SOB, + chills History of Present Illness: BP stable - Current Medication List Current Medications: Active Medications Acetaminophen (Tylenol -) 650 mg PO Q6H PRN PRN Reason: PAIN OR FEVER Aspirin (Ecotrin -) 81 mg PO DAILY [facility] Last Admin: 05/13/19 09:23 Dose: 81 mg Atorvastatin Calcium (Lipitor -) 20 mg PO HS [facility] Last Admin: 05/12/19 21:35 Dose: 20 mg Bisacodyl (Dulcolax Suppository -) 10 mg RC PRN PRN PRN Reason: CONSTIPATION Clopidogrel Bisulfate (Plavix -) 75 mg PO DAILY [facility] Last Admin: 05/13/19 09:23 Dose: 75 mg [place] Butter/Phenylephrine (Preparation H Suppository) 1 each RC BID [facility] Last Admin: 05/13/19 09:34 Dose: 1 each Diphenhydramine HCl (Benadryl -) 25 mg PO Q6H PRN PRN Reason: FOR ITCHING Last Admin: 05/12/19 21:35 Dose: 25 mg Docusate Sodium (Colace -) 100 mg PO TID [facility] Last Admin: 05/13/19 05:43 Dose: 100 mg Ferrous Sulfate (Feosol -) 325 mg PO DAILY [facility] Last Admin: 05/13/19 09:23 Dose: 325 mg Folic Acid (Folic Acid -) 1 mg PO DAILY [facility] Last Admin: 05/13/19 09:23 Dose: 1 mg Gabapentin (Neurontin -) 300 mg PO TID [facility] Last Admin: 05/13/19 05:43 Dose: 300 mg Hydrocortisone (Anusol 2.5% Hc Cream -) 1 applic TP DAILY [facility] Last Admin: 05/13/19 09:25 Dose: 1 applic Piperacillin Sod/Tazobactam (Sod 3.375 gm/ Dextrose) 50 mls @ 100 mls/hr IVPB Q8H-IV [facility]; Protocol Lidocaine (Lidoderm Patch -) 2 patch TP DAILY [facility] Last Admin: 05/13/19 09:34 Dose: 2 patch Metoprolol Tartrate (Lopressor -) 50 mg PO BID [facility] Last Admin: 05/13/19 09:23 Dose: 50 mg Miscellaneous (Lidoderm Patch Removal) 2 each MC DAILY@2200 [facility] Last Admin: 05/12/19 21:37 Dose: 2 each Naloxone HCl (Narcan -) 0.4 mg IVPUSH ONCE PRN PRN Reason: Sedation Ondansetron HCl (Zofran Injection) 4 mg IVPUSH Q4H PRN PRN Reason: NAUSEA AND/OR VOMITING Oxycodone HCl (Roxicodone -) 5 mg PO Q4H PRN PRN Reason: PAIN LEVEL 1-5 Last Admin: 05/13/19 04:10 Dose: 5 mg Pantoprazole Sodium (Protonix -) 40 mg PO DAILY [facility] Last Admin: 05/13/19 09:23 Dose: 40 mg Polyethylene Glycol (Miralax (For Daily Use) -) 17 gm PO BID [facility] Last Admin: 05/13/19 09:23 Dose: Not Given Promethazine HCl (Phenergan Injection -) 12.5 mg IVPB Q6H PRN PRN Reason: NAUSEA AND/OR VOMITING Senna (Senna -) 2 tab PO HS [facility] Last Admin: 05/12/19 21:35 Dose: 2 tab Tamsulosin HCl (Flomax -) 0.8 mg PO DAILY@0830 [facility] Last Admin: 05/13/19 08:25 Dose: 0.8 mg [place] Megan/Glycerin (Tucks Pads -) 1 pad TP PRN PRN PRN Reason: PAIN Last Admin: 05/13/19 09:24 Dose: 1 pad - Objective Vital Signs: Vital Signs Temperature 98.2 F 05/13/19 09:00 Pulse Rate 93 H 05/13/19 09:00 Respiratory Rate 20 05/13/19 09:00 Blood Pressure 120/55 L 05/13/19 09:00 O2 Sat by Pulse Oximetry (%) 99 05/13/19 09:00 Constitutional: Yes: No Distress, Calm Eyes: Yes: Conjunctiva Clear Neck: Yes: Supple Cardiovascular: Yes: Regular Rate and Rhythm Respiratory: Yes: CTA Bilaterally (no rales, wheezing) Gastrointestinal: Yes: Soft (NT) Edema: No Neurological: Yes: Alert, Oriented ...Motor Strength: WNL Labs: CBC, BMP 05/13/19 09:15 05/13/19 09:15 INR, PTT INR 1.10 (0.83-1.09) H 05/06/19 14:51 Microbiology 05/10/19 16:09 Blood - Peripheral Venous Blood Culture - Preliminary NO GROWTH OBTAINED AFTER 48 HOURS, INCUBATION TO CONTINUE FOR 3 DAYS. 05/10/19 16:01 Blood - Peripheral Venous Blood Culture - Preliminary NO GROWTH OBTAINED AFTER 48 HOURS, INCUBATION TO CONTINUE FOR 3 DAYS. Laboratory Tests 05/13/19 05/13/19 09:15 09:15 WBC 8.0 Hgb 8.5 L Plt Count 238 Sodium 133 L Potassium 3.8 - ....Imaging Cat Scan: Pending Assessment/Plan Assessment/Plan a/p: 78 m hx htn, hld, cad s/p remote pci, tavr 02/2018, here with low back pain. back pain, post op s/p L2-L5 Laminectomies/Osteotomies/L2-L5 Fusion/Cage Insertion -manage per surgery fevers: -w/u as per ID and PMD -cultures NGTD -imaging pending -Cont IV abx htn: controlled, hemodynamically stable. -cont bb hld: -cont statin cad, remote pci: -stable no angina no signs acs -cont bb, raeann, asa, statin, plavix - last PCI 2009, >1 year since TAVR as s/p tavr: -stable, no signs chf -cont aspirin, plavix- may be able to stop Plavix at this point as > one year post PCI and > 1 year post TAVR, continue plan per outpatient structural draftsman anemia: -As per PMD.
[2019-05-13] MEDS ORDERED: PIPERACILLIN/TAZOBACTAM 3.375 GM VIAL IVPB ONE ×2 (14:42→17:46)
[2019-05-13] MEDS: PIPERACILLIN/TAZOB 3.375 GM 3.375 GM in DEXTROSE 5%-WATER - 50 ML IVPB SCH ×2 (14:51→17:49)
[2019-05-13] MEDS: ACETAMINOPHEN 325 MG TABLET (FP) PO PRN (18:16)
[2019-05-13] MEDS: ATORVASTATIN CA 20 MG TABLET (FP) PO SCH (23:39)
[2019-05-13] MEDS: SENNOSIDES 8.6MG TABLET (FP) PO SCH (23:39)
[2019-05-13] MEDS: LIDOCAINE PATCH REMOVAL MC SCH (23:40)
[2019-05-14] MEDS ORDERED: DEXTROSE 5%-WATER - 50 ML IVPB ONE ×3 (01:31→17:44)
[2019-05-14] MEDS ORDERED: PIPERACILLIN/TAZOBACTAM 3.375 GM VIAL IVPB ONE ×3 (01:31→17:44)
[2019-05-14] MEDS: PIPERACILLIN/TAZOB 3.375 GM 3.375 GM in DEXTROSE 5%-WATER - 50 ML IVPB SCH ×3 (01:42→18:00)
[2019-05-14] MEDS: PHENYLEPHRINE HCL/COCOA BUTTER SUPPOSITORY RC SCH ×3 (02:50→22:41)
[2019-05-14] MEDS: ACETAMINOPHEN 325 MG TABLET (FP) PO PRN ×2 (02:52→17:53)
[2019-05-14] MEDS: GABAPENTIN 300 MG CAPSULE (FP) PO SCH ×3 (05:18→22:40)
[2019-05-14] MEDS: DOCUSATE SODIUM 100 MG CAPSULE (FP) PO SCH ×3 (05:18→22:40)
[2019-05-14] MEDS: WITCH HAZEL 50% (TUCKS) 40 PAD/JAR PAD TP PRN (06:10)
[2019-05-14] MEDS ORDERED: PT OWN MED DRAWER 7, Y5N ONE ×2 (07:02→09:03)
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
--- NOTE | 2019-05-14 08:23 | PN ---
Progress Note (short form) - Note Progress Note: POD #8 L2-L5 lami/decompresison and fusion. Patient seen and examined at bedside. 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 He states overall he feels well although he is still spiking fevers with Tmax of 102.9 He is tolerating his diet and denies any CP, SOB, N/V, subjective fever or chills. Vital Signs Temp 98.7 F 10 06:00 Pulse 87 05/14/19 06:00 Resp 20 05/14/19 06:00 BP 130/65 05/14/19 06:00 Pulse Ox 100 05/13/19 21:00 Intake & Output 05/13/19 05/13/19 05/14/19 11:59 23:59 11:59 Intake Total 400 170 Balance 400 170 Intake: IVPB 100 50 Oral 300 120 Other: Voiding Method Urinal Urinal # Unmeasured Voids Void 1 1 3 Bowel Movement Yes No Yes # Bowel Movements 1 3 CBC, BMP 05/14/19 11:09 05/14/19 11:09 GEN: A&0x3, NAD Unlabored resp on RA BACK: incision c/d/i with surrounding tissue intact with no tracking erythema or evidence of collection or d/c. NEURO: B/L LE compartments soft, supple and non-tender to palpation. 5/5 dorsi/ plantar flexion with +2 DP pulses. Able to straight leg raise b/l legs, left higher than right. Chest CTA: no evidence of PE or pneumonia Lumbar CT: hardware in place with no evidence of collection Problem List - Problems (1) S/P lumbar spinal fusion Assessment/Plan: POD #9 lumbar decompression and fusion with FUO, infectious dz following. -IV ABX per ID -f/u blood cultures- fever work up - Encourage OOB up to chair for meals and ambulate with TLSO -Encourage IS Evaluation and plan discussed with Dr Porter. Code(s): Z98.1 - ARTHRODESIS STATUS
[2019-05-14] MEDS: FOLIC ACID 1 MG TABLET (FP) PO SCH (09:08)
[2019-05-14] MEDS: PANTOPRAZOLE 40 MG TABLET (FP) PO SCH (09:08)
[2019-05-14] MEDS: METOPROLOL TARTRATE 50 MG TABLET (FP) PO SCH ×2 (09:08→22:40)
[2019-05-14] MEDS: FERROUS SO4 325 MG TABLET (FP) PO SCH (09:08)
[2019-05-14] MEDS: ASPIRIN COATED 81 MG TABLET.EC PO SCH (09:08)
[2019-05-14] MEDS: LIDOCAINE 5% TOPICAL PATCH TP SCH (09:08)
[2019-05-14] MEDS: TAMSULOSIN HCL 0.4 MG CAP PO SCH (09:08)
[2019-05-14] MEDS: CLOPIDOGREL BISULFATE 75 MG TABLET (FP) PO SCH (09:08)
[2019-05-14] MEDS: POLYETHYLENE GLYCOL 3350 119 GM BTL PO SCH ×2 (09:11→22:39)
--- NOTE | 2019-05-14 11:44 | PN ---
Progress Note, Physician History of Present Illness: stable no new issues spiked a fever - Current Medication List Current Medications: Active Medications Acetaminophen (Tylenol -) 650 mg PO Q6H PRN PRN Reason: PAIN OR FEVER Last Admin: 05/14/19 02:52 Dose: 650 mg Aspirin (Ecotrin -) 81 mg PO DAILY [facility] Last Admin: 05/14/19 09:08 Dose: 81 mg Atorvastatin Calcium (Lipitor -) 20 mg PO HS [facility] Last Admin: 05/13/19 23:39 Dose: 20 mg Bisacodyl (Dulcolax Suppository -) 10 mg RC PRN PRN PRN Reason: CONSTIPATION Clopidogrel Bisulfate (Plavix -) 75 mg PO DAILY [facility] Last Admin: 05/14/19 09:08 Dose: 75 mg [place] Butter/Phenylephrine (Preparation H Suppository) 1 each RC BID [facility] Last Admin: 05/14/19 09:10 Dose: 1 each Diphenhydramine HCl (Benadryl -) 25 mg PO Q6H PRN PRN Reason: FOR ITCHING Last Admin: 05/12/19 21:35 Dose: 25 mg Docusate Sodium (Colace -) 100 mg PO TID [facility] Last Admin: 05/14/19 05:18 Dose: 100 mg Ferrous Sulfate (Feosol -) 325 mg PO DAILY [facility] Last Admin: 05/14/19 09:08 Dose: 325 mg Folic Acid (Folic Acid -) 1 mg PO DAILY [facility] Last Admin: 05/14/19 09:08 Dose: 1 mg Gabapentin (Neurontin -) 300 mg PO TID [facility] Last Admin: 05/14/19 05:18 Dose: 300 mg Hydrocortisone (Anusol 2.5% Hc Cream -) 1 applic TP DAILY [facility] Last Admin: 05/13/19 09:25 Dose: 1 applic Piperacillin Sod/Tazobactam (Sod 3.375 gm/ Dextrose) 50 mls @ 100 mls/hr IVPB Q8H-IV [facility]; Protocol Last Admin: 05/14/19 09:08 Dose: 100 mls/hr Lidocaine (Lidoderm Patch -) 2 patch TP DAILY [facility] Last Admin: 05/14/19 09:08 Dose: 2 patch Metoprolol Tartrate (Lopressor -) 50 mg PO BID [facility] Last Admin: 05/14/19 09:08 Dose: 50 mg Miscellaneous (Lidoderm Patch Removal) 2 each DAILY@2200 [facility] Last Admin: 05/13/19 23:40 Dose: Not Given Naloxone HCl (Narcan -) 0.4 mg IVPUSH ONCE PRN PRN Reason: Sedation Ondansetron HCl (Zofran Injection) 4 mg IVPUSH Q4H PRN PRN Reason: NAUSEA AND/OR VOMITING Oxycodone HCl (Roxicodone -) 5 mg PO Q4H PRN PRN Reason: PAIN LEVEL 1-5 Last Admin: 05/13/19 14:50 Dose: 5 mg Pantoprazole Sodium (Protonix -) 40 mg PO DAILY [facility] Last Admin: 05/14/19 09:08 Dose: 40 mg Polyethylene Glycol (Miralax (For Daily Use) -) 17 gm PO BID [facility] Last Admin: 05/14/19 09:11 Dose: Not Given Promethazine HCl (Phenergan Injection -) 12.5 mg IVPB Q6H PRN PRN Reason: NAUSEA AND/OR VOMITING Senna (Senna -) 2 tab PO HS [facility] Last Admin: 05/13/19 23:39 Dose: 2 tab Tamsulosin HCl (Flomax -) 0.8 mg PO DAILY@0830 [facility] Last Admin: 05/14/19 09:08 Dose: 0.8 mg [place] Megan/Glycerin (Tucks Pads -) 1 pad TP PRN PRN PRN Reason: PAIN Last Admin: 05/14/19 06:10 Dose: 1 pad - Objective Vital Signs: Vital Signs Temperature 98.7 F 05/14/19 06:00 Pulse Rate 87 05/14/19 06:00 Respiratory Rate 20 05/14/19 06:00 Blood Pressure 130/65 05/14/19 06:00 O2 Sat by Pulse Oximetry (%) 100 05/13/19 21:00 Constitutional: Yes: No Distress, Calm Cardiovascular: Yes: S1, S2 Gastrointestinal: Yes: Normal Bowel Sounds, Soft Musculoskeletal: Yes: WNL Extremities: Yes: WNL Wound/Incision: Yes: Dressing Dry and Intact Neurological: Yes: Alert, Oriented Psychiatric: Yes: Alert, Oriented Labs: CBC, BMP 05/13/19 09:15 05/13/19 09:15 INR, PTT INR 1.10 (0.83-1.09) H 10/01/19 14:51 Assessment/Plan Problem List - Problems (1) CAD (coronary artery disease) Code(s): I25.10 - ATHSCL HEART DISEASE OF [place] CORONARY ARTERY W/O ANG PCTRS Qualifiers: Coronary Disease-Associated Artery/Lesion type: [place] artery [place] vs. transplanted heart: [place] heart Associated angina: without angina Qualified Code(s): I25.10 - Atherosclerotic heart disease of [place] coronary artery without angina pectoris (2) Intractable back pain Code(s): M54.9 - DORSALGIA, UNSPECIFIED (3) Diabetes 1.5, managed as type 2 Code(s): E13.9 - OTHER SPECIFIED DIABETES MELLITUS WITHOUT COMPLICATIONS (4) HTN (hypertension) Code(s): I10 - ESSENTIAL (PRIMARY) HYPERTENSION Qualifiers: Hypertension type: essential hypertension Qualified Code(s): I10 - Essential (primary) hypertension fever leukocytosis plan continue abx await for cx reports ct scans results noted rest as per the team
--- NOTE | 2019-05-14 11:45 | PN ---
Progress Note (short form) - Note Progress Note: s: no chest pain, palps, dizziness, dyspnea Current Medications Acetaminophen (Tylenol -) 650 mg PO Q6H PRN PRN Reason: PAIN OR FEVER Last Admin: 05/14/19 02:52 Dose: 650 mg Aspirin (Ecotrin -) 81 mg PO DAILY [facility] Last Admin: 05/14/19 09:08 Dose: 81 mg Atorvastatin Calcium (Lipitor -) 20 mg PO HS [facility] Last Admin: 05/13/19 23:39 Dose: 20 mg Bisacodyl (Dulcolax Suppository -) 10 mg RC PRN PRN PRN Reason: CONSTIPATION Clopidogrel Bisulfate (Plavix -) 75 mg PO DAILY [facility] Last Admin: 05/14/19 09:08 Dose: 75 mg [place] Butter/Phenylephrine (Preparation H Suppository) 1 each RC BID [facility] Last Admin: 05/14/19 09:10 Dose: 1 each Diphenhydramine HCl (Benadryl -) 25 mg PO Q6H PRN PRN Reason: FOR ITCHING Last Admin: 05/12/19 21:35 Dose: 25 mg Docusate Sodium (Colace -) 100 mg PO TID [facility] Last Admin: 05/14/19 05:18 Dose: 100 mg Ferrous Sulfate (Feosol -) 325 mg PO DAILY [facility] Last Admin: 05/14/19 09:08 Dose: 325 mg Folic Acid (Folic Acid -) 1 mg PO DAILY [facility] Last Admin: 05/14/19 09:08 Dose: 1 mg Gabapentin (Neurontin -) 300 mg PO TID [facility] Last Admin: 05/14/19 05:18 Dose: 300 mg Hydrocortisone (Anusol 2.5% Hc Cream -) 1 applic TP DAILY [facility] Last Admin: 05/13/19 09:25 Dose: 1 applic Piperacillin Sod/Tazobactam (Sod 3.375 gm/ Dextrose) 50 mls @ 100 mls/hr IVPB Q8H-IV [facility]; Protocol Last Admin: 05/14/19 09:08 Dose: 100 mls/hr Lidocaine (Lidoderm Patch -) 2 patch TP DAILY [facility] Last Admin: 05/14/19 09:08 Dose: 2 patch Metoprolol Tartrate (Lopressor -) 50 mg PO BID [facility] Last Admin: 05/14/19 09:08 Dose: 50 mg Miscellaneous (Lidoderm Patch Removal) 2 each MC DAILY@2200 [facility] Last Admin: 05/13/19 23:40 Dose: Not Given Naloxone HCl (Narcan -) 0.4 mg IVPUSH ONCE PRN PRN Reason: Sedation Ondansetron HCl (Zofran Injection) 4 mg IVPUSH Q4H PRN PRN Reason: NAUSEA AND/OR VOMITING Oxycodone HCl (Roxicodone -) 5 mg PO Q4H PRN PRN Reason: PAIN LEVEL 1-5 Last Admin: 05/13/19 14:50 Dose: 5 mg Pantoprazole Sodium (Protonix -) 40 mg PO DAILY [facility] Last Admin: 05/14/19 09:08 Dose: 40 mg Polyethylene Glycol (Miralax (For Daily Use) -) 17 gm PO BID [facility] Last Admin: 05/14/19 09:11 Dose: Not Given Promethazine HCl (Phenergan Injection -) 12.5 mg IVPB Q6H PRN PRN Reason: NAUSEA AND/OR VOMITING Senna (Senna -) 2 tab PO HS [facility] Last Admin: 05/13/19 23:39 Dose: 2 tab Tamsulosin HCl (Flomax -) 0.8 mg PO DAILY@0830 [facility] Last Admin: 05/14/19 09:08 Dose: 0.8 mg [place] Megan/Glycerin (Tucks Pads -) 1 pad TP PRN PRN PRN Reason: PAIN Last Admin: 05/14/19 06:10 Dose: 1 pad Vital Signs Period Temp Pulse Resp BP Sys/López Pulse Ox Last 24 Hr 98.0 F-102.9 F 87-99 20-20 130-143/57-65 100 Constitutional: Yes: No Distress, Calm Eyes: Yes: Conjunctiva Clear Neck: Yes: Supple Cardiovascular: Yes: Regular Rate and Rhythm Respiratory: Yes: CTA Bilaterally (no rales, wheezing) Gastrointestinal: Yes: Soft (NT) Edema: No Neurological: Yes: Alert, Oriented no jaundice, diaphoresis - ....Imaging Cat Scan: Pending Assessment/Plan a/p: 78 m hx htn, hld, cad s/p remote pci, tavr 02/2018, here with low back pain. back pain, post op s/p L2-L5 Laminectomies/Osteotomies/L2-L5 Fusion/Cage Insertion -manage per surgery fevers: -w/u as per ID and PMD -cultures NGTD -no source identified on imaging -Cont IV abx per ID htn: controlled, hemodynamically stable. 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
[2019-05-14 11:56] LABS: BASO % 0.4 % (0-2.0); EOS % 0.4 % (0-4.5); HEMATOCRIT 25.6 % (35.4-49); HEMOGLOBIN 8.6 GM/dL (11.7-16.9); LYMPH % 6.4 % (8-40); MCH 29.7 pg (25.7-33.7); MCHC 33.5 g/dl (32.0-35.9); MEAN CELL VOLUME 88.6 fl (80-96); MEAN PLT VOLUME 8.3 fl (7.5-11.1); MONO % 6.8 % (3.8-10.2); PLATELET COUNT 285 K/MM3 (134-434); RBC 2.89 M/mm3 (4.00-5.60); RDW 14.8 % (11.9-15.9); WHITE BLOOD COUNT 8.3 K/mm3 (4.0-10.0)
[2019-05-14 12:32] LABS: ALBUMIN 2.2 g/dl (3.4-5.0); BILIRUBIN,TOTAL 0.5 mg/dL (0.2-1); BLOOD UREA NITROGEN 12.2 mg/dL (7-18); CALCIUM 8.2 mg/dL (8.5-10.1); CREATININE 0.8 mg/dL (0.55-1.3); MAGNESIUM 2.2 mg/dL (1.8-2.4); POTASSIUM 4.4 mmol/L (3.5-5.1); TOT PROT 5.9 g/dl (6.4-8.2)
[2019-05-14 13:42] LABS: ANISOCYTOSIS 0; MACROCYTOSIS 0; PLATELET ESTIMATE NORMAL
[2019-05-14] MEDS: HYDROCORTISONE 2.5% TOPICAL CREAM 30 GM TUBE TP SCH (14:31)
[2019-05-14] MEDS: ATORVASTATIN CA 20 MG TABLET (FP) PO SCH (22:40)
[2019-05-14] MEDS: SENNOSIDES 8.6MG TABLET (FP) PO SCH (22:40)
[2019-05-14] MEDS: LIDOCAINE PATCH REMOVAL MC SCH (22:41)
[2019-05-15] MEDS ORDERED: DEXTROSE 5%-WATER - 50 ML IVPB ONE ×2 (01:26→09:21)
[2019-05-15] MEDS ORDERED: PIPERACILLIN/TAZOBACTAM 3.375 GM VIAL IVPB ONE ×2 (01:26→09:21)
[2019-05-15] MEDS: oxyCODONE HCL 5 MG TABLET PO PRN (02:22)
[2019-05-15] MEDS: PIPERACILLIN/TAZOB 3.375 GM 3.375 GM in DEXTROSE 5%-WATER - 50 ML IVPB SCH ×2 (02:23→09:25)
[2019-05-15] MEDS: GABAPENTIN 300 MG CAPSULE (FP) PO SCH ×3 (06:12→21:08)
[2019-05-15] MEDS: DOCUSATE SODIUM 100 MG CAPSULE (FP) PO SCH ×2 (06:12→13:50)
--- NOTE | 2019-05-15 08:29 | PN ---
Progress Note, Physician Chief Complaint: Still spiking Fever. GI consult appreciated. Patient was discussed with ID. History of Present Illness: PMH EXTERNAL HEMORRHOIDS. OLD LEFT rib fractures LOW Back pain radiating down RLE. NEUROGENIC CLAUDICATION. WEIGHT LOSS 20 LBS. DM type 2 STABLE ANGINA ANGIOPLASTY 1989 [facility] STENTS X3 2006 ANDS X3 2010 [facility] in the past RCA/LAD/LCX , TAVR 02/26/2018 IN [place]. ALEX HTN HLD SCLERODERMA. REYNAUD'S SYNDROME. RIH REPAIR 1957 PVD, LLE STENT.CLAUDICATION. CRI/CKD 3, BPH TINNITUS - Current Medication List Current Medications: Active Medications Acetaminophen (Tylenol -) 650 mg PO Q6H PRN PRN Reason: PAIN OR FEVER Last Admin: 05/14/19 17:53 Dose: 650 mg Aspirin (Ecotrin -) 81 mg PO DAILY [facility] Last Admin: 05/14/19 09:08 Dose: 81 mg Atorvastatin Calcium (Lipitor -) 20 mg PO HS [facility] Last Admin: 05/14/19 22:40 Dose: 20 mg Bisacodyl (Dulcolax Suppository -) 10 mg RC PRN PRN PRN Reason: CONSTIPATION Clopidogrel Bisulfate (Plavix -) 75 mg PO DAILY [facility] Last Admin: 05/14/19 09:08 Dose: 75 mg [place] Butter/Phenylephrine (Preparation H Suppository) 1 each RC BID [facility] Last Admin: 05/14/19 22:41 Dose: 1 each Diphenhydramine HCl (Benadryl -) 25 mg PO Q6H PRN PRN Reason: FOR ITCHING Last Admin: 05/12/19 21:35 Dose: 25 mg Docusate Sodium (Colace -) 100 mg PO TID [facility] Last Admin: 05/15/19 06:12 Dose: 100 mg Ferrous Sulfate (Feosol -) 325 mg PO DAILY [facility] Last Admin: 05/14/19 09:08 Dose: 325 mg Folic Acid (Folic Acid -) 1 mg PO DAILY [facility] Last Admin: 05/14/19 09:08 Dose: 1 mg Gabapentin (Neurontin -) 300 mg PO TID [facility] Last Admin: 05/15/19 06:12 Dose: 300 mg Hydrocortisone (Anusol 2.5% Hc Cream -) 1 applic TP DAILY [facility] Last Admin: 05/14/19 14:31 Dose: 1 applic Piperacillin Sod/Tazobactam (Sod 3.375 gm/ Dextrose) 50 mls @ 100 mls/hr IVPB Q8H-IV [facility]; Protocol Last Admin: 05/15/19 02:23 Dose: 100 mls/hr Lidocaine (Lidoderm Patch -) 2 patch TP DAILY [facility] Last Admin: 05/14/19 09:08 Dose: 2 patch Metoprolol Tartrate (Lopressor -) 50 mg PO BID [facility] Last Admin: 05/14/19 22:40 Dose: 50 mg Miscellaneous (Lidoderm Patch Removal) 2 each MC DAILY@2200 [facility] Last Admin: 05/14/19 22:41 Dose: 2 each Naloxone HCl (Narcan -) 0.4 mg IVPUSH ONCE PRN PRN Reason: Sedation Ondansetron HCl (Zofran Injection) 4 mg IVPUSH Q4H PRN PRN Reason: NAUSEA AND/OR VOMITING Oxycodone HCl (Roxicodone -) 5 mg PO Q4H PRN PRN Reason: PAIN LEVEL 1-5 Last Admin: 05/15/19 02:22 Dose: 5 mg Pantoprazole Sodium (Protonix -) 40 mg PO DAILY [facility] Last Admin: 05/14/19 09:08 Dose: 40 mg Polyethylene Glycol (Miralax (For Daily Use) -) 17 gm PO BID [facility] Last Admin: 05/14/19 22:39 Dose: Not Given Promethazine HCl (Phenergan Injection -) 12.5 mg IVPB Q6H PRN PRN Reason: NAUSEA AND/OR VOMITING Senna (Senna -) 2 tab PO HS [facility] Last Admin: 05/14/19 22:40 Dose: 2 tab Tamsulosin HCl (Flomax -) 0.8 mg PO DAILY@0830 [facility] Last Admin: 05/14/19 09:08 Dose: 0.8 mg Witch Megan/Glycerin (Tucks Pads -) 1 pad TP PRN PRN PRN Reason: PAIN Last Admin: 05/14/19 06:10 Dose: 1 pad - Objective Vital Signs: Vital Signs Temperature 100 F H 05/15/19 06:00 Pulse Rate 91 H 05/15/19 06:00 Respiratory Rate 20 05/15/19 06:00 Blood Pressure 136/54 L 05/15/19 06:00 O2 Sat by Pulse Oximetry (%) 100 05/14/19 09:00 Constitutional: Yes: Calm, Mild Distress Eyes: Yes: Conjunctiva Clear, EOM Intact HENT: Yes: Atraumatic, Normocephalic Neck: Yes: Supple, Trachea Midline Cardiovascular: Yes: Regular Rate and Rhythm, S1, S2. No: Bradycardia, Tachycardia Respiratory: Yes: Regular, CTA Bilaterally Gastrointestinal: Yes: Normal Bowel Sounds, Soft, Hemorrhoids. No: Abdomen, Obese, Ascites, Hypoactive Bowel Sounds, Melena, Rectal Bleeding, Vomiting Genitourinary: No: Anuria, Bladder Distention Breast(s): Yes: WNL Extremities: No: Amputation, Calf Tenderness, Cold Edema: No Peripheral Pulses WNL: No Wound/Incision: Yes: Well Approximated Neurological: Yes: Alert, Oriented. No: Aphasia, Dysarthria, Unresponsive ...Motor Strength: WNL Psychiatric: Yes: WNL Labs: CBC, BMP 05/14/19 11:09 05/14/19 11:09 INR, PTT INR 1.10 (0.83-1.09) H 05/06/19 14:51 Problem List - Problems (1) CAD (coronary artery disease) Assessment/Plan: CONTINUE STATINS, PLAVIX/ASA CARDIOLOGY F/U. Code(s): I25.10 - ATHSCL HEART DISEASE OF [place] CORONARY ARTERY W/O ANG PCTRS Qualifiers: Coronary Disease-Associated Artery/Lesion type: [place] artery [place] vs. transplanted heart: [place] heart Associated angina: without angina Qualified Code(s): I25.10 - Atherosclerotic heart disease of [place] coronary artery without angina pectoris (2) Intractable back pain Assessment/Plan: S/P LS LAMINECTOMY. Discussed with surgical team Pending rehab post op continue pain management PT/OOB Code(s): M54.9 - DORSALGIA, UNSPECIFIED (3) Diabetes 1.5, managed as type 2 Assessment/Plan: bgm -controlled Code(s): E13.9 - OTHER SPECIFIED DIABETES MELLITUS WITHOUT COMPLICATIONS (4) HTN (hypertension) Assessment/Plan: Conbtrolled Goal < 140/80P Code(s): I10 - ESSENTIAL (PRIMARY) HYPERTENSION Qualifiers: Hypertension type: essential hypertension Qualified Code(s): I10 - Essential (primary) hypertension (5) Fever Assessment/Plan: D/C Abx and observe with ID Re culture if continues to have fevers. Problems reviewed: Yes Code(s): R50.9 - FEVER, UNSPECIFIED
[2019-05-15] MEDS: TAMSULOSIN HCL 0.4 MG CAP PO SCH (09:24)
[2019-05-15] MEDS: CLOPIDOGREL BISULFATE 75 MG TABLET (FP) PO SCH (09:25)
[2019-05-15] MEDS: FOLIC ACID 1 MG TABLET (FP) PO SCH (09:25)
[2019-05-15] MEDS: FERROUS SO4 325 MG TABLET (FP) PO SCH (09:25)
[2019-05-15] MEDS: METOPROLOL TARTRATE 50 MG TABLET (FP) PO SCH ×2 (09:25→21:08)
[2019-05-15] MEDS: PANTOPRAZOLE 40 MG TABLET (FP) PO SCH (09:25)
[2019-05-15] MEDS: LIDOCAINE 5% TOPICAL PATCH TP SCH (09:29)
[2019-05-15] MEDS: POLYETHYLENE GLYCOL 3350 119 GM BTL PO SCH (09:33)
[2019-05-15] MEDS: HYDROCORTISONE 2.5% TOPICAL CREAM 30 GM TUBE TP SCH (09:33)
[2019-05-15] MEDS: ASPIRIN COATED 81 MG TABLET.EC PO SCH (09:53)
[2019-05-15] MEDS: PHENYLEPHRINE HCL/COCOA BUTTER SUPPOSITORY RC SCH ×2 (09:54→23:21)
--- NOTE | 2019-05-15 11:37 | PN ---
Progress Note (short form) - Note Progress Note: s: no chest pain, palps, dizziness, dyspnea Vital Signs Period Temp Pulse Resp BP Sys/López Pulse Ox Last 24 Hr 98.2 F-101.9 F 91-95 20-20 131-151/54-68 nad no jvd rrr s1s2 no mrg cta bl nl eff aao3 no le e/c/c abd nt nd pos bs no jaundice diaphoresis CBC, BMP 05/14/19 11:09 05/14/19 11:09 Current Medications Generic Name Dose Route Start Last Admin Trade Name Freq PRN Reason Stop Dose Admin Acetaminophen 650 mg 05/13/19 11:57 05/14/19 17:53 Tylenol - PO 650 mg Q6H PRN Administration PAIN OR FEVER Aspirin 81 mg 05/08/19 10:00 05/15/19 09:53 Ecotrin - PO 81 mg DAILY [facility] Administration Atorvastatin Calcium 20 mg 05/07/19 22:00 05/14/19 22:40 Lipitor - PO 20 mg HS [facility]UL Administration Bisacodyl 10 mg 05/07/19 14:11 Dulcolax Suppository - RC PRN PRN CONSTIPATION Clopidogrel Bisulfate 75 mg 05/08/19 10:00 05/15/19 09:25 Plavix - PO 75 mg DAILY [facility] Administration [place] Butter/Phenylephrine 1 each 05/07/19 22:00 05/15/19 09:54 Preparation H Suppository RC 1 each BID [facility] Administration Diphenhydramine HCl 25 mg 05/07/19 14:11 05/12/19 21:35 Benadryl - PO 25 mg Q6H PRN Administration FOR ITCHING Docusate Sodium 100 mg 05/07/19 22:00 05/15/19 06:12 Colace - PO 100 mg TID [facility] Administration Ferrous Sulfate 325 mg 05/08/19 10:00 05/15/19 09:25 Feosol - PO 325 mg DAILY [facility] Administration Folic Acid 1 mg 05/08/19 10:00 05/15/19 09:25 Folic Acid - PO 1 mg DAILY [facility] Administration Gabapentin 300 mg 05/07/19 22:00 05/15/19 06:12 Neurontin - PO 300 mg TID [facility] Administration Hydrocortisone 1 applic 05/08/19 10:00 05/15/19 09:33 Anusol 2.5% Hc Cream - TP 1 applic DAILY [facility] Administration Piperacillin Sod/Tazobactam 50 mls @ 100 mls/hr 05/13/19 11:50 05/15/19 09:25 Sod 3.375 gm/ Dextrose IVPB 100 mls/hr Q8H-IV [facility] Administration Protocol Lidocaine 2 patch 05/10/19 15:30 05/15/19 09:29 Lidoderm Patch - TP 2 patch DAILY [facility] Administration Metoprolol Tartrate 50 mg 05/07/19 22:00 05/15/19 09:25 Lopressor - PO 50 mg BID [facility] Administration Miscellaneous 2 each 05/10/19 22:00 05/14/19 22:41 Lidoderm Patch Removal MC 2 each DAILY@2200 [facility] Administration Naloxone HCl 0.4 mg 05/07/19 14:11 Narcan - IVPUSH ONCE PRN Sedation Ondansetron HCl 4 mg 05/07/19 14:11 Zofran Injection IVPUSH Q4H PRN NAUSEA AND/OR VOMITING Pantoprazole Sodium 40 mg 05/10/19 12:00 05/15/19 09:25 Protonix - PO 40 mg DAILY [facility] Administration Polyethylene Glycol 17 gm 05/07/19 22:00 05/15/19 09:33 Miralax (For Daily Use) - PO Not Given BID [facility] Promethazine HCl 12.5 mg 05/07/19 14:11 Phenergan Injection - IVPB Q6H PRN NAUSEA AND/OR VOMITING Senna 2 tab 05/07/19 22:00 05/14/19 22:40 Senna - PO 2 tab HS [facility] Administration Tamsulosin HCl 0.8 mg 05/08/19 08:30 05/15/19 09:24 Flomax - PO 0.8 mg DAILY@0830 [facility] Administration Witch Megan/Glycerin 1 pad 05/08/19 14:25 05/14/19 06:10 Tucks Pads - TP 1 pad PRN PRN Administration PAIN ecg: sr nl intervals no ischemic changes cxr: clear lungs a/p: 78 m hx htn, hld, cad s/p remote pci, tavr 02/2018, here with low back pain. fevers: -w/u as per ID and PMD -cultures NGTD -no source identified on imaging -Cont IV abx per ID htn: controlled, hemodynamically stable. -cont bb hld: -cont statin cad, remote pci: -stable no angina no signs acs -cont bb, raeann, asa, statin, plavix - last PCI 2009, >1 year since TAVR as s/p tavr: -stable, no signs chf -cont aspirin, plavix- may be able to stop Plavix at this point as > one year post PCI and > 1 year post TAVR, continue plan per outpatient telepathist
--- NOTE | 2019-05-15 11:48 | PN ---
Progress Note (short form) - Note Progress Note: POD #9, s/p L2-L5 lami/decompresison and fusion. Patient seen and examined. Endorses diarrhea multiple times yesterday. Has been oob to the restroom, voiding without issue. C/O lower abdominal pain. Tolerating Po, no n/v. Denies any CP, SOB, N/V, motor/sensory deficits. Vital Signs Temp 100 F H 05/15/19 06:00 Pulse 91 H 05/15/19 06:00 Resp 20 05/15/19 06:00 BP 136/54 L 05/15/19 06:00 Pulse Ox 100 05/14/19 09:00 Intake & Output 05/14/19 05/14/19 05/15/19 11:59 23:59 11:59 Intake Total 450 Balance 450 Intake: IV 50 S/L 50 Oral 400 Other: Voiding Method Urinal Urinal # Unmeasured Voids Void 3 1 Bowel Movement Yes Yes # Bowel Movements 3 1 CBC, BMP 05/14/19 11:09 05/14/19 11:09 GEN: A&0x3, NAD Unlabored resp on RA BACK: incision c/d/i with surrounding tissue intact with no tracking erythema or evidence of collection or d/c. Dressing changed, new 4x4 and tegaderms placed. NEURO: B/L le's dorsi/plantar flexion 5/5, SILT b/l. Able to straight leg raise b/l legs equally. Chest CTA: no evidence of PE or pneumonia Lumbar CT: hardware in place with no evidence of collection A/P: 78 y/o man with PMHx of Chronic Back Pain, CAD s/p stenting, Arthritis admitted / with worsening back pain, now POD #9 s/p lumbar decompression and fusion now with FUO. fevers continuing overnight (tmax 101.9), tachy to high 90s, normotensive Endorses diarrhea and abdominal pain beginning yesterday. Blood cultures negative x 6 Urine culture with gram neg bacilli on 05/11 (no urinary sxs per pt) -Agree with cdiff, f/u results -Consider repeating urine culture -May consider abdo ct if pt continues to have abdominal pain -Encourage OOB up to chair for meals and ambulate with TLSO -Encourage IS -Abx per ID -Continue care per primary team d/w attending Dr Blanca
--- NOTE | 2019-05-15 12:28 | PN ---
Progress Note, Physician History of Present Illness: patient still spiking fever currently afebrile - Current Medication List Current Medications: Active Medications Acetaminophen (Tylenol -) 650 mg PO Q6H PRN PRN Reason: PAIN OR FEVER Last Admin: 05/14/19 17:53 Dose: 650 mg Aspirin (Ecotrin -) 81 mg PO DAILY [facility] Last Admin: 05/15/19 09:53 Dose: 81 mg Atorvastatin Calcium (Lipitor -) 20 mg PO HS [facility] Last Admin: 05/14/19 22:40 Dose: 20 mg Bisacodyl (Dulcolax Suppository -) 10 mg RC PRN PRN PRN Reason: CONSTIPATION Clopidogrel Bisulfate (Plavix -) 75 mg PO DAILY [facility] Last Admin: 05/15/19 09:25 Dose: 75 mg [place] Butter/Phenylephrine (Preparation H Suppository) 1 each RC BID [facility] Last Admin: 05/15/19 09:54 Dose: 1 each Diphenhydramine HCl (Benadryl -) 25 mg PO Q6H PRN PRN Reason: FOR ITCHING Last Admin: 05/12/19 21:35 Dose: 25 mg Docusate Sodium (Colace -) 100 mg PO TID [facility] Last Admin: 05/15/19 06:12 Dose: 100 mg Ferrous Sulfate (Feosol -) 325 mg PO DAILY [facility] Last Admin: 05/15/19 09:25 Dose: 325 mg Folic Acid (Folic Acid -) 1 mg PO DAILY [facility] Last Admin: 05/15/19 09:25 Dose: 1 mg Gabapentin (Neurontin -) 300 mg PO TID [facility] Last Admin: 05/15/19 06:12 Dose: 300 mg Hydrocortisone (Anusol 2.5% Hc Cream -) 1 applic TP DAILY [facility] Last Admin: 05/15/19 09:33 Dose: 1 applic Meropenem 1 gm/ Dextrose 100 mls @ 200 mls/hr IVPB Q8H-IV [facility] Lidocaine (Lidoderm Patch -) 2 patch TP DAILY [facility] Last Admin: 05/15/19 09:29 Dose: 2 patch Metoprolol Tartrate (Lopressor -) 50 mg PO BID [facility] Last Admin: 05/15/19 09:25 Dose: 50 mg Miscellaneous (Lidoderm Patch Removal) 2 each MC DAILY@2200 [facility] Last Admin: 05/14/19 22:41 Dose: 2 each Naloxone HCl (Narcan -) 0.4 mg IVPUSH ONCE PRN PRN Reason: Sedation Ondansetron HCl (Zofran Injection) 4 mg IVPUSH Q4H PRN PRN Reason: NAUSEA AND/OR VOMITING Pantoprazole Sodium (Protonix -) 40 mg PO DAILY [facility] Last Admin: 05/15/19 09:25 Dose: 40 mg Polyethylene Glycol (Miralax (For Daily Use) -) 17 gm PO BID [facility] Last Admin: 05/15/19 09:33 Dose: Not Given Promethazine HCl (Phenergan Injection -) 12.5 mg IVPB Q6H PRN PRN Reason: NAUSEA AND/OR VOMITING Senna (Senna -) 2 tab PO HS [facility] Last Admin: 05/14/19 22:40 Dose: 2 tab Tamsulosin HCl (Flomax -) 0.8 mg PO DAILY@0830 [facility] Last Admin: 05/15/19 09:24 Dose: 0.8 mg [place] Megan/Glycerin (Tucks Pads -) 1 pad TP PRN PRN PRN Reason: PAIN Last Admin: 05/14/19 06:10 Dose: 1 pad - Objective Vital Signs: Vital Signs Temperature 100 F H 05/15/19 06:00 Pulse Rate 91 H 05/15/19 06:00 Respiratory Rate 20 05/15/19 06:00 Blood Pressure 136/54 L 05/15/19 06:00 O2 Sat by Pulse Oximetry (%) 100 05/14/19 09:00 Constitutional: Yes: No Distress, Calm Cardiovascular: Yes: S1, S2 Respiratory: Yes: Regular, CTA Bilaterally Gastrointestinal: Yes: Normal Bowel Sounds, Soft Musculoskeletal: Yes: WNL Extremities: Yes: WNL Wound/Incision: Yes: Dressing Dry and Intact Neurological: Yes: Alert, Oriented Labs: CBC, BMP 05/14/19 11:09 05/14/19 11:09 INR, PTT INR 1.10 (0.83-1.09) H 05/06/19 14:51 Assessment/Plan Problem List - Problems (1) CAD (coronary artery disease) Code(s): I25.10 - ATHSCL HEART DISEASE OF [place] CORONARY ARTERY W/O ANG PCTRS Qualifiers: Coronary Disease-Associated Artery/Lesion type: [place] artery [place] vs. transplanted heart: [place] heart Associated angina: without angina Qualified Code(s): I25.10 - Atherosclerotic heart disease of [place] coronary artery without angina pectoris (2) Intractable back pain Code(s): M54.9 - DORSALGIA, UNSPECIFIED (3) Diabetes 1.5, managed as type 2 Code(s): E13.9 - OTHER SPECIFIED DIABETES MELLITUS WITHOUT COMPLICATIONS (4) HTN (hypertension) Code(s): I10 - ESSENTIAL (PRIMARY) HYPERTENSION Qualifiers: Hypertension type: essential hypertension Qualified Code(s): I10 - Essential (primary) hypertension fever leukocytosis plan patient still spiking fevers on abx i am going to give abx holiday and see if patient stops spiking fever if fevers continue will have to again work him up and then will need to be started on dual coverage
--- NOTE | 2019-05-15 13:59 | CON.GI ---
Consult Consult Specialty:: GI Referred by:: Dr. Vishnu Jones Reason for Consultation:: UGIB per the request - History of Present Illness Chief Complaint: Prolonged hospitalization s/p laminectomy History of Present Illness: 78M with prolonged hospitalization s/p laminectomy. Has prolapsed internal hemorrhoids that were evaluated by surgery this admission. Last colonoscopy 10 years per patient. Occasional abdominal cramping. Per nurse nor rectal bleeding or melena reported. No copious diarrhea. Loose bowel movements but also has been receiving colace and senna. No family history of colon cancer. Normocytic anemia noted from admission. - History Source History Provided By: Patient, Medical Record - Past Medical History Cardio/Vascular: Yes: CAD, HTN, Hyperlipdemia Gastrointestinal: Yes: Hemorrhoids Musculoskeletal: Yes: Chronic low back pain, Osteoarthritis - Past Surgical History Past Surgical History: Yes: Hernia Repair ([facility]), Stent (cardiac and LE), Tonsillectomy, Valve Replacement (TAVR 2016) Additional Surgical History: angioplasty. Cardiac stent 2005, cardiac stents x 3 2009 - Alcohol/Substance Use Hx Alcohol Use: Yes (occasional) History of Substance Use: reports: None - Smoking History Smoking history: Current some day smoker Have you smoked in the past 12 months: Yes If you are a former smoker, when did you quit?: quit 14 years ago but resumed occasional smoking recently - Social History Usual Living Arrangement: Alone ADL: Independent Place of : Other ([place]) Came to [place]year[place] 1974 History of Recent Travel: No Home Medications - Allergies Allergies/Adverse Reactions: Allergies Allergy/AdvReac Type Severity Reaction Status Date / Time No Known Allergies Allergy Verified 04/24/19 22:13 - Home Medications Home Medications: Ambulatory Orders Acetaminophen [Tylenol] 325 mg PO PRN PRN 04/25/19 Aspirin [ASA -] 81 mg PO DAILY 04/25/19 Clopidogrel Bisulfate [Clopidogrel] 75 mg PO DAILY 04/25/19 Docusate Sodium 100 mg PO BID 04/25/19 Gabapentin 100 mg PO TID 04/25/19 Heparin - 5,000 unit SQ TID 04/25/19 Lidocaine [Aspercreme] 1 each TP DAILY 04/25/19 Lisinopril 20 mg PO DAILY 04/25/19 Metoprolol Tartrate 50 mg PO DAILY 04/25/19 Oxycodone HCl 5 mg PO PRN PRN 04/25/19 Sennosides [Senna] 8.6 mg PO BID 04/25/19 Simvastatin 40 mg PO HS 04/25/19 Tizanidine HCl 2 mg PO TID 04/25/19 Family Medical History Other Family History: Father: : CVA. Mother: : Lung Cancer (smoker). siblings . No family history of colon cancer or other GI malignancy Review of Systems - Review of Systems Constitutional: denies: Fever, Unintentional Wgt. Loss Cardiovascular: denies: Chest Pain Respiratory: denies: SOB Gastrointestinal: reports: Abdominal Pain, Diarrhea. denies: Melena, Rectal Bleeding Musculoskeletal: reports: Back Pain Physical Exam-GI Vital Signs: Vital Signs Temperature 98.3 F 05/15/19 10:00 Pulse Rate 91 H 05/15/19 10:00 Respiratory Rate 20 05/15/19 10:00 Blood Pressure 148/63 05/15/19 10:00 O2 Sat by Pulse Oximetry (%) 100 05/14/19 09:00 Constitutional: Yes: Calm Eyes: No: Sclera Icterus Cardiovascular: Yes: Regular Rate and Rhythm Respiratory: Yes: CTA Bilaterally Gastrointestinal Inspection: Yes: Scars (right oblique inguinal surgical scar). No: Distention ...Auscultate: Yes: Normoactive Bowel Sounds ...Palpate: Yes: Soft. No: Hepatomegaly, Splenomegaly, Tenderness ...Percussion: No: Tympanitic ...Rectal Exam: Yes: Other (+ prolapsed internal hemorrhoids that were able to be manually reduced. No blood, melena) Edema: No Neurological: Yes: Alert Labs: CBC, BMP 05/14/19 11:09 05/14/19 11:09 INR, PTT INR 1.10 (0.83-1.09) H 05/06/19 14:51 Problem List - Problems (1) Anemia Assessment/Plan: Normocytic anemia without overt bleeding. Normal BUN not supportive of upper GI bleeding source and noted guaiac negative 05/11. COnsider hematology evaluation and outpatient GI evaluation when acute issues are resolved and with plavix held. Likely will need internal hemorrhoids dealt with as well as this will make bowel preparation for colonoscopy difficult for the patient. Added protonix 20mg once daily for GI prophylaxis. Discontinued hydrocortisone cream for now. Code(s): D64.9 - ANEMIA, UNSPECIFIED Qualifiers: Anemia type: unspecified type Qualified Code(s): D64.9 - Anemia, unspecified (2) Change in bowel habits Assessment/Plan: No adilene diarrhea reported by nursing. He has been on colace and senna. I discontinued them. MiraLAX 17g as needed for constipation. If worsening diarrhea, stool for C. Diff Code(s): R19.4 - CHANGE IN BOWEL HABIT
[2019-05-15] MEDS ORDERED: POLYETHYLENE GLYCOL 3350 119 GM BTL PO PRN (14:09)
[2019-05-15] MEDS ORDERED: PT OWN MED DRAWER 7, Y5N ONE ×2 (16:43→22:39)
[2019-05-15] MEDS ORDERED: MEROPENEM 1 GM in DEXTROSE 5%-WATER 100 ML IVPB SCH (18:00)
[2019-05-15] MEDS: ATORVASTATIN CA 20 MG TABLET (FP) PO SCH (21:08)
[2019-05-15] MEDS: LIDOCAINE PATCH REMOVAL MC SCH (21:08)
[2019-05-15] MEDS: ACETAMINOPHEN 325 MG TABLET (FP) PO PRN (21:13)
[2019-05-15] MEDS ORDERED: HYDROCORTISONE 2.5% TOPICAL CREAM 30 GM TUBE TP SCH (22:00)
[2019-05-16] MEDS: ACETAMINOPHEN 325 MG TABLET (FP) PO PRN (03:03)
[2019-05-16] MEDS: GABAPENTIN 300 MG CAPSULE (FP) PO SCH ×3 (06:06→21:13)
[2019-05-16 08:17] LABS: BASO % 0.3 % (0-2.0); EOS % 0.9 % (0-4.5); HEMATOCRIT 25.6 % (35.4-49); HEMOGLOBIN 8.8 GM/dL (11.7-16.9); LYMPH % 8.5 % (8-40); MCH 30.3 pg (25.7-33.7); MCHC 34.4 g/dl (32.0-35.9); MEAN CELL VOLUME 87.9 fl (80-96); MEAN PLT VOLUME 8.4 fl (7.5-11.1); MONO % 7.1 % (3.8-10.2); NEUT % 83.2 % (42.8-82.8); PLATELET COUNT 369 K/MM3 (134-434); RBC 2.91 M/mm3 (4.00-5.60); RDW 15.1 % (11.9-15.9); WHITE BLOOD COUNT 8.4 K/mm3 (4.0-10.0)
[2019-05-16 08:43] LABS: ALBUMIN 2.5 g/dl (3.4-5.0); BILIRUBIN,TOTAL 0.6 mg/dL (0.2-1); BLOOD UREA NITROGEN 14.6 mg/dL (7-18); CALCIUM 8.8 mg/dL (8.5-10.1); CREATININE 0.8 mg/dL (0.55-1.3); POTASSIUM 4.8 mmol/L (3.5-5.1); TOT PROT 6.1 g/dl (6.4-8.2)
--- NOTE | 2019-05-16 08:46 | PN ---
Progress Note, Physician Chief Complaint: C/o RLE pain, on and off, low grade T. No diarrhea, no abdominal pain. History of Present Illness: PMH EXTERNAL HEMORRHOIDS. OLD LEFT rib fractures LOW Back pain radiating down RLE. NEUROGENIC CLAUDICATION. WEIGHT LOSS 20 LBS. DM type 2 STABLE ANGINA ANGIOPLASTY 1989 [facility] STENTS X3 2006 ANDS X3 2010 [facility] in the past RCA/LAD/LCX , TAVR 02/26/2018 IN [place]. ALEX HTN HLD SCLERODERMA. REYNAUD'S SYNDROME. RIH REPAIR 1957 PVD, LLE STENT.CLAUDICATION. CRI/CKD 3, BPH TINNITUS - Current Medication List Current Medications: Active Medications Acetaminophen (Tylenol -) 650 mg PO Q6H PRN PRN Reason: PAIN OR FEVER Last Admin: 05/16/19 03:03 Dose: 650 mg Aspirin (Ecotrin -) 81 mg PO DAILY [facility] Last Admin: 05/15/19 09:53 Dose: 81 mg Atorvastatin Calcium (Lipitor -) 20 mg PO HS [facility] Last Admin: 05/15/19 21:08 Dose: 20 mg Clopidogrel Bisulfate (Plavix -) 75 mg PO DAILY [facility] Last Admin: 05/15/19 09:25 Dose: 75 mg [place] Butter/Phenylephrine (Preparation H Suppository) 1 each RC BID [facility] Last Admin: 05/15/19 23:21 Dose: 1 each Diphenhydramine HCl (Benadryl -) 25 mg PO Q6H PRN PRN Reason: FOR ITCHING Last Admin: 05/12/19 21:35 Dose: 25 mg Ferrous Sulfate (Feosol -) 325 mg PO DAILY [facility] Last Admin: 05/15/19 09:25 Dose: 325 mg Folic Acid (Folic Acid -) 1 mg PO DAILY [facility] Last Admin: 05/15/19 09:25 Dose: 1 mg Gabapentin (Neurontin -) 300 mg PO TID [facility] Last Admin: 05/16/19 06:06 Dose: 300 mg Lidocaine (Lidoderm Patch -) 2 patch TP DAILY [facility] Last Admin: 05/15/19 09:29 Dose: 2 patch Metoprolol Tartrate (Lopressor -) 50 mg PO BID [facility] Last Admin: 05/15/19 21:08 Dose: 50 mg Miscellaneous (Lidoderm Patch Removal) 2 each MC DAILY@2200 [facility] Last Admin: 05/15/19 21:08 Dose: 2 each Naloxone HCl (Narcan -) 0.4 mg IVPUSH ONCE PRN PRN Reason: Sedation Ondansetron HCl (Zofran Injection) 4 mg IVPUSH Q4H PRN PRN Reason: NAUSEA AND/OR VOMITING Pantoprazole Sodium (Protonix -) 20 mg PO DAILY [facility] Polyethylene Glycol (Miralax (For Daily Use) -) 17 gm PO DAILY [facility] Promethazine HCl (Phenergan Injection -) 12.5 mg IVPB Q6H PRN PRN Reason: NAUSEA AND/OR VOMITING Tamsulosin HCl (Flomax -) 0.8 mg PO DAILY@0830 [facility] Last Admin: 05/15/19 09:24 Dose: 0.8 mg Witch Megan/Glycerin (Tucks Pads -) 1 pad TP PRN PRN PRN Reason: PAIN Last Admin: 05/14/19 06:10 Dose: 1 pad - Objective Vital Signs: Vital Signs Temperature 98.5 F 05/16/19 06:45 Pulse Rate 81 05/16/19 06:45 Respiratory Rate 20 05/16/19 06:45 Blood Pressure 138/76 05/16/19 06:45 O2 Sat by Pulse Oximetry (%) 100 05/15/19 21:00 Constitutional: Yes: Anxious, Mild Distress Eyes: Yes: Conjunctiva Clear, EOM Intact HENT: Yes: Atraumatic, Normocephalic. No: Drooling Neck: Yes: Supple, Trachea Midline. No: Lymphadenopathy, Rigid Cardiovascular: Yes: Regular Rate and Rhythm. No: Bradycardia, Tachycardia, Bruit, JVD Respiratory: Yes: Regular, CTA Bilaterally. No: Accessory Muscle Use Gastrointestinal: Yes: Normal Bowel Sounds, Soft, Hemorrhoids. No: Abdomen, Obese, Ascites, Distention, Hepatomegaly, Palpable Mass, Pulsatile Mass, Tenderness, Tenderness, Rebound, Vomiting ...Rectal Exam: Yes: Deferred Genitourinary: No: Anuria, Bladder Distention, CVA Tenderness - Left, CVA Tenderness - Right Breast(s): Yes: WNL Musculoskeletal: Yes: Back Pain Extremities: Yes: Other (RLE pain). No: Calf Tenderness, Cold Edema: No Peripheral Pulses WNL: Yes Wound/Incision: Yes: Clean/Dry Neurological: Yes: Alert, Oriented, Unsteady Gait. No: Aphasia, Asterixis, Ataxia, Lethargy, Seizure, Tremors, Unresponsive Psychiatric: Yes: WNL Labs: CBC, BMP 05/16/19 07:35 INR, PTT INR 1.10 (0.83-1.09) H 05/06/19 14:51 Problem List - Problems (1) CAD (coronary artery disease) Assessment/Plan: CONTINUE STATINS, PLAVIX/ASA CARDIOLOGY F/U. Code(s): I25.10 - ATHSCL HEART DISEASE OF [place] CORONARY ARTERY W/O ANG PCTRS Qualifiers: Coronary Disease-Associated Artery/Lesion type: [place] artery [place] vs. transplanted heart: [place] heart Associated angina: without angina Qualified Code(s): I25.10 - Atherosclerotic heart disease of [place] coronary artery without angina pectoris (2) Intractable back pain Assessment/Plan: S/P LS LAMINECTOMY. Discussed with surgical team Pending rehab post op continue pain management PT/OOB Code(s): M54.9 - DORSALGIA, UNSPECIFIED (3) Diabetes 1.5, managed as type 2 Assessment/Plan: bgm -controlled Code(s): E13.9 - OTHER SPECIFIED DIABETES MELLITUS WITHOUT COMPLICATIONS (4) HTN (hypertension) Assessment/Plan: Conbtrolled Goal < 140/80P Code(s): I10 - ESSENTIAL (PRIMARY) HYPERTENSION Qualifiers: Hypertension type: essential hypertension Qualified Code(s): I10 - Essential (primary) hypertension (5) Fever Assessment/Plan: OFF Abx and observe with ID Negative blood culture Last night low grade T, normal WBC today. Code(s): R50.9 - FEVER, UNSPECIFIED
[2019-05-16] MEDS: LIDOCAINE 5% TOPICAL PATCH TP SCH (09:17)
[2019-05-16] MEDS: PANTOPRAZOLE 20 MG TABLET (FP) PO SCH (09:17)
[2019-05-16] MEDS: TAMSULOSIN HCL 0.4 MG CAP PO SCH (09:17)
[2019-05-16] MEDS: ASPIRIN COATED 81 MG TABLET.EC PO SCH (09:18)
[2019-05-16] MEDS: METOPROLOL TARTRATE 50 MG TABLET (FP) PO SCH ×2 (09:18→21:13)
[2019-05-16] MEDS: FERROUS SO4 325 MG TABLET (FP) PO SCH (09:18)
[2019-05-16] MEDS: CLOPIDOGREL BISULFATE 75 MG TABLET (FP) PO SCH (09:18)
[2019-05-16] MEDS ORDERED: PT OWN MED DRAWER 7, Y5N ONE (09:25)
[2019-05-16] MEDS: FOLIC ACID 1 MG TABLET (FP) PO SCH (09:26)
[2019-05-16] MEDS: PHENYLEPHRINE HCL/COCOA BUTTER SUPPOSITORY RC SCH ×2 (09:27→21:13)
[2019-05-16] MEDS: POLYETHYLENE GLYCOL 3350 119 GM BTL PO SCH (09:27)
[2019-05-16 10:36] LABS: ANISOCYTOSIS 1+; MACROCYTOSIS 1+; OVALOCYTE 1+; PLATELET ESTIMATE NORMAL; TARGET CELLS 1+; TEAR DROP CELLS 1+
--- NOTE | 2019-05-16 11:30 | PN ---
Progress Note, Physician History of Present Illness: stable had low grade fever once has been afebrile since then - Current Medication List Current Medications: Active Medications Acetaminophen (Tylenol -) 650 mg PO Q6H PRN PRN Reason: PAIN OR FEVER Last Admin: 05/16/19 03:03 Dose: 650 mg Aspirin (Ecotrin -) 81 mg PO DAILY [facility] Last Admin: 05/16/19 09:18 Dose: 81 mg Atorvastatin Calcium (Lipitor -) 20 mg PO HS [facility] Last Admin: 05/15/19 21:08 Dose: 20 mg Clopidogrel Bisulfate (Plavix -) 75 mg PO DAILY [facility] Last Admin: 05/16/19 09:18 Dose: 75 mg [place] Butter/Phenylephrine (Preparation H Suppository) 1 each RC BID [facility] Last Admin: 05/16/19 09:27 Dose: 1 each Diphenhydramine HCl (Benadryl -) 25 mg PO Q6H PRN PRN Reason: FOR ITCHING Last Admin: 05/12/19 21:35 Dose: 25 mg Ferrous Sulfate (Feosol -) 325 mg PO DAILY [facility] Last Admin: 05/16/19 09:18 Dose: 325 mg Folic Acid (Folic Acid -) 1 mg PO DAILY [facility] Last Admin: 05/16/19 09:26 Dose: 1 mg Gabapentin (Neurontin -) 300 mg PO TID [facility] Last Admin: 05/16/19 06:06 Dose: 300 mg Lidocaine (Lidoderm Patch -) 2 patch TP DAILY [facility] Last Admin: 05/16/19 09:17 Dose: 2 patch Metoprolol Tartrate (Lopressor -) 50 mg PO BID [facility] Last Admin: 05/16/19 09:18 Dose: 50 mg Miscellaneous (Lidoderm Patch Removal) 2 each MC DAILY@2200 [facility] Last Admin: 05/15/19 21:08 Dose: 2 each Naloxone HCl (Narcan -) 0.4 mg IVPUSH ONCE PRN PRN Reason: Sedation Ondansetron HCl (Zofran Injection) 4 mg IVPUSH Q4H PRN PRN Reason: NAUSEA AND/OR VOMITING Pantoprazole Sodium (Protonix -) 20 mg PO DAILY [facility] Last Admin: 05/16/19 09:17 Dose: 20 mg Polyethylene Glycol (Miralax (For Daily Use) -) 17 gm PO DAILY [facility] Last Admin: 05/16/19 09:27 Dose: 17 gm Promethazine HCl (Phenergan Injection -) 12.5 mg IVPB Q6H PRN PRN Reason: NAUSEA AND/OR VOMITING Tamsulosin HCl (Flomax -) 0.8 mg PO DAILY@0830 [facility] Last Admin: 05/16/19 09:17 Dose: 0.8 mg Witch Megan/Glycerin (Tucks Pads -) 1 pad TP PRN PRN PRN Reason: PAIN Last Admin: 05/14/19 06:10 Dose: 1 pad - Objective Vital Signs: Vital Signs Temperature 98.5 F 05/16/19 06:45 Pulse Rate 81 05/16/19 06:45 Respiratory Rate 20 05/16/19 06:45 Blood Pressure 138/76 05/16/19 06:45 O2 Sat by Pulse Oximetry (%) 100 05/15/19 21:00 Constitutional: Yes: No Distress, Calm Cardiovascular: Yes: S1, S2 Respiratory: Yes: Regular, CTA Bilaterally Gastrointestinal: Yes: Normal Bowel Sounds, Soft Musculoskeletal: Yes: WNL Extremities: Yes: WNL Wound/Incision: Yes: Clean/Dry Neurological: Yes: Alert, Oriented Psychiatric: Yes: Alert, Oriented Labs: CBC, BMP 05/16/19 07:35 05/16/19 07:35 INR, PTT INR 1.10 (0.83-1.09) H 05/06/19 14:51 Assessment/Plan Problem List - Problems (1) CAD (coronary artery disease) Code(s): I25.10 - ATHSCL HEART DISEASE OF [place] CORONARY ARTERY W/O ANG PCTRS Qualifiers: Coronary Disease-Associated Artery/Lesion type: [place] artery [place] vs. transplanted heart: [place] heart Associated angina: without angina Qualified Code(s): I25.10 - Atherosclerotic heart disease of [place] coronary artery without angina pectoris (2) Intractable back pain Code(s): M54.9 - DORSALGIA, UNSPECIFIED (3) Diabetes 1.5, managed as type 2 Code(s): E13.9 - OTHER SPECIFIED DIABETES MELLITUS WITHOUT COMPLICATIONS (4) HTN (hypertension) Code(s): I10 - ESSENTIAL (PRIMARY) HYPERTENSION Qualifiers: Hypertension type: essential hypertension Qualified Code(s): I10 - Essential (primary) hypertension fever leukocytosis plan will continue to monior off of abx close watch rest as per the team physio
--- NOTE | 2019-05-16 11:58 | PN ---
Progress Note, Physician Chief Complaint: denies CP, SOB, dizziness - Current Medication List Current Medications: Active Medications Acetaminophen (Tylenol -) 650 mg PO Q6H PRN PRN Reason: PAIN OR FEVER Last Admin: 05/16/19 03:03 Dose: 650 mg Aspirin (Ecotrin -) 81 mg PO DAILY [facility] Last Admin: 05/16/19 09:18 Dose: 81 mg Atorvastatin Calcium (Lipitor -) 20 mg PO HS [facility] Last Admin: 05/15/19 21:08 Dose: 20 mg Clopidogrel Bisulfate (Plavix -) 75 mg PO DAILY [facility] Last Admin: 05/16/19 09:18 Dose: 75 mg [place] Butter/Phenylephrine (Preparation H Suppository) 1 each RC BID [facility] Last Admin: 05/16/19 09:27 Dose: 1 each Diphenhydramine HCl (Benadryl -) 25 mg PO Q6H PRN PRN Reason: FOR ITCHING Last Admin: 05/12/19 21:35 Dose: 25 mg Ferrous Sulfate (Feosol -) 325 mg PO DAILY [facility] Last Admin: 05/16/19 09:18 Dose: 325 mg Folic Acid (Folic Acid -) 1 mg PO DAILY [facility] Last Admin: 05/16/19 09:26 Dose: 1 mg Gabapentin (Neurontin -) 300 mg PO TID [facility] Last Admin: 05/16/19 06:06 Dose: 300 mg Lidocaine (Lidoderm Patch -) 2 patch TP DAILY [facility] Last Admin: 05/16/19 09:17 Dose: 2 patch Metoprolol Tartrate (Lopressor -) 50 mg PO BID [facility] Last Admin: 05/16/19 09:18 Dose: 50 mg Miscellaneous (Lidoderm Patch Removal) 2 each MC DAILY@2200 [facility] Last Admin: 05/15/19 21:08 Dose: 2 each Naloxone HCl (Narcan -) 0.4 mg IVPUSH ONCE PRN PRN Reason: Sedation Ondansetron HCl (Zofran Injection) 4 mg IVPUSH Q4H PRN PRN Reason: NAUSEA AND/OR VOMITING Pantoprazole Sodium (Protonix -) 20 mg PO DAILY [facility] Last Admin: 05/16/19 09:17 Dose: 20 mg Polyethylene Glycol (Miralax (For Daily Use) -) 17 gm PO DAILY [facility] Last Admin: 05/16/19 09:27 Dose: 17 gm Promethazine HCl (Phenergan Injection -) 12.5 mg IVPB Q6H PRN PRN Reason: NAUSEA AND/OR VOMITING Tamsulosin HCl (Flomax -) 0.8 mg PO DAILY@0830 [facility] Last Admin: 05/16/19 09:17 Dose: 0.8 mg Witch Megan/Glycerin (Tucks Pads -) 1 pad TP PRN PRN PRN Reason: PAIN Last Admin: 05/14/19 06:10 Dose: 1 pad - Objective Vital Signs: Vital Signs Temperature 98.5 F 05/16/19 06:45 Pulse Rate 81 05/16/19 06:45 Respiratory Rate 20 05/16/19 06:45 Blood Pressure 138/76 05/16/19 06:45 O2 Sat by Pulse Oximetry (%) 100 05/15/19 21:00 Constitutional: Yes: No Distress Cardiovascular: Yes: Regular Rate and Rhythm Respiratory: Yes: CTA Bilaterally Gastrointestinal: Yes: Soft Edema: No Neurological: Yes: Alert, Oriented Labs: CBC, BMP 05/16/19 07:35 05/16/19 07:35 INR, PTT INR 1.10 (0.83-1.09) H 05/06/19 14:51 - ....Imaging EKG: Image Reviewed Assessment/Plan a/p: 78 m hx htn, hld, cad s/p remote pci, tavr 02/2018, here with low back pain. fevers: -w/u as per ID and PMD -cultures NGTD -no source identified on imaging -as per ID htn: controlled, hemodynamically stable. -cont bb hld: -cont statin cad, remote pci: -stable no angina no signs acs -cont bb, raeann, asa, statin, plavix - last PCI 2009, >1 year since TAVR as s/p tavr: -stable, no signs chf -cont aspirin, plavix- may be able to stop Plavix at this point as > one year post PCI and > 1 year post TAVR, continue plan per outpatient mechanical technical service specialist Hyponatremia: -Does not appear volume overloaded, as per PMD -CXR.
--- NOTE | 2019-05-16 13:56 | PN ---
Progress Note (short form) - Note Progress Note: 78yo M s/p L2-L5 PLIF, pt seen and examined at bedside. Pt states that his abd pain has improved and diarrhea has stopped. Pt was afebrile overnight. Pt states feeling better in general. Last Vital Signs Temp Pulse Resp BP Pulse Ox 98.5 F 81 20 138/76 100 05/16/19 06:45 05/16/19 06:45 05/16/19 06:45 05/16/19 06:45 05/15/19 21:00 CBC, BMP 05/16/19 07:35 05/16/19 07:35 GEN: A&0x3, NAD Unlabored resp on RA BACK: incision c/d/i with surrounding tissue intact with no tracking erythema or evidence of collection NEURO: B/L le's dorsi/plantar flexion 5/5, SILT b/l. Able to straight leg raise b/l legs equally. Problem List - Problems (1) S/P lumbar spinal fusion Assessment/Plan: Plan -pt is cleared from surgical standpoint for discharge to rehab, will defer to medicine/ID for clearance. -pt should follow up with Dr. Porter in 2 weeks as outpatient Case discussed with Dr. Porter, who agrees with plan Code(s): Z98.1 - ARTHRODESIS STATUS
[2019-05-16] MEDS: ATORVASTATIN CA 20 MG TABLET (FP) PO SCH (21:13)
[2019-05-16] MEDS: LIDOCAINE PATCH REMOVAL MC SCH (21:13)
[2019-05-17] MEDS ORDERED: PT OWN MED DRAWER 7, Y5N ONE ×2 (00:36→09:08)
[2019-05-17] MEDS: ACETAMINOPHEN 325 MG TABLET (FP) PO PRN (00:39)
[2019-05-17] MEDS: GABAPENTIN 300 MG CAPSULE (FP) PO SCH ×2 (06:12→14:04)
[2019-05-17] MEDS: FERROUS SO4 325 MG TABLET (FP) PO SCH (09:17)
[2019-05-17] MEDS: LIDOCAINE 5% TOPICAL PATCH TP SCH (09:17)
[2019-05-17] MEDS: METOPROLOL TARTRATE 50 MG TABLET (FP) PO SCH (09:17)
[2019-05-17] MEDS: ASPIRIN COATED 81 MG TABLET.EC PO SCH (09:17)
[2019-05-17] MEDS: FOLIC ACID 1 MG TABLET (FP) PO SCH (09:17)
[2019-05-17] MEDS: TAMSULOSIN HCL 0.4 MG CAP PO SCH (09:18)
[2019-05-17] MEDS: PHENYLEPHRINE HCL/COCOA BUTTER SUPPOSITORY RC SCH (09:18)
[2019-05-17] MEDS: PANTOPRAZOLE 20 MG TABLET (FP) PO SCH (09:18)
[2019-05-17] MEDS: CLOPIDOGREL BISULFATE 75 MG TABLET (FP) PO SCH (09:18)
[2019-05-17] MEDS: POLYETHYLENE GLYCOL 3350 119 GM BTL PO SCH (09:20)
--- NOTE | 2019-05-17 14:12 | DS ---
Physical Exam: SUBJECTIVE: Patient seen and examined OBJECTIVE: Vital Signs Period Temp Pulse Resp BP Sys/López Pulse Ox Last 24 Hr 98.2 F-98.5 F 85-91 18-20 117-139/55-61 99-100 PHYSICAL EXAM GENERAL: The patient is awake, alert, and fully oriented, in no acute distress. HEAD: Normal with no signs of trauma. EYES: PERRL, sclera anicteric, conjunctiva clear. ENT: Ears normal, nares patent, oropharynx clear without exudates, moist mucous membranes. + upper and lower dentures NECK: Trachea midline, full range of motion, supple. LUNGS: Breath sounds equal, clear to auscultation bilaterally, no wheezes, no crackles, no accessory muscle use. HEART: Regular rate and rhythm, S1, S2 without murmur, rub or gallop. ABDOMEN: Soft, nontender, nondistended, normoactive bowel sounds, no guarding, no rebound, EXTREMITIES: 2+ pulses, warm, well-perfused, no edema. NEUROLOGICAL: speech normal, gait not observed. SPINE: Lumbar spine with sterile dressing, small spots of blood noted. no redness or exudate. PSYCH: Normal mood, normal affect. SKIN: Warm, dry, normal turgor, no rashes or lesions noted. LABS Laboratory Results - last 24 hr 04/24/19 04/24/19 04/24/19 23:25 23:25 23:32 WBC 6.3 RBC 3.54 L Hgb 10.7 L Hct 32.3 L MCV 91.3 MCH 30.2 MCHC 33.1 RDW 14.3 Plt Count 124 L MPV 9.3 Absolute Neuts (auto) 4.3 Neutrophils % 68.5 Lymphocytes % 21.4 Monocytes % 8.1 Eosinophils % 1.4 Basophils % 0.6 Nucleated RBC % 0 PT with INR INR PTT (Actin FS) Sodium 135 L Potassium 3.9 Chloride 103 Carbon Dioxide 22 Anion Gap 10 BUN 16.3 Creatinine 1.3 Est GFR (CKD-EPI)AfAm 61.00 Est GFR (CKD-EPI)NonAf 52.63 POC Glucometer Random Glucose 76 Lactic Acid Calcium 9.0 Phosphorus Magnesium Iron TIBC Iron Saturation Unsaturated IBC Ferritin Total Bilirubin 0.4 AST 24 ALT 23 Alkaline Phosphatase 61 Total Protein 6.5 Albumin 3.4 Vitamin B12 Serum Folate Urine Color Urine Appearance Urine pH Ur Specific [place] Urine Protein Urine Glucose (UA) Urine Ketones Urine Blood Urine Nitrite Urine Bilirubin Urine Urobilinogen Ur Leukocyte Esterase Urine WBC (Auto) Urine RBC (Auto) Urine Casts (Auto) U Pathogenic Cast Auto U Epithel Cells (Auto) Urine Bacteria (Auto) Stool Occult Blood Salicylates 4.5 Acetaminophen 28.2 04/26/19 04/26/19 04/26/19 07:52 07:52 11:26 WBC 7.3 RBC 3.95 L Hgb 12.0 Hct 35.8 MCV 90.6 MCH 30.4 MCHC 33.6 RDW 14.5 Plt Count 174 D MPV 8.6 Absolute Neuts (auto) Neutrophils % Lymphocytes % Monocytes % Eosinophils % Basophils % Nucleated RBC % PT with INR INR PTT (Actin FS) Sodium 136 Potassium 4.9 Chloride 102 Carbon Dioxide 22 Anion Gap 12 BUN 16.3 Creatinine 1.0 Est GFR (CKD-EPI)AfAm 83.77 Est GFR (CKD-EPI)NonAf 72.28 POC Glucometer 117 Random Glucose 66 L Lactic Acid Calcium 9.7 Phosphorus Magnesium Iron TIBC Iron Saturation Unsaturated IBC Ferritin Total Bilirubin 0.5 AST 27 ALT 29 Alkaline Phosphatase 66 Total Protein 7.2 Albumin 3.6 Vitamin B12 Serum Folate Urine Color Urine Appearance Urine pH Ur Specific [place] Urine Protein Urine Glucose (UA) Urine Ketones Urine Blood Urine Nitrite Urine Bilirubin Urine Urobilinogen Ur Leukocyte Esterase Urine WBC (Auto) Urine RBC (Auto) Urine Casts (Auto) U Pathogenic Cast Auto U Epithel Cells (Auto) Urine Bacteria (Auto) Stool Occult Blood Salicylates Acetaminophen 04/26/19 04/26/19 04/27/19 12:00 17:07 06:00 WBC RBC Hgb Hct MCV MCH MCHC RDW Plt Count MPV Absolute Neuts (auto) Neutrophils % Lymphocytes % Monocytes % Eosinophils % Basophils % Nucleated RBC % PT with INR INR PTT (Actin FS) Sodium 140 Potassium 5.0 Chloride 104 Carbon Dioxide 27 Anion Gap 9 BUN 20.5 H Creatinine 1.2 Est GFR (CKD-EPI)AfAm 67.20 Est GFR (CKD-EPI)NonAf 57.98 POC Glucometer 111 Random Glucose 89 Lactic Acid Calcium 9.6 Phosphorus Magnesium 2.2 Iron TIBC Iron Saturation Unsaturated IBC Ferritin Total Bilirubin 0.3 AST 21 ALT 31 Alkaline Phosphatase 63 Total Protein 7.0 Albumin 3.5 Vitamin B12 Serum Folate Urine Color Yellow Urine Appearance Cloudy Urine pH 5.0 Ur Specific [place] 1.011 Urine Protein Negative Urine Glucose (UA) Negative Urine Ketones 1+ H Urine Blood 1+ H Urine Nitrite Negative Urine Bilirubin Negative Urine Urobilinogen 0.2 Ur Leukocyte Esterase 2+ H Urine WBC (Auto) 130 Urine RBC (Auto) 6 Urine Casts (Auto) 107 U Pathogenic Cast Auto Wbc cast=few U Epithel Cells (Auto) 0.7 Urine Bacteria (Auto) 8.1 Stool Occult Blood Salicylates Acetaminophen 04/27/19 04/27/19 04/27/19 09:21 11:13 21:00 WBC 6.8 RBC 3.88 L Hgb 11.7 Hct 35.4 MCV 91.2 MCH 30.2 MCHC 33.1 RDW 14.1 Plt Count 172 MPV 8.7 Absolute Neuts (auto) 5.2 Neutrophils % 76.5 Lymphocytes % 15.9 D Monocytes % 5.7 Eosinophils % 1.5 Basophils % 0.4 Nucleated RBC % 0 PT with INR INR PTT (Actin FS) Sodium Potassium Chloride Carbon Dioxide Anion Gap BUN Creatinine Est GFR (CKD-EPI)AfAm Est GFR (CKD-EPI)NonAf POC Glucometer 142 103 Random Glucose Lactic Acid Calcium Phosphorus Magnesium Iron TIBC Iron Saturation Unsaturated IBC Ferritin Total Bilirubin AST ALT Alkaline Phosphatase Total Protein Albumin Vitamin B12 Serum Folate Urine Color Urine Appearance Urine pH Ur Specific [place] Urine Protein Urine Glucose (UA) Urine Ketones Urine Blood Urine Nitrite Urine Bilirubin Urine Urobilinogen Ur Leukocyte Esterase Urine WBC (Auto) Urine RBC (Auto) Urine Casts (Auto) U Pathogenic Cast Auto U Epithel Cells (Auto) Urine Bacteria (Auto) Stool Occult Blood Salicylates Acetaminophen 04/28/19 04/28/19 04/28/19 06:02 11:18 11:18 WBC 6.7 RBC 3.95 L Hgb 11.9 Hct 36.0 MCV 91.2 MCH 30.1 MCHC 33.0 RDW 14.3 Plt Count 169 MPV 9.4 Absolute Neuts (auto) 5.2 Neutrophils % 77.6 Lymphocytes % 15.6 Monocytes % 4.6 Eosinophils % 1.7 Basophils % 0.5 Nucleated RBC % 0 PT with INR INR PTT (Actin FS) Sodium 137 Potassium 4.5 Chloride 101 Carbon Dioxide 28 Anion Gap 8 BUN 26.9 H Creatinine 1.7 H Est GFR (CKD-EPI)AfAm 44.10 Est GFR (CKD-EPI)NonAf 38.05 POC Glucometer 96 Random Glucose 111 H Lactic Acid Calcium 9.3 Phosphorus Magnesium 2.3 Iron TIBC Iron Saturation Unsaturated IBC Ferritin Total Bilirubin 0.3 AST 21 ALT 29 Alkaline Phosphatase 63 Total Protein 7.0 Albumin 3.4 Vitamin B12 Serum Folate Urine Color Urine Appearance Urine pH Ur Specific [place] Urine Protein Urine Glucose (UA) Urine Ketones Urine Blood Urine Nitrite Urine Bilirubin Urine Urobilinogen Ur Leukocyte Esterase Urine WBC (Auto) Urine RBC (Auto) Urine Casts (Auto) U Pathogenic Cast Auto U Epithel Cells (Auto) Urine Bacteria (Auto) Stool Occult Blood Salicylates Acetaminophen 04/28/19 04/29/19 04/29/19 17:17 11:42 11:48 WBC 6.8 RBC 3.72 L Hgb 11.4 L Hct 33.5 L MCV 90.0 MCH 30.8 MCHC 34.2 RDW 14.3 Plt Count 174 MPV 8.8 Absolute Neuts (auto) 5.5 Neutrophils % 80.9 Lymphocytes % 12.8 Monocytes % 4.3 Eosinophils % 1.5 Basophils % 0.5 Nucleated RBC % 0 PT with INR INR PTT (Actin FS) Sodium Potassium Chloride Carbon Dioxide Anion Gap BUN Creatinine Est GFR (CKD-EPI)AfAm Est GFR (CKD-EPI)NonAf POC Glucometer 108 97 Random Glucose Lactic Acid Calcium Phosphorus Magnesium Iron TIBC Iron Saturation Unsaturated IBC Ferritin Total Bilirubin AST ALT Alkaline Phosphatase Total Protein Albumin Vitamin B12 Serum Folate Urine Color Urine Appearance Urine pH Ur Specific [place] Urine Protein Urine Glucose (UA) Urine Ketones Urine Blood Urine Nitrite Urine Bilirubin Urine Urobilinogen Ur Leukocyte Esterase Urine WBC (Auto) Urine RBC (Auto) Urine Casts (Auto) U Pathogenic Cast Auto U Epithel Cells (Auto) Urine Bacteria (Auto) Stool Occult Blood Salicylates Acetaminophen 04/29/19 04/29/19 04/30/19 11:48 16:22 05:25 WBC RBC Hgb Hct MCV MCH MCHC RDW Plt Count MPV Absolute Neuts (auto) Neutrophils % Lymphocytes % Monocytes % Eosinophils % Basophils % Nucleated RBC % PT with INR INR PTT (Actin FS) Sodium 137 Potassium 5.3 H Chloride 102 Carbon Dioxide 27 Anion Gap 8 BUN 27.0 H Creatinine 1.1 Est GFR (CKD-EPI)AfAm 74.65 Est GFR (CKD-EPI)NonAf 64.41 POC Glucometer 114 85 Random Glucose 91 Lactic Acid Calcium 9.7 Phosphorus Magnesium 2.2 Iron TIBC Iron Saturation Unsaturated IBC Ferritin Total Bilirubin 0.4 AST 23 ALT 31 Alkaline Phosphatase 63 Total Protein 7.1 Albumin 3.3 L Vitamin B12 Serum Folate Urine Color Urine Appearance Urine pH Ur Specific [place] Urine Protein Urine Glucose (UA) Urine Ketones Urine Blood Urine Nitrite Urine Bilirubin Urine Urobilinogen Ur Leukocyte Esterase Urine WBC (Auto) Urine RBC (Auto) Urine Casts (Auto) U Pathogenic Cast Auto U Epithel Cells (Auto) Urine Bacteria (Auto) Stool Occult Blood Salicylates Acetaminophen 04/30/19 05/01/19 05/01/19 07:50 06:33 11:42 WBC RBC Hgb Hct MCV MCH MCHC RDW Plt Count MPV Absolute Neuts (auto) Neutrophils % Lymphocytes % Monocytes % Eosinophils % Basophils % Nucleated RBC % PT with INR INR PTT (Actin FS) Sodium 134 L 137 Potassium 5.0 5.0 Chloride 101 104 Carbon Dioxide 27 28 Anion Gap 6 L 6 L BUN 29.1 H 33.6 H Creatinine 1.3 1.2 Est GFR (CKD-EPI)AfAm 61.00 67.20 Est GFR (CKD-EPI)NonAf 52.63 57.98 POC Glucometer 103 Random Glucose 90 81 Lactic Acid Calcium 9.2 9.0 Phosphorus Magnesium Iron TIBC Iron Saturation Unsaturated IBC Ferritin Total Bilirubin AST ALT Alkaline Phosphatase Total Protein Albumin Vitamin B12 Serum Folate Urine Color Urine Appearance Urine pH Ur Specific [place] Urine Protein Urine Glucose (UA) Urine Ketones Urine Blood Urine Nitrite Urine Bilirubin Urine Urobilinogen Ur Leukocyte Esterase Urine WBC (Auto) Urine RBC (Auto) Urine Casts (Auto) U Pathogenic Cast Auto U Epithel Cells (Auto) Urine Bacteria (Auto) Stool Occult Blood Salicylates Acetaminophen 05/01/19 05/01/19 05/02/19 16:51 22:28 06:52 WBC RBC Hgb Hct MCV MCH MCHC RDW Plt Count MPV Absolute Neuts (auto) Neutrophils % Lymphocytes % Monocytes % Eosinophils % Basophils % Nucleated RBC % PT with INR INR PTT (Actin FS) Sodium Potassium Chloride Carbon Dioxide Anion Gap BUN Creatinine Est GFR (CKD-EPI)AfAm Est GFR (CKD-EPI)NonAf POC Glucometer 97 93 78 Random Glucose Lactic Acid Calcium Phosphorus Magnesium Iron TIBC Iron Saturation Unsaturated IBC Ferritin Total Bilirubin AST ALT Alkaline Phosphatase Total Protein Albumin Vitamin B12 Serum Folate Urine Color Urine Appearance Urine pH Ur Specific [place] Urine Protein Urine Glucose (UA) Urine Ketones Urine Blood Urine Nitrite Urine Bilirubin Urine Urobilinogen Ur Leukocyte Esterase Urine WBC (Auto) Urine RBC (Auto) Urine Casts (Auto) U Pathogenic Cast Auto U Epithel Cells (Auto) Urine Bacteria (Auto) Stool Occult Blood Salicylates Acetaminophen 05/03/19 05/04/19 05/04/19 07:30 07:08 07:08 WBC 5.0 RBC 3.64 L Hgb 11.2 L Hct 33.0 L MCV 90.4 MCH 30.7 MCHC 34.0 RDW 14.3 Plt Count 188 MPV 9.1 Absolute Neuts (auto) 3.4 Neutrophils % 68.0 Lymphocytes % 17.2 D Monocytes % 11.7 H D Eosinophils % 2.6 Basophils % 0.5 Nucleated RBC % 0 PT with INR INR PTT (Actin FS) Sodium 137 137 Potassium 5.4 H 5.1 Chloride 103 104 Carbon Dioxide 27 26 Anion Gap 7 L 8 BUN 38.4 H 36.5 H Creatinine 1.2 1.2 Est GFR (CKD-EPI)AfAm 67.20 67.20 Est GFR (CKD-EPI)NonAf 57.98 57.98 POC Glucometer Random Glucose 83 83 Lactic Acid Calcium 9.7 9.4 Phosphorus Magnesium 2.4 2.0 Iron TIBC Iron Saturation Unsaturated IBC Ferritin Total Bilirubin 0.3 AST 56 H ALT 93 H Alkaline Phosphatase 65 Total Protein 7.0 Albumin 3.4 Vitamin B12 Serum Folate Urine Color Urine Appearance Urine pH Ur Specific [place] Urine Protein Urine Glucose (UA) Urine Ketones Urine Blood Urine Nitrite Urine Bilirubin Urine Urobilinogen Ur Leukocyte Esterase Urine WBC (Auto) Urine RBC (Auto) Urine Casts (Auto) U Pathogenic Cast Auto U Epithel Cells (Auto) Urine Bacteria (Auto) Stool Occult Blood Salicylates Acetaminophen 05/05/19 05/05/19 05/06/19 08:08 08:08 07:05 WBC 4.5 4.8 RBC 3.64 L 3.65 L Hgb 11.0 L 11.2 L Hct 32.8 L 33.0 L MCV 90.3 90.3 MCH 30.3 30.8 MCHC 33.5 34.1 RDW 14.6 14.6 Plt Count 189 184 MPV 9.0 9.3 Absolute Neuts (auto) 3.0 3.3 Neutrophils % 65.5 68.3 Lymphocytes % 19.5 18.5 Monocytes % 12.3 H 11.1 H Eosinophils % 2.1 1.6 Basophils % 0.6 0.5 Nucleated RBC % 0 0 PT with INR INR PTT (Actin FS) Sodium 138 Potassium 4.9 Chloride 103 Carbon Dioxide 26 Anion Gap 8 BUN 40.5 H Creatinine 1.3 Est GFR (CKD-EPI)AfAm 61.00 Est GFR (CKD-EPI)NonAf 52.63 POC Glucometer Random Glucose 83 Lactic Acid Calcium 9.8 Phosphorus Magnesium 2.2 Iron TIBC Iron Saturation Unsaturated IBC Ferritin Total Bilirubin 0.3 AST 30 ALT 72 H Alkaline Phosphatase 66 Total Protein 7.2 Albumin 3.6 Vitamin B12 Serum Folate Urine Color Urine Appearance Urine pH Ur Specific [place] Urine Protein Urine Glucose (UA) Urine Ketones Urine Blood Urine Nitrite Urine Bilirubin Urine Urobilinogen Ur Leukocyte Esterase Urine WBC (Auto) Urine RBC (Auto) Urine Casts (Auto) U Pathogenic Cast Auto U Epithel Cells (Auto) Urine Bacteria (Auto) Stool Occult Blood Salicylates Acetaminophen 05/06/19 05/06/19 05/06/19 07:05 14:51 21:00 WBC RBC Hgb Hct MCV MCH MCHC RDW Plt Count MPV Absolute Neuts (auto) Neutrophils % Lymphocytes % Monocytes % Eosinophils % Basophils % Nucleated RBC % PT with INR 13.00 INR 1.10 H PTT (Actin FS) 36.9 H Sodium 139 Potassium 4.6 Chloride 105 Carbon Dioxide 27 Anion Gap 8 BUN 38.2 H Creatinine 1.2 Est GFR (CKD-EPI)AfAm 67.20 Est GFR (CKD-EPI)NonAf 57.98 POC Glucometer 151 Random Glucose 82 Lactic Acid Calcium 9.2 Phosphorus Magnesium 2.2 Iron TIBC Iron Saturation Unsaturated IBC Ferritin Total Bilirubin 0.3 AST 21 ALT 61 Alkaline Phosphatase 66 Total Protein 7.2 Albumin 3.6 Vitamin B12 Serum Folate Urine Color Urine Appearance Urine pH Ur Specific [place] Urine Protein Urine Glucose (UA) Urine Ketones Urine Blood Urine Nitrite Urine Bilirubin Urine Urobilinogen Ur Leukocyte Esterase Urine WBC (Auto) Urine RBC (Auto) Urine Casts (Auto) U Pathogenic Cast Auto U Epithel Cells (Auto) Urine Bacteria (Auto) Stool Occult Blood Salicylates Acetaminophen 05/07/19 05/07/19 05/07/19 05:20 05:20 07:34 WBC 7.3 7.5 RBC 3.27 L 3.07 L Hgb 9.8 L 9.3 L Hct 29.9 L 27.8 L MCV 91.5 90.6 MCH 29.9 30.4 MCHC 32.7 33.5 RDW 14.5 14.1 Plt Count 170 165 MPV 9.1 8.5 Absolute Neuts (auto) 5.9 Neutrophils % 79.6 Lymphocytes % 10.8 D Monocytes % 9.3 Eosinophils % 0.1 D Basophils % 0.2 Nucleated RBC % 0 PT with INR INR PTT (Actin FS) Sodium 140 Potassium 4.9 Chloride 106 Carbon Dioxide 28 Anion Gap 6 L BUN 34.5 H Creatinine 1.3 Est GFR (CKD-EPI)AfAm 61.00 Est GFR (CKD-EPI)NonAf 52.63 POC Glucometer Random Glucose 96 Lactic Acid Calcium 9.2 Phosphorus 5.7 H Magnesium 2.0 Iron TIBC Iron Saturation Unsaturated IBC Ferritin Total Bilirubin AST ALT Alkaline Phosphatase Total Protein Albumin Vitamin B12 Serum Folate Urine Color Urine Appearance Urine pH Ur Specific [place] Urine Protein Urine Glucose (UA) Urine Ketones Urine Blood Urine Nitrite Urine Bilirubin Urine Urobilinogen Ur Leukocyte Esterase Urine WBC (Auto) Urine RBC (Auto) Urine Casts (Auto) U Pathogenic Cast Auto U Epithel Cells (Auto) Urine Bacteria (Auto) Stool Occult Blood Salicylates Acetaminophen 05/08/19 05/08/19 05/09/19 06:00 06:00 07:40 WBC 12.3 H 14.1 H RBC 2.77 L 2.67 L Hgb 8.4 L 8.1 L Hct 25.0 L 24.0 L MCV 90.5 90.0 MCH 30.3 30.4 MCHC 33.4 33.8 RDW 14.4 14.5 Plt Count 116 L D 114 L MPV 9.4 D 9.4 Absolute Neuts (auto) 10.5 H 11.8 H Neutrophils % 85.7 H 83.6 H Lymphocytes % 6.9 L D 8.8 D Monocytes % 7.1 7.2 Eosinophils % 0.0 D 0.1 D Basophils % 0.3 0.3 Nucleated RBC % 0 0 PT with INR INR PTT (Actin FS) Sodium 135 L Potassium 3.9 Chloride 102 Carbon Dioxide 23 Anion Gap 10 BUN 21.3 H Creatinine 1.2 Est GFR (CKD-EPI)AfAm 67.20 Est GFR (CKD-EPI)NonAf 57.98 POC Glucometer Random Glucose 102 Lactic Acid Calcium 8.3 L Phosphorus Magnesium Iron TIBC Iron Saturation Unsaturated IBC Ferritin Total Bilirubin AST ALT Alkaline Phosphatase Total Protein Albumin Vitamin B12 Serum Folate Urine Color Urine Appearance Urine pH Ur Specific [place] Urine Protein Urine Glucose (UA) Urine Ketones Urine Blood Urine Nitrite Urine Bilirubin Urine Urobilinogen Ur Leukocyte Esterase Urine WBC (Auto) Urine RBC (Auto) Urine Casts (Auto) U Pathogenic Cast Auto U Epithel Cells (Auto) Urine Bacteria (Auto) Stool Occult Blood Salicylates Acetaminophen 05/09/19 05/09/19 05/10/19 07:40 18:00 07:30 WBC 11.3 H RBC 2.41 L Hgb 7.3 L Hct 21.8 L MCV 90.3 MCH 30.4 MCHC 33.7 RDW 14.7 Plt Count 119 L MPV 9.7 Absolute Neuts (auto) 9.6 H Neutrophils % 85.2 H Lymphocytes % 7.0 L D Monocytes % 7.2 Eosinophils % 0.5 D Basophils % 0.1 Nucleated RBC % 0 PT with INR INR PTT (Actin FS) Sodium 135 L Potassium 4.3 Chloride 102 Carbon Dioxide 26 Anion Gap 7 L BUN 16.7 Creatinine 1.1 Est GFR (CKD-EPI)AfAm 74.65 Est GFR (CKD-EPI)NonAf 64.41 POC Glucometer Random Glucose 95 Lactic Acid Calcium 8.7 Phosphorus Magnesium Iron TIBC Iron Saturation Unsaturated IBC Ferritin Total Bilirubin 0.7 AST 23 ALT 26 Alkaline Phosphatase 52 Total Protein 5.8 L Albumin 2.7 L Vitamin B12 Serum Folate Urine Color Yellow Urine Appearance Clear Urine pH 5.5 Ur Specific [place] 1.020 Urine Protein 1+ H Urine Glucose (UA) Negative Urine Ketones Trace H Urine Blood Negative Urine Nitrite Negative Urine Bilirubin Negative Urine Urobilinogen 0.2 Ur Leukocyte Esterase Negative Urine WBC (Auto) 5 Urine RBC (Auto) 1 Urine Casts (Auto) 23 U Pathogenic Cast Auto Positive U Epithel Cells (Auto) 3.3 Urine Bacteria (Auto) 3.9 Stool Occult Blood Salicylates Acetaminophen 05/10/19 05/10/19 05/10/19 07:30 11:15 16:01 WBC RBC Hgb Hct MCV MCH MCHC RDW Plt Count MPV Absolute Neuts (auto) Neutrophils % Lymphocytes % Monocytes % Eosinophils % Basophils % Nucleated RBC % PT with INR INR PTT (Actin FS) Sodium 135 L Potassium 4.1 Chloride 100 Carbon Dioxide 26 Anion Gap 9 BUN 16.7 Creatinine 1.0 Est GFR (CKD-EPI)AfAm 83.77 Est GFR (CKD-EPI)NonAf 72.28 POC Glucometer Random Glucose 92 Lactic Acid 1.3 Calcium 8.4 L Phosphorus Magnesium Iron 12 L TIBC 141 L Iron Saturation 8 L Unsaturated IBC 129 L Ferritin 569.5 H Total Bilirubin 0.6 AST 36 ALT 22 Alkaline Phosphatase 51 Total Protein 5.5 L Albumin 2.2 L Vitamin B12 Serum Folate Urine Color Urine Appearance Urine pH Ur Specific [place] Urine Protein Urine Glucose (UA) Urine Ketones Urine Blood Urine Nitrite Urine Bilirubin Urine Urobilinogen Ur Leukocyte Esterase Urine WBC (Auto) Urine RBC (Auto) Urine Casts (Auto) U Pathogenic Cast Auto U Epithel Cells (Auto) Urine Bacteria (Auto) Stool Occult Blood Salicylates Acetaminophen 05/10/19 05/10/19 05/11/19 16:01 16:01 09:30 WBC 9.0 RBC 2.39 L Hgb 7.3 L Hct 21.5 L MCV 89.8 MCH 30.5 MCHC 33.9 RDW 14.6 Plt Count 161 D MPV 9.1 Absolute Neuts (auto) 7.7 Neutrophils % 85.8 H Lymphocytes % 6.6 L Monocytes % 6.4 Eosinophils % 1.0 D Basophils % 0.2 Nucleated RBC % 0 PT with INR INR PTT (Actin FS) Sodium Potassium Chloride Carbon Dioxide Anion Gap BUN Creatinine Est GFR (CKD-EPI)AfAm Est GFR (CKD-EPI)NonAf POC Glucometer Random Glucose Lactic Acid Calcium Phosphorus Magnesium Iron TIBC Iron Saturation Unsaturated IBC Ferritin Total Bilirubin AST ALT Alkaline Phosphatase Total Protein Albumin Vitamin B12 848 Serum Folate 20 H Urine Color Urine Appearance Urine pH Ur Specific [place] Urine Protein Urine Glucose (UA) Urine Ketones Urine Blood Urine Nitrite Urine Bilirubin Urine Urobilinogen Ur Leukocyte Esterase Urine WBC (Auto) Urine RBC (Auto) Urine Casts (Auto) U Pathogenic Cast Auto U Epithel Cells (Auto) Urine Bacteria (Auto) Stool Occult Blood Salicylates Acetaminophen 05/11/19 05/11/19 09:30 13:00 WBC RBC Hgb Hct MCV MCH MCHC RDW Plt Count MPV Absolute Neuts (auto) Neutrophils % Lymphocytes % Monocytes % Eosinophils % Basophils % Nucleated RBC % PT with INR INR PTT (Actin FS) Sodium 136 Potassium 3.7 Chloride 102 Carbon Dioxide 25 Anion Gap 9 BUN 17.4 Creatinine 1.0 Est GFR (CKD-EPI)AfAm 83.77 Est GFR (CKD-EPI)NonAf 72.28 POC Glucometer Random Glucose 149 H Lactic Acid Calcium 8.3 L Phosphorus Magnesium 1.9 Iron TIBC Iron Saturation Unsaturated IBC Ferritin Total Bilirubin 0.6 AST 33 ALT 22 Alkaline Phosphatase 55 Total Protein 5.7 L Albumin 2.3 L Vitamin B12 Serum Folate Urine Color Urine Appearance Urine pH Ur Specific [place] Urine Protein Urine Glucose (UA) Urine Ketones Urine Blood Urine Nitrite Urine Bilirubin Urine Urobilinogen Ur Leukocyte Esterase Urine WBC (Auto) Urine RBC (Auto) Urine Casts (Auto) U Pathogenic Cast Auto U Epithel Cells (Auto) Urine Bacteria (Auto) Stool Occult Blood Negative Salicylates Acetaminophen HOSPITAL COURSE: Date of Admission:04/25/19 Date of Discharge: 05/17/19 Minutes to complete discharge: 60 Discharge Summary Problems reviewed: Yes Reason For Visit: BACK PAIN Current Active Problems Anemia (Acute) Back pain (Acute) CAD (coronary artery disease) (Acute) Change in bowel habits (Acute) DVT prophylaxis (Acute) Diabetes 1.5, managed as type 2 (Acute) Fever (Acute) HTN (hypertension) (Acute) Hemorrhoids that prolapse with straining and require manual replacement back inside anal canal (Acute) Intractable back pain (Acute) Leukocytosis (Acute) Osteoarthritis (Acute) Prophylactic measure (Acute) Prophylactic measure (Acute) Residual hemorrhoidal skin tags (Acute) S/P TAVR (transcatheter aortic valve replacement) (Acute) S/P lumbar spinal fusion (Acute) Urinary retention (Acute) Procedures: Principal: Operative Note. - Note: Operative Date: 05/06/19. Pre- Operative Diagnosis: Lumbar spondylosis and spinal cord neurofibroma. LBP. Operation: L2-L5 Laminectomies and osteotomies, with removal of foramenal disc L45 and L2-L5 fusion with pedicle screws and arthrodesis, insertion of cages, and correction of deformity. Post-Operative Diagnosis: Other (lumbar spondylosis and large right L45 foramenal disc). Surgeon: Aureliano Porter. Naval Engineer: Alysa Mckeon Anesthesiologist/LIVING ADVISOR: Bogdan Benavides. Anesthesia: General, Spinal (intra-op duramorph spinal given), Local. Specimens Removed: L45 disc fragment. Estimated Blood Loss (mls): 250. Drains & Tubes with Location: right lumbar paravetebral ISAC drain. Drains, Volume Out (mls): 250 ( parks). Fluid Volume Replaced (mls): 1,500 Other Procedures: CT/LUMBAR SPINE CT W/O CONTRAST. IMPRESSION: See discussion above. Mild levoscoliosis of the lumbar spine with significant degenerative disc at L2-L3 and L3-L4 level. , mainly on the right. Multilevel disc bulge, as described above reaching and possibly slightly. impinging right L2 nerve root at L2-L3 level, impinging right L3 nerve root at L3-L4 level and. reaching the left. Reaching the right L4 nerve root at L4-L5 level. A preliminary report was forwarded by the [employer] service, [facility] Reported By: Thom Wallis MD. 04/25/19 1504. . CXR 2018. Impression: No acute chest pathology. Old left rib trauma. Reported By: Florentino Calix MD 04/25/19 1001. . MRI L spine 2018. IMPRESSION. . L2-L3. Disc space narrowing. Anterior spondylosis. Posterior disc osteophyte complex extending. beyond the contour of the superior endplate of L3, deforming ventral surface of the thecal sac. No. compression of L2 nerves traversing through the neural foramina. . L3-L4. Posterior disc osteophyte complex as seen on the CT of lumbosacral spine, deforming. ventral surface of the thecal sac. Anterolateral disc bulge with extension of the disc into the. neural foramina. Bilateral neural foramen narrowing right greater than the left.. Facet joint. arthropathy. Hypertrophic superior articular process of L4, thickened ligamentum flavum,. granulation tissue contacting right L3 nerve in the right neural foramen. . L4-L5. Facet joint arthropathy with thickened ligamentum flavum. No evidence of disc displacement. , central spinal canal stenosis. Normal left neural foramen. Elliptical soft tissue mass is noted. in the right neural foramen with extraforaminal lateral component concerning for the neurofibroma. of the right L4 nerve. The perineural fat within the right neural foramen is completely effaced. MRI with IV contrast enhancement for confirmation of the findings recommended. Reported By: Ramírez Black MD 04/29/[address] L s-pine 05/06/2019. IMPRESSION: Status post posterior fusion of L2-L5, as described above in satisfactory alignment. Left transpedicular screw at L2 level is encroaching on the left superior lateral margin of the. spinal canal. Correlate clinically. Reported By: Thom Wallis MD. . CXR 05/09/2019. Impression. No evidence of pulmonary infiltrates, congestive changes. No pneumothorax, or large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
[2019-05-17 15:35] VITALS: BP 124/55; PULSE 82; TEMP 98.4
--- NOTE | 2019-05-29 12:42 | SURG ---
Surgery Set [employer] Note [employer]: Alysa Mckeon PA-C Date of Service: 05/06/19 Diagnosis: Lumbar degenerative scoliosis with right L45 foraminal disc herniation Procedure: 1) L2-5 Posterior segmental instrumentation 2) Fluoroscopy 3) Local autograft 4) L23 Interbody & Posterior Lateral Arthrodesis 5) L34 Interbody & Posterior Lateral Arthrodesis 6) L45 posterior lateral arthrodesis 7) L23 Interbody cage 8) L34 interbody cage 9) Correction of deformity 10) Ultrasound examination 11) Microdissection 12) Bilateral soft tissue advancement flaps 50cm^2 13) L23 Laminectomies for stenosis 14) L34 Laminectomies for stenosis 15) Transforaminal approach for discectomy I was present for the entirety of the operative procedure. For further detail, please refer to operative report. Visit type - Case Type Case Type: ED Admission - Emergency Emergency Visit: Yes ED Registration Date: 04/25/19 Care time: The patient presented to the Emergency Department on the above date and was hospitalized for further evaluation of their emergent condition. - New patient This patient is new to me today: Yes Date on this admission: 05/06/19
== END 2019-05-17 17:30 | DRG 457 ==
LOC: JER 20:47 → JERBED 04-25 05:22 → J6S 04-25 10:40 → JSAMEDAYSX 05-06 16:24 → JICU 05-06 20:28 → J8W 05-07 14:30
PROVIDERS: ADMIT Internal Medicine; ATTEND Internal Medicine
PROC: 01NB0ZZ Release Lumbar Nerve, Open Approach (ICD-10-PCS; 2019-05-06)
PROC: 0SB20ZZ Excision of Lumbar Vertebral Disc, Open Approach (ICD-10-PCS; 2019-05-06)
PROC: 0JX70ZB Transfer Back Subcutaneous Tissue and Fascia with Skin and Subcutaneous Tissue, Open Approach (ICD-10-PCS; 2019-05-06)
PROC: 0SB20ZZ Excision of Lumbar Vertebral Disc, Open Approach (ICD-10-PCS; 2019-05-06)
PROC: B01BZZZ Fluoroscopy of Spinal Cord (ICD-10-PCS; 2019-05-06)
PROC: 0SG10AJ Fusion of 2 or more Lumbar Vertebral Joints with Interbody Fusion Device, Posterior Approach, Anterior Column, Open Approach (ICD-10-PCS; principal; 2019-05-06 11:00)
PROC: 30233N1 Transfusion of Nonautologous Red Blood Cells into Peripheral Vein, Percutaneous Approach (ICD-10-PCS; 2019-05-11)
DX: M41.86 Other forms of scoliosis, lumbar region (principal); N39.0 Urinary tract infection, site not specified; E87.1 Hypo-osmolality and hyponatremia; M54.9 Dorsalgia, unspecified; E78.5 Hyperlipidemia, unspecified; I25.10 Atherosclerotic heart disease of native coronary artery without angina pectoris; E11.9 Type 2 diabetes mellitus without complications; M51.26 Other intervertebral disc displacement, lumbar region; D36.17 Benign neoplasm of peripheral nerves and autonomic nervous system of trunk, unspecified; N18.3 Chronic kidney disease, stage 3 (moderate); R33.9 Retention of urine, unspecified; D64.9 Anemia, unspecified; D72.829 Elevated white blood cell count, unspecified; Z98.61 Coronary angioplasty status; N40.0 Benign prostatic hyperplasia without lower urinary tract symptoms; R50.9 Fever, unspecified; H93.19 Tinnitus, unspecified ear; M19.90 Unspecified osteoarthritis, unspecified site; I12.9 Hypertensive chronic kidney disease with stage 1 through stage 4 chronic kidney disease, or unspecified chronic kidney disease
CPT/HCPCS: 36415; 36430; 71045-TC-FY; 71275-TC; 72131-TC; 72148-TC; 76000-TC-FY; 80048; 80053; 80307; 81003; 82272; 82607; 82728; 82746; 82962; 83540; 83550; 83605; 83735; 84100; 85025; 85027; 85379; 85610; 85730; 86850; 86900; 86901; 86922; 87040; 87086; 88304-TC; 93005; 93010; 93970-TC; 94760; 97116-GP; 97162-GP; 99284-25; J0131; J1644; P9038; P9058; Q9967

== ENCOUNTER 2022-09-28 03:55 | Day surgery (SDC) | payer OTHER ==
[2022-09-26 18:34] VITALS: BMI 25.3
[~2022-09-28 03:55] MED LIST: TOBRAMYCIN/DEXAMETHASONE OPHTH. OINTMENT 1 TUBE OS ONE
[2022-09-28] MEDS ORDERED: KETOROLAC TROMETHAMINE 0.5% EYE DROP 1 DROP DROPS ONE (06:13)
[2022-09-28] MEDS ORDERED: CIPROFLOXACIN HCL 0.3% OPHTH 2.5ML BOTTLE ONE (06:13)
[2022-09-28] MEDS ORDERED: PHENYLEPHRINE 2.5% OPTHALMIC DROP 2ML BOTTLE ONE (06:13)
[2022-09-28] MEDS ORDERED: TROPICAMIDE 1% OPHTH SOLN 15 ML BOTTLE ONE (06:14)
[2022-09-28 07:06] VITALS: RESP 18
[2022-09-28] MEDS ORDERED: PROPOFOL 20 ML ONE ×2 (07:17→07:52)
[2022-09-28] MEDS ORDERED: MIDAZOLAM HCL 2 MG/2 ML SINGLE DOSE VIAL ONE (07:18)
[2022-09-28] MEDS ORDERED: TOBRAMYCIN/DEXAMETHASONE OPHTH. OINTMENT 1 TUBE ONE (07:28)
[2022-09-28] MEDS ORDERED: LIDOCAINE HCL/PF 1% SDV 5ML VIAL ONE (07:28)
[2022-09-28] MEDS ORDERED: TETRACAINE 0.5% OPHTH SOLN 2 ML BOTTLE ONE (07:29)
[2022-09-28] MEDS ORDERED: POVIDONE-IODINE 5% OPHTHALMIC PREP 30 ML SOLUTION ONE (07:29)
[2022-09-28] MEDS ORDERED: ACETAMINOPHEN 325 MG TABLET (FP) PO PRN (07:31)
[2022-09-28] MEDS ORDERED: KETOROLAC TROMETHAMINE 0.5% EYE DROP 1 DROP DROPS OP SCH (07:45)
[2022-09-28] MEDS: TROPICAMIDE 1% OPHTH SOLN 15 ML BOTTLE OP SCH ×3 (08:00→08:10)
[2022-09-28] MEDS: PHENYLEPHRINE 2.5% OPHTH SOLN 15 ML BOTTLE OP SCH ×3 (08:00→08:10)
[2022-09-28] MEDS: CIPROFLOXACIN HCL 0.3% OPHTH 2.5ML BOTTLE OP SCH ×3 (08:00→08:30)
[2022-09-28] MEDS ORDERED: TETRACAINE 0.5% OPHTH SOLN 2 ML BOTTLE OS ONE (10:14)
[2022-09-28] MEDS ORDERED: POVIDONE-IODINE 5% OPHTHALMIC PREP 30 ML SOLUTION OS ONE (10:16)
[2022-09-28] MEDS ORDERED: BSS (NA/CA/MG/K) BALANCED SALT SOLUTION OPHTH SOLN 15 ML BOTTLE OS ONE (10:20)
[2022-09-28] MEDS ORDERED: LIDOCAINE 1% P/F 10 MG/ML VIAL PNB ONE (10:25)
[2022-09-28] MEDS ORDERED: CHONDROITIN SU A/HYALUR SOD 1 KIT IO ONE (10:28)
[2022-09-28] MEDS ORDERED: EPINEPHrine/PF 1 MG/1 ML (1:1,000) AMPULE SQ ONE (10:35)
[2022-09-28] MEDS ORDERED: ACETYLCHOLINE 1:100 INTRA-OCUL 20 MG/2 ML KIT IO ONE (10:56)
[2022-09-28] MEDS ORDERED: TOBRAMYCIN/DEXAMETHASONE OPHTH. OINTMENT 1 TUBE OS ONE (10:59)
[2022-09-28] MEDS ORDERED: ACETYLCHOLINE 1:100 INTRA-OCUL 20 MG/2 ML KIT ONE (11:30)
[2022-09-28 13:00] VITALS: TEMP 97.9
[2022-09-28 14:18] VITALS: BP 155/68; PULSE 72
== END 2022-09-28 11:35 | disposition home or self-care (01) ==
LOC: JASU-SURG 03:55
PROVIDERS: ATTEND Ophthalmology
PROC: 08RK3JZ Replacement of Left Lens with Synthetic Substitute, Percutaneous Approach (ICD-10-PCS; principal; 2022-09-28 07:30)
DX: H25.12 Age-related nuclear cataract, left eye (principal); H57.03 Miosis